=== PATIENT | male | born 1965 | race Caucasian/White ===

== ENCOUNTER 2018-06-26 02:34 | Outpatient (CLI) | payer MEDICAID, SELFPAY ==
[2018-06-26 11:40] LABS: HCT 47.5 % (40.0-50.0); HGB 15.9 g/dL (13.5-17.5); Mean Corp. HGB Concentration 33.5 g/dL (32.0-36.0); Mean Corpuscular Hemoglobin 29.4 pg (27.0-33.0); Mean Platelet Volume 11.4 fL (8.0-11.0); Platelet Count 227 x1000/uL (130-400); RBC Distribution Width 13.7 % (11.8-14.1); White Blood Cell Count 7.37 k/cumm (4.4-10.8)
[2018-06-26 12:15] LABS: Hemoglobin A1C 7.6 % (4.5-6.2)
[2018-06-26 12:35] LABS: ALT 55 U/L (12-78); AST 22 U/L (15-37); Albumin 3.9 g/dL (3.4-5.0); Alkaline Phosphatase 44 U/L (46-116); Anion Gap 6.6 mmol/L (3-11); BUN 16 mg/dL (7-18); Bilirubin, Total 0.4 mg/dL (0.2-1.0); CO2 30.4 mmol/L (21.0-32.0); CREATININE 0.87 mg/dL (0.70-1.30); Calcium 9.7 mg/dL (8.5-10.1); Chloride 104 mmol/L (98-107); Cholesterol 212 mg/dL (50-200); Glucose 132 mg/dL (70-100); HDL Cholesterol 45 mg/dL (40-60); LDL CHOLESTEROL 153 mg/dL (<100); Sodium 141 mmol/L (136-145); Total Protein 7.3 g/dL (6.4-8.2); Triglyceride 91 mg/dL (30-150)
[2018-06-26 12:42] LABS: COMMENT (LAB VIEW ONLY) 269.73 mg/dL; Microalb ug/mg Crea 43.5 ug/mg Cr
== END 2018-06-26 02:54 ==
PROVIDERS: PCP Family Medicine; Visit Provider Family Medicine
DX: E11.9 Type 2 diabetes mellitus without complications (principal); I10 Essential (primary) hypertension; G47.33 Obstructive sleep apnea (adult) (pediatric); Z00.00 Encounter for general adult medical examination without abnormal findings; Z01.818 Encounter for other preprocedural examination
CPT/HCPCS: 36415; 80053; 80061; 83721; 85027; 82043; 82570; 83036

== ENCOUNTER 2018-09-02 08:55 | Emergency (ER) | payer MEDICAID, SELFPAY ==
[2018-09-02 09:03] VITALS: BP 135/82; PULSE 109; RESP 18; TEMP 37.2; O2SAT 98
[2018-09-02 09:38] VITALS: PULSE 103
--- NOTE | 2018-09-02 09:47 | W.ED.GENAD ---
Discharge Plan Disposition Patient Disposition: HOME Condition: Stable Discharge Details Chief Complaint: RespSymp Clinical Impression: Sinusitis, Cough, Hyperglycemia, History of diabetes mellitus Primary Care Provider: Prem Maddox ED Provider: Alisa Chance Home Meds and New Rx's Prescriptions: New doxycycline hyclate 100 mg capsule 100 mg PO BID 7 Days Qty: 14 RF: 0 benzonatate [Tessalon Perles] 100 mg capsule 100 mg PO TID PRN (Reason: cough) Qty: 10 RF: 0 Continued amlodipine 5 mg tablet 5 mg PO DAILY Qty: 90 RF: 3 metformin 500 mg tablet 500 mg PO BID Qty: 180 RF: 3 imodium A-D 5 tab PO DAILY RF: 0 lisinopril 40 MG tablet 1 tab PO QAM Qty: 90 RF: 4 gabapentin 600 mg tablet 1,200 mg PO HS Qty: 180 RF: 4 Discharge Instructions Instructions: Sinusitis (ED), Diabetic Hyperglycemia (ED), Acute Cough (ED) Additional Instructions: Drink plenty of fluids and get plenty of rest. Take the antibiotics until finished. Take the cough medicine as needed and directed. Call your primary care doctor today to schedule a follow-up appointment for reevaluation within the next week. Continue to watch your intake of carbohydrates and sugar to help control your blood sugar. Check your sugar regularly. Return immediately to the emergency department any worsening or new concerning symptoms. Discharge Data Discharge Date/Time-TO BE ENTERED AT DEPARTURE: 09/02/18 10:37 Discharge Physician: Alisa Chance Medical Decision Making 53yo M w/ a h/o diabetes, hypertension who presents with sinus congestion and pain x 7 days, worsening with postnasal drip and cough with yellow sputum for the past 3 days. No shortness of breath or chest pain. Tactile fevers and chills. Heart rate mildly tachycardic, improved after evaluation in room. Normal respiratory rate and oxygen saturation. Afebrile. Patient appears nontoxic. He is speaking in full sentences, no submandibular swelling, no trismus, no drooling. Lungs clear to auscultation. Differential diagnosis includes sinusitis, pneumonia, URI. As patient does not appear in any acute respiratory distress, without complaint of shortness of breath and with normal lung sounds, do not suspect an acute severe pneumonia, but he was offered a chest x-ray but he declined this. Presentation does not appear consistent with flu, and since his symptoms have been present for 7 days, no utility likely with treatment. Patient states his glucose has been around 190. States he does not often check his sugar at home and his diet has been off lately. Accu-Chek 233. Patient was agreeable to lab work which was essentially unremarkable with normal bicarb and anion gap 11.9. Patient was instructed to increase his fluid intake, watch his carbohydrates and sugars and to check his sugar regularly. Due to his history of diabetes, will send home with a prescription for doxycycline to treat for sinusitis and possible early pneumonia. He is instructed to follow-up with your primary care doctor for reevaluation and return here immediately if worse. Medical Records Medical records reviewed: Yes I reviewed the patient's medical records. Lab Data Lab results reviewed: Yes I reviewed the patient's lab results. Laboratory Tests Range/Units 09/02/18 09/02/18 09:46 09:46 WBC (4.4-10.8) k/cumm 9.33 RBC (4.50-6.00) m/cumm 5.09 Hgb (13.5-17.5) g/dL 15.1 Hct (40.0-50.0) % 43.8 MCV (80-95) fL 86.1 MCH (27.0-33.0) pg 29.7 MCHC (32.0-36.0) g/dL 34.5 RDW (11.8-14.1) % 13.7 Plt Count (130-400) x1000/uL 198 MPV (8.0-11.0) fL 10.8 Immature Gran % 0.2 Neutrophils % 73.4 Lymphocytes % 13.6 Monocytes % 10.7 Eosinophils % 1.8 Basophils % 0.3 Absolute Neutrophils (1.2-6.7) k/cumm 6.84 H Absolute Lymphocytes (1.2-3.4) k/cumm 1.27 Absolute Monocytes (0.11-0.7) k/cumm 1.00 H Absolute Eosinophils (0.0-0.7) k/cumm 0.17 Absolute Basophils (0.0-0.2) k/cumm 0.03 Sodium (136-145) mmol/L 136 Potassium (3.5-5.1) mmol/L 4.3 Chloride (98-107) mmol/L 101 Carbon Dioxide (21.0-32.0) mmol/L 23.1 Anion Gap (3-11) mmol/L 11.9 H BUN (7-18) mg/dL 16 Creatinine (0.70-1.30) mg/dL 0.76 Estimated GFR/1.73 m2 (mL/min/1.73m2) >= 60.00 Glucose (70-100) mg/dL 261 H Calcium (8.5-10.1) mg/dL 8.9 HPI General Mode of arrival: ambulatory. Date/Time Provider Initiated Documentation: 09/02/18 09:07. Limitations to Documentation: no limitations. Information obtained by: patient. HPI Narrative: Patient is a 53-year-old male with a history of diabetes, hypertension, colitis who presents for sinus congestion and green nasal discharge for the past 2 days, worse over the past 3 days, now with cough with yellow and brown sputum. He admits to occasional hot and cold chills but denies any known fever. He states he has been eating and drinking normally. He also admits to generalized fatigue and malaise. He denies any chest pain or shortness of breath. He denies any recent antibiotics. He states he has been taking DayQuil and NyQuil with some relief. Related Data Home Medications Medication Instructions Recorded Confirmed Imodium A-D 5 tab PO DAILY 11/16/14 09/02/18 lisinopril 1 tab PO QAM #90 tab 09/26/17 09/02/18 gabapentin 600 mg tablet 1,200 mg PO HS #180 tab 04/21/18 09/02/18 amlodipine 5 mg tablet 5 mg PO DAILY #90 tab 06/11/18 09/02/18 metformin 500 mg tablet 500 mg PO BID #180 tab 07/07/18 07/07/18 benzonatate [Tessalon Perles] 100 mg PO TID PRN #10 cap 09/02/18 doxycycline hyclate 100 mg PO BID 7 Days #14 cap 09/02/18 Previous Rx's Medication Instructions Recorded lisinopril 1 tab PO QAM #90 tab 09/26/17 gabapentin 600 mg tablet 1,200 mg PO HS #180 tab 04/21/18 amlodipine 5 mg tablet 5 mg PO DAILY #90 tab 06/11/18 metformin 500 mg tablet 500 mg PO BID #180 tab 07/07/18 benzonatate [Tessalon Perles] 100 mg PO TID PRN #10 cap 09/02/18 doxycycline hyclate 100 mg PO BID 7 Days #14 cap 09/02/18 Allergies Allergy/AdvReac Type Severity Reaction Status Date / Time Penicillins Allergy Mild SKIN RASH Unverified 09/02/18 09:08 General Stated Complaint: RespSymp SRINIVAS: 3 Review of Systems Review of Systems All systems reviewed & are unremarkable except as noted in HPI and below Constitutional Reports as per HPI, Reports chills, Reports fatigue, Denies fever(s) and Reports malaise Eyes Denies blurry vision ENT Denies dizziness, Reports nasal congestion, Reports nasal discharge, Reports sinus pain, Reports sinus pressure, Denies sore throat and Denies throat swelling Cardiovascular Denies chest pain and Denies dyspnea Respiratory Reports cough and Denies dyspnea Gastrointestinal Denies abdominal pain, Denies diarrhea and Denies vomiting Genitourinary Denies hematuria and Denies dysuria Musculoskeletal Denies back pain and Denies numbness Integumentary/Breasts Denies lesions and Denies rash Neurologic Denies dizziness, Denies focal weakness and Denies numbness Endocrine Reports fatigue Allergic/Immunologic Denies throat swelling [facility] Medical History Colitis (Acute) Hyperlipemia (Acute) Diabetes (Chronic) HTN (hypertension) (Chronic) Kidney stones (Chronic) Surgical History Appendectomy Repair of inguinal hernia Family History Mother Diabetes Neoplasm Father Diabetes Sister No problems noted. Brother No problems noted. Brother No problems noted. Son No problems noted. Daughter No problems noted. Social History household members: significant other and children pets and animals: No sexually active: Yes do you think of yourself as: straight/heterosexual current gender identity: male frequency: does not exercise Smoking and Tabacco status: Never second hand exposure: Yes alcohol intake: current alcohol intake frequency: a few times a week Alcohol type: beer substance use type: does not use shantell/episcopal: Johovah Witness agree to transfusion: No What is your relationship status?: living with partner How often do you talk on the phone with friends or family?: never How often do you get together with friends or relatives?: never How often do you attend orthodoxy or christianity services?: 1-3 times per year Do you belong to any clubs or organized social groups?: no Panel score (0-1 are the most socially isolated patients): 1 Exam Const General: cooperative and no acute distress Orientation: alert and awake [facility] Head: normal to inspection Ears: hearing grossly normal bilaterally, external ears normal and TM's normal bilaterally General nose exam: external nose normal Face and sinus: normal facial exam and sinuses nontender Mouth: oral mucosae normal Teeth and gingiva: dentition normal Throat: posterior oropharynx normal Eyes General: appearance normal, both eyes and all related structures Eyelids: eyelids normal Pupils: PERRL EOM: EOM intact bilaterally Neck Neck: normal visual inspection Lymphatic: no lymphadenopathy noted Chest Chest: normal inspection of the chest Resp Effort & Inspection: normal respiratory effort and able to speak in complete sentences Auscultation: clear to auscultation bilaterally Cardio Rate: regular rate Rhythm: regular rhythm GI Inspection: normal to inspection and obesity Palpation: soft, not firm, no guarding, no hepatosplenomegaly, no masses and nontender Auscultation: normal bowel sounds Skin General skin exam: no rashes or lesions noted Neuro General: alert and awake Cognition: normal cognition Speech: speech normal Gait: normal gait Motor: muscle tone normal throughout Sensory Exam: no sensory deficits noted Extrem General: normal to inspection, full ROM, normal capillary refill and no edema Psych Appearance: grossly normal Mental Status: mental status grossly normal Speech and Movement: speech and movement normal Affect: normal affect Thought Process: normal Course Vital Signs Temperature 99.0 F 09/02/18 09:03 Pulse 109 H 09/02/18 09:03 Respiratory Rate 18 09/02/18 09:03 Blood Pressure 135/82 09/02/18 09:03 Pulse Oximetry 98 09/02/18 09:03 Temperature 99.0 F 09/02/18 09:03 Temperature Source Temporal Artery Scan 09/02/18 09:03 Pulse 103 H 09/02/18 09:38 Respiratory Rate 18 09/02/18 09:03 Respiratory Effort 09/02/18 09:05 Respiratory Depth Normal 09/02/18 09:05 Blood Pressure 135/82 09/02/18 09:03 Blood Pressure Position Sitting 09/02/18 09:03 Pulse Oximetry 98 09/02/18 09:03 Oxygen Delivery Method Room Air 09/02/18 09:03 Oxygen Flow Rate 0 09/02/18 09:03 Pain Level 6 09/02/18 09:03 Comment 09/02/18 09:38
[2018-09-02 09:59] LABS: Abs Immature Grans 0.02 k/cumm (0.0-0.09); Absolute Basophil Count 0.03 k/cumm (0.0-0.2); Absolute Eosinophil Count 0.17 k/cumm (0.0-0.7); Absolute Lymphocyte Count 1.27 k/cumm (1.2-3.4); Absolute Neutrophil Count 6.84 k/cumm (1.2-6.7); Basophils % 0.3; Eosinophils % 1.8; HCT 43.8 % (40.0-50.0); HGB 15.1 g/dL (13.5-17.5); Immature Grans % 0.2; Lymphocytes % 13.6; Mean Corp. HGB Concentration 34.5 g/dL (32.0-36.0); Mean Corpuscular Hemoglobin 29.7 pg (27.0-33.0); Mean Corpuscular Volume 86.1 fL (80-95); Mean Platelet Volume 10.8 fL (8.0-11.0); Monocytes % 10.7; Neutrophils % 73.4; Platelet Count 198 x1000/uL (130-400); RBC 5.09 m/cumm (4.50-6.00); RBC Distribution Width 13.7 % (11.8-14.1); White Blood Cell Count 9.33 k/cumm (4.4-10.8)
[2018-09-02 10:05] LABS: Anion Gap 11.9 mmol/L (3-11); BUN 16 mg/dL (7-18); CO2 23.1 mmol/L (21.0-32.0); CREATININE 0.76 mg/dL (0.70-1.30); Calcium 8.9 mg/dL (8.5-10.1); Chloride 101 mmol/L (98-107); Glucose 261 mg/dL (70-100); Potassium 4.3 mmol/L (3.5-5.1); Sodium 136 mmol/L (136-145)
== END 2018-09-02 10:37 | disposition home or self-care (01) ==
PROVIDERS: Emergency Provider Physician Assistant; PCP Family Medicine
DX: J01.90 Acute sinusitis, unspecified (principal); R05 Cough; E11.65 Type 2 diabetes mellitus with hyperglycemia; I10 Essential (primary) hypertension
CPT/HCPCS: 36415; 80048; 99283; 85025

== ENCOUNTER 2018-10-14 08:17 | Emergency (ER) | payer MEDICAID, SELFPAY ==
[2018-10-14 08:21] VITALS: BP 150/77; PULSE 102; RESP 14; TEMP 36.5; O2SAT 95
--- NOTE | 2018-10-14 08:57 | DI.RAD_ITS ---
SYMPTOM/DIAGNOSIS: COUGH, CONGESTION, WHEEZE PA AND LATERAL CHEST: Comparison is made with 12/29/13. The heart size is normal. The lungs show minimal scarring. No infiltrate, effusion or pulmonary edema is seen. IMPRESSION: No acute abnormality.
--- NOTE | 2018-10-14 08:58 | W.ED.GENAD ---
Discharge Plan Disposition Patient Disposition: HOME Condition: Improving Discharge Details Chief Complaint: RespSymp Clinical Impression: Acute bronchitis Primary Care Provider: Prem Maddox ED Provider: Mark Lim Home Meds and New Rx's Prescriptions: New azithromycin 250 mg tablet See Rx Instructions .ROUTE .COMPLEX Qty: 6 RF: 0 Continued amlodipine 5 mg tablet 5 mg PO DAILY Qty: 90 RF: 3 blood-glucose meter [[employer]Touch Ultra2] kit .ROUTE .MEDSUPPLY Qty: 1 RF: 0 OneTouch Ultra Blue Test Strip strip .ROUTE .MEDSUPPLY Qty: 100 RF: 4 imodium A-D 5 tab PO DAILY RF: 0 gabapentin 600 mg tablet 1,200 mg PO HS Qty: 180 RF: 4 lancets [OneTouch Delica Lancets] 33 gauge misc .ROUTE DAILY Qty: 100 RF: 4 lisinopril 40 mg tablet 40 mg PO QAM Qty: 90 RF: 4 benzonatate [Tessalon Perles] 100 mg capsule 100 mg PO TID PRN (Reason: cough) Qty: 10 RF: 0 Discharge Instructions Instructions: Acute Bronchitis (ED) Additional Instructions: Follow-up with regular doctor if not improving in 10 days time. May use albuterol inhaler, as discussed, every 4 hours as needed during times of illness. Take antibiotic as prescribed. Return for any acute concern Medical Decision Making 53-year-old male with 3 to 4 days of upper respiratory illness with cough, congestion, general malaise. Slightly tachycardic with a pulse of 102 but otherwise unremarkable vital signs and oxygenating normally. His exam is notable for discrete end expiratory wheeze with rhonchi. Does appear to have acute bronchitis with mild bronchospasm. Differential diagnosis includes bronchitis, pneumonia. Patient given inhaled DuoNeb updraft, referred for chest x-ray which does reveal mild plate like atelectasis on the left, but no focal consolidation, reviewed with Dr. Sharma. Will place on antibiotics with inhaler for home. He understands follow-up and return precautions HPI General Mode of arrival: ambulatory. Date/Time Provider Initiated Documentation: 10/14/18 08:52. Limitations to Documentation: no limitations. Information obtained by: patient. History of Present Illness 53 year old M presents to the emergency department with the chief complaint of Cough and congestion for days, described as moderate, Quality is described as dull, Patient reports no radiation. Patient started experiencing this day(s) and it has been intermittent. No relieving factors improve symptom(s), No exacerbating factors reported . Patient notes cough and fever/chills; denies chest pain, nausea/vomiting and shortness of breath. Patient did receive the following treatments prior to arrival, none Related Data Home Medications Medication Instructions Recorded Confirmed Imodium A-D 5 tab PO DAILY 11/16/14 10/14/18 gabapentin 600 mg tablet 1,200 mg PO HS #180 tab 04/21/18 10/14/18 amlodipine 5 mg tablet 5 mg PO DAILY #90 tab 06/11/18 10/14/18 benzonatate [Tessalon Perles] 100 mg PO TID PRN #10 cap 09/02/18 10/14/18 blood sugar diagnostic strips #100 each 09/25/18 10/14/18 blood-glucose meter kit #1 each 09/25/18 10/14/18 lancets 33 gauge #100 each 09/25/18 10/14/18 lisinopril 40 mg tablet 40 mg PO QAM #90 tab 09/29/18 10/14/18 azithromycin See Rx Instructions .ROUTE 10/14/18 .COMPLEX #6 tab Previous Rx's Medication Instructions Recorded gabapentin 600 mg tablet 1,200 mg PO HS #180 tab 04/21/18 amlodipine 5 mg tablet 5 mg PO DAILY #90 tab 06/11/18 benzonatate [Tessalon Perles] 100 mg PO TID PRN #10 cap 09/02/18 blood sugar diagnostic strips #100 each 09/25/18 blood-glucose meter kit #1 each 09/25/18 lancets 33 gauge #100 each 09/25/18 lisinopril 40 mg tablet 40 mg PO QAM #90 tab 09/29/18 azithromycin See Rx Instructions .ROUTE 10/14/18 .COMPLEX #6 tab Allergies Allergy/AdvReac Type Severity Reaction Status Date / Time Penicillins Allergy Mild SKIN RASH Unverified 10/14/18 08:25 General Stated Complaint: RespSymp SRINIVAS: 3 Review of Systems Review of Systems 6 systems reviewed and otherwise negative [facility] Medical History Colitis (Acute) Hyperlipemia (Acute) Diabetes (Chronic) HTN (hypertension) (Chronic) Kidney stones (Chronic) Surgical History Appendectomy Repair of inguinal hernia Family History Mother Diabetes Neoplasm Father Diabetes Sister No problems noted. Brother No problems noted. Brother No problems noted. Son No problems noted. Daughter No problems noted. Social History Smoking/Tobacco Use Status: Never Second Hand Exposure: Yes Alcohol Intake: current Alcohol Intake frequency: a few times a week Alcohol type: beer Drug use: Never Substance use type: does not use Household members: significant other and children Pets and animals: No Sexually active: Yes Do you think of yourself as: straight/heterosexual Current gender identity: male What is your relationship status?: living with partner How often do you talk on the phone with friends or family?: never How often do you get together with friends or relatives?: never How often do you attend congregational or jehovah's witness services?: 1-3 times per year Do you belong to any clubs or organized social groups?: no Panel score (0-1 are the most socially isolated patients): 1 Frequency: does not exercise Mally/Adventist: Johovah Witness Agree to transfusion: No Do you feel safe at home: Yes Do you feel safe in your relationship?: Yes Exam Narrative Exam Narrative: GEN: awake, alert, oriented 3. Pleasant, well groomed, interactive. HEAD: Normocephalic, atraumatic ENT: Mucous membranes moist, oropharynx unremarkable, External ear exam unremarkable EYES: PERRL, EOMI NECK: Full ROM, no GUCCI, no menigismus CHEST/RESP: Nontender, bilateral mild end expiratory wheeze with few scattered rhonchi CARDIOVASCULAR: RRR, no murmur, rub be. 2+ Rad pulse bilateral ABDOMEN: Soft, nontender, no mass. +Bowel sounds EXT: Full ROM, no edema, no rash Neuro: Grossly normal neurologic exam, conversant, interactive. Psych: Speech fluent, thoughts congruent, affect normal Course Vital Signs Temperature 36.5 C 10/14/18 08:21 Pulse 102 H 10/14/18 08:21 Respiratory Rate 14 10/14/18 08:21 Blood Pressure 150/77 H 10/14/18 08:21 Pulse Oximetry 95 10/14/18 08:21 Temperature 36.5 C 10/14/18 08:21 Temperature Source Temporal Artery Scan 10/14/18 08:21 Pulse 102 H 10/14/18 08:21 Respiratory Rate 14 10/14/18 08:21 Respiratory Effort Non-Labored 10/14/18 08:23 Respiratory Depth Normal 10/14/18 08:23 Blood Pressure 150/77 H 10/14/18 08:21 Blood Pressure Position Sitting 10/14/18 08:21 Pulse Oximetry 95 10/14/18 08:21 Oxygen Delivery Method Room Air 10/14/18 08:21 Oxygen Flow Rate 0 10/14/18 08:21 Pain Level 0 10/14/18 08:21
--- NOTE | 2018-10-14 09:01 | ED.GENADUL_ITS ---
Discharge Plan Disposition Patient Disposition: HOME Condition: Improving Discharge Details Chief Complaint: RespSymp Clinical Impression: Acute bronchitis Primary Care Provider: Prem Maddox ED Provider: Mark Lim Home Meds and New Rx's Prescriptions: New azithromycin 250 mg tablet See Rx Instructions .ROUTE .COMPLEX Qty: 6 RF: 0 Continued amlodipine 5 mg tablet 5 mg PO DAILY Qty: 90 RF: 3 blood-glucose meter [[employer] Ultra2] kit .ROUTE .MEDSUPPLY Qty: 1 RF: 0 OneTouch Ultra Blue Test Strip strip .ROUTE .MEDSUPPLY Qty: 100 RF: 4 imodium A-D 5 tab PO DAILY RF: 0 gabapentin 600 mg tablet 1,200 mg PO HS Qty: 180 RF: 4 lancets [OneTouch Delica Lancets] 33 gauge misc .ROUTE DAILY Qty: 100 RF: 4 lisinopril 40 mg tablet 40 mg PO QAM Qty: 90 RF: 4 benzonatate [Tessalon Perles] 100 mg capsule 100 mg PO TID PRN (Reason: cough) Qty: 10 RF: 0 Discharge Instructions Instructions: Acute Bronchitis (ED) Additional Instructions: Follow-up with regular doctor if not improving in 10 days time. May use albuterol inhaler, as discussed, every 4 hours as needed during times of illness. Take antibiotic as prescribed. Return for any acute concern Medical Decision Making 53-year-old male with 3 to 4 days of upper respiratory illness with cough, congestion, general malaise. Slightly tachycardic with a pulse of 102 but otherwise unremarkable vital signs and oxygenating normally. His exam is notable for discrete end expiratory wheeze with rhonchi. Does appear to have acute bronchitis with mild bronchospasm. Differential diagnosis includes bronchitis, pneumonia. Patient given inhaled DuoNeb updraft, referred for chest x-ray which does reveal mild plate like atelectasis on the left, but no focal consolidation, reviewed with Dr. Sharma. Will place on antibiotics with inhaler for home. He understands follow-up and return precautions HPI General Mode of arrival: ambulatory . Date/Time Provider Initiated Documentation: 10/14/18 08:52 . Limitations to Documentation: no limitations . Information obtained by: patient . History of Present Illness 53 year old M presents to the emergency department with the chief complaint of Cough and congestion for days, described as moderate, Quality is described as dull, Patient reports no radiation. Patient started experiencing this day(s) and it has been intermittent. No relieving factors improve symptom(s), No exacerbating factors reported . Patient notes cough and fever/chills; denies chest pain, nausea/vomiting and shortness of breath. Patient did receive the following treatments prior to arrival, none Related Data Home Medications Medication Instructions Recorded Confirmed Imodium A-D 5 tab PO DAILY 11/16/14 10/14/18 gabapentin 600 mg tablet 1,200 mg PO HS #180 tab 04/21/18 10/14/18 amlodipine 5 mg tablet 5 mg PO DAILY #90 tab 06/11/18 10/14/18 benzonatate [Tessalon Perles] 100 mg PO TID PRN #10 cap 09/02/18 10/14/18 blood sugar diagnostic strips #100 each 09/25/18 10/14/18 blood-glucose meter kit #1 each 09/25/18 10/14/18 lancets 33 gauge #100 each 09/25/18 10/14/18 lisinopril 40 mg tablet 40 mg PO QAM #90 tab 09/29/18 10/14/18 azithromycin See Rx Instructions .ROUTE 10/14/18 .COMPLEX #6 tab Previous Rx's Medication Instructions Recorded gabapentin 600 mg tablet 1,200 mg PO HS #180 tab 04/21/18 amlodipine 5 mg tablet 5 mg PO DAILY #90 tab 06/11/18 benzonatate [Tessalon Perles] 100 mg PO TID PRN #10 cap 09/02/18 blood sugar diagnostic strips #100 each 09/25/18 blood-glucose meter kit #1 each 09/25/18 lancets 33 gauge #100 each 09/25/18 lisinopril 40 mg tablet 40 mg PO QAM #90 tab 09/29/18 azithromycin See Rx Instructions .ROUTE 10/14/18 .COMPLEX #6 tab Allergies Allergy/AdvReac Type Severity Reaction Status Date / Time Penicillins Allergy Mild SKIN RASH Unverified 10/14/18 08:25 General Stated Complaint: RespSymp SRINIVAS: 3 Review of Systems Review of Systems 6 systems reviewed and otherwise negative [facility] Medical History Colitis (Acute) Hyperlipemia (Acute) Diabetes (Chronic) HTN (hypertension) (Chronic) Kidney stones (Chronic) Surgical History Appendectomy Repair of inguinal hernia Family History Mother Diabetes Neoplasm Father Diabetes Sister No problems noted. Brother No problems noted. Brother No problems noted. Son No problems noted. Daughter No problems noted. Social History Smoking/Tobacco Use Status: Never Second Hand Exposure: Yes Alcohol Intake: current Alcohol Intake frequency: a few times a week Alcohol type: beer Drug use: Never Substance use type: does not use Household members: significant other and children Pets and animals: No Sexually active: Yes Do you think of yourself as: straight/heterosexual Current gender identity: male What is your relationship status?: living with partner How often do you talk on the phone with friends or family?: never How often do you get together with friends or relatives?: never How often do you attend hoahaoism or islam services?: 1-3 times per year Do you belong to any clubs or organized social groups?: no Panel score (0-1 are the most socially isolated patients): 1 Frequency: does not exercise Mally/Methodist: Johovah Witness Agree to transfusion: No Do you feel safe at home: Yes Do you feel safe in your relationship?: Yes Exam Narrative Exam Narrative: GEN: awake, alert, oriented 3. Pleasant, well groomed, interactive. HEAD: Normocephalic, atraumatic ENT: Mucous membranes moist, oropharynx unremarkable, External ear exam unremarkable EYES: PERRL, EOMI NECK: Full ROM, no GUCCI, no menigismus CHEST/RESP: Nontender, bilateral mild end expiratory wheeze with few scattered rhonchi CARDIOVASCULAR: RRR, no murmur, rub be. 2+ Rad pulse bilateral ABDOMEN: Soft, nontender, no mass. +Bowel sounds EXT: Full ROM, no edema, no rash Neuro: Grossly normal neurologic exam, conversant, interactive. Psych: Speech fluent, thoughts congruent, affect normal Course Vital Signs Temperature 36.5 C 10/14/18 08:21 Pulse 102 H 10/14/18 08:21 Respiratory Rate 14 10/14/18 08:21 Blood Pressure 150/77 H 10/14/18 08:21 Pulse Oximetry 95 10/14/18 08:21 Temperature 36.5 C 10/14/18 08:21 Temperature Source Temporal Artery Scan 10/14/18 08:21 Pulse 102 H 10/14/18 08:21 Respiratory Rate 14 10/14/18 08:21 Respiratory Effort Non-Labored 10/14/18 08:23 Respiratory Depth Normal 10/14/18 08:23 Blood Pressure 150/77 H 10/14/18 08:21 Blood Pressure Position Sitting 10/14/18 08:21 Pulse Oximetry 95 10/14/18 08:21 Oxygen Delivery Method Room Air 10/14/18 08:21 Oxygen Flow Rate 0 10/14/18 08:21 Pain Level 0 10/14/18 08:21
[2018-10-14 09:09] VITALS: PULSE 102; RESP 1; RESP 12; O2SAT 95
[2018-10-14] MEDS: Albuterol/Ipratropium 3 ML UPD VIAL UPD (09:09)
[2018-10-14] MEDS: Albuterol HFA 8 GM 60 PUFF INH IH (09:09)
[2018-10-14] MEDS: Inhaler, Assist Device 1 EACH MC (09:09)
== END 2018-10-14 09:32 | disposition home or self-care (01) ==
PROVIDERS: Emergency Provider Emergency Medicine; PCP Family Medicine
DX: J20.9 Acute bronchitis, unspecified (principal)
CPT/HCPCS: 36415; 80048; 80061; 83721; 94640; 99283; 71046; 83036; J7620

== ENCOUNTER 2018-10-14 09:33 | Outpatient (CLI) | payer MEDICAID, SELFPAY ==
[2018-10-14 10:54] LABS: Anion Gap 8.9 mmol/L (3-11); BUN 15 mg/dL (7-18); CO2 28.1 mmol/L (21.0-32.0); CREATININE 0.98 mg/dL (0.70-1.30); Calcium 9.2 mg/dL (8.5-10.1); Chloride 105 mmol/L (98-107); Cholesterol 189 mg/dL (50-200); Glucose 211 mg/dL (70-100); HDL Cholesterol 37 mg/dL (40-60); LDL CHOLESTEROL 127 mg/dL (<100); Potassium 4.3 mmol/L (3.5-5.1); Sodium 142 mmol/L (136-145); Triglyceride 207 mg/dL (30-150)
[2018-10-14 12:38] LABS: Hemoglobin A1C 9.3 % (4.5-6.2)
== END 2018-10-14 09:53 ==
PROVIDERS: Family Medicine; PCP Family Medicine; Visit Provider Family Medicine
DX: E11.9 Type 2 diabetes mellitus without complications (principal)
CPT/HCPCS: 36415; 80048; 80061; 83721; 83036

== ENCOUNTER 2019-02-14 11:53 | Emergency (ER) | payer MEDICAID, SELFPAY ==
[2019-02-14 11:59] VITALS: BP 138/84; PULSE 87; RESP 16; TEMP 37; O2SAT 97
--- NOTE | 2019-02-14 12:20 | DI.RAD_ITS ---
SYMPTOM/DIAGNOSIS: CHEST PAIN LEFT PA AND LATERAL CHEST: Comparison is made with 14 October 2018. The heart size is normal. The lungs are clear with the exception of minimal linear scarring at both lower lung ramirez. There is no pneumothorax, rib or spine fracture. There are mild degenerative changes in the thoracic spine. IMPRESSION: No acute abnormality.
--- NOTE | 2019-02-14 12:20 | DI.RAD_ITS ---
SYMPTOM/DIAGNOSIS: INFECTED AMPUTATED FINGER LEFT HAND: There are no prior comparison exams. There is previous amputation at the middle phalanx of the index finger. No acute fracture or bony erosions are seen. There is soft tissue swelling distally. No foreign body is seen. IMPRESSION: Soft tissue swelling and prior amputation. No plain film evidence of osteomyelitis.
[2019-02-14 12:35] LABS: Abs Immature Grans 0.02 k/cumm (0.0-0.09); Absolute Basophil Count 0.03 k/cumm (0.0-0.2); Absolute Eosinophil Count 0.18 k/cumm (0.0-0.7); Absolute Lymphocyte Count 1.81 k/cumm (1.2-3.4); Absolute Monocyte Count 0.69 k/cumm (0.11-0.7); Absolute Neutrophil Count 5.95 k/cumm (1.2-6.7); Basophils % 0.3; Eosinophils % 2.1; HCT 47.4 % (40.0-50.0); HGB 15.8 g/dL (13.5-17.5); Immature Grans % 0.2; Lymphocytes % 20.9; Mean Corp. HGB Concentration 33.3 g/dL (32.0-36.0); Mean Corpuscular Hemoglobin 28.9 pg (27.0-33.0); Mean Corpuscular Volume 86.7 fL (80-95); Mean Platelet Volume 10.5 fL (8.0-11.0); Monocytes % 7.9; Neutrophils % 68.6; Platelet Count 237 x1000/uL (130-400); RBC 5.47 m/cumm (4.50-6.00); RBC Distribution Width 13.8 % (11.8-14.1); White Blood Cell Count 8.68 k/cumm (4.4-10.8)
--- NOTE | 2019-02-14 12:42 | ED.GENADUL_ITS ---
Discharge Plan Disposition Patient Disposition: HOME Condition: Fair Discharge Details Chief Complaint: GenMedical Clinical Impression: Finger infection, Chest pain Primary Care Provider: Samy Uriarte ED Provider: Terese Shin Home Meds and New Rx's Prescriptions: New cephalexin [Keflex] 500 mg capsule 500 mg PO QID Qty: 39 RF: 0 Continued amlodipine 5 mg tablet 5 mg PO DAILY Qty: 90 RF: 3 (DME) blood-glucose meter [OneTouch Ultra2 Meter] kit See Dose Instructions .ROUTE .MEDSUPPLY Qty: 1 RF: 0 (DME) OneTouch Ultra Blue Test Strip strip See Dose Instructions .ROUTE .MEDSUPPLY Qty: 100 RF: 4 Jardiance 25 mg tablet 25 mg PO QAM Qty: 30 RF: 11 imodium A-D 5 tab PO DAILY RF: 0 gabapentin 600 mg tablet 1,200 mg PO HS Qty: 180 RF: 4 (DME) lancets [OneTouch Delica Lancets] 33 gauge misc See Dose Instructions .ROUTE DAILY Qty: 100 RF: 4 lisinopril 40 mg tablet 40 mg PO QAM Qty: 90 RF: 4 No Action ibuprofen 200 mg capsule 600 mg PO Q6H PRNRF: 0 acetaminophen 500 mg capsule 500 mg PO Q4H PRNRF: 0 Discharge Instructions Instructions: Chest Pain (ED), Cellulitis (ED) Additional Instructions: Please take full course of anabolic as prescribed. Please follow-up with orthopedics. Regarding your chest pain, please follow-up with your primary care physician. Additional diagnostic testing may be necessary should pain persist. A tick lab panel was sent today. It is important that you follow-up with your primary care physician about the results which are pending at time of discharge. Please contact your primary care physician to arrange follow-up. Return to the ER for any worsening or new concerning symptoms. 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 Patient did drain a pustule in the area a few days ago which seemed to help his symptoms. Swelling now recurring. No definite area to incise and drain at this time. Will initiatekeflex (patient has mild PCN allergy and has tolerated keflex in past). Will xray digit. Tetanus utd. Chest discomfort seems musculoskeletal in etiology -positional, point tender. Patient does have risk factors for ACS. I will screen with ECG and troponin. Screening ECG was reviewed and interpreted by me: Sinus rhythm 88 bpm, short NE with NE interval of 108, QRS duration with mild nonspecific widening at 112, normal axis, nondiagnostic. No STEMI. Tick panel sent. --Initial labs reviewed and nondiagnostic. Chest x-ray was reviewed and interpreted by radiology: No acute findings. Left index finger x-ray interpreted by radiology:Prominence of the soft tissues in the region of amputation, may related to chronic scarring versus acute edematous changes. Correlate with physical examination findings and clinical history. No evidence of underlying osseous destruction. -- Spoke with Dr. Winters who will follow-up with patient. 15:27 -- Care signed out to POLINA Shin. <POLINA Gonzalez - Last Filed: 02/14/19 22:19> Care transitioned to myself with repeat troponin pending. Repeat troponin remains <0.05 Discussed with patient. Currently asymptomatic. Patient discharged home with plan for finger infection as outlined by Dr. Sales. We will follow-up with primary care regarding his atypical chest pain. He continues to endorse that this is likely musculoskeletal, he reports that it is only with position or palpation. He was given strict return precautions. All his questions and concerns were addressed and he is in agreement this plan. HPI <Isaias Sales MD - Last Filed: 02/22/19 11:07> General Mode of arrival: ambulatory . Date/Time Provider Initiated Documentation: 02/14/19 12:07 . Limitations to Documentation: no limitations . Information obtained by: patient . HPI Narrative: 53yo m with history of diet- controlled diabetes here with chief complaint of finger infection. Patient notes remote partial amputation of his left index finger related to traumatic injury. He states that he sustained a superficial laceration to the stub of left index finger sometime early this week. He subsequently developed a pimple adjacent to the healing wound. He prepped the area with alcohol and stuck at needle into the fluctuant area and expressed a significant amount of pus a few days ago. Swelling seemed to improve. He now notes today recurrent swelling in the area. No associated redness or warmth. No significant pain. No associated fever. Patient also notes that he is been intermittently achy in his joints over the past few months. Specifically today he notes that he has had some left-sided chest achiness that is worse with certain positions. Pain is localized to left upper anterior chest and seems to radiate to his left upper back. Pain is not described as a tearing sensation. Pain is been present since early this morning today. Patient notes when he pushes on an area of his chest it worsens the pain. Patient states he has been bitten by multiple ticks in the past year. He has not developed any notable rash. He is concerned that his aches may be related to Lyme disease. He has not been tested for Lyme disease. Related Data Home Medications Medication Instructions Recorded Confirmed Imodium A-D 5 tab PO DAILY 11/16/14 02/18/19 gabapentin 600 mg tablet 1,200 mg PO HS #180 tab 04/21/18 02/18/19 amlodipine 5 mg tablet 5 mg PO DAILY #90 tab 06/11/18 02/18/19 blood sugar diagnostic #100 each 09/25/18 02/18/19 blood-glucose meter #1 each 09/25/18 02/18/19 lancets 33 gauge #100 each 09/25/18 02/18/19 lisinopril 40 mg tablet 40 mg PO QAM #90 tab 09/29/18 02/18/19 empagliflozin 25 mg tablet 25 mg PO QAM #30 tab 11/28/18 02/18/19 cephalexin [Keflex] 500 mg PO QID #39 cap 02/14/19 02/18/19 acetaminophen 500 mg capsule 500 mg PO Q4H PRN 02/18/19 02/18/19 ibuprofen 200 mg capsule 600 mg PO Q6H PRN cap 02/18/19 02/18/19 Previous Rx's Medication Instructions Recorded gabapentin 600 mg tablet 1,200 mg PO HS #180 tab 04/21/18 amlodipine 5 mg tablet 5 mg PO DAILY #90 tab 06/11/18 blood sugar diagnostic #100 each 09/25/18 blood-glucose meter #1 each 09/25/18 lancets 33 gauge #100 each 09/25/18 lisinopril 40 mg tablet 40 mg PO QAM #90 tab 09/29/18 empagliflozin 25 mg tablet 25 mg PO QAM #30 tab 11/28/18 cephalexin [Keflex] 500 mg PO QID #39 cap 02/14/19 Allergies Allergy/AdvReac Type Severity Reaction Status Date / Time Penicillins Allergy Mild SKIN RASH Unverified 02/18/19 10:17 General Stated Complaint: Cellulitis SRINIVAS: 4 Review of Systems <Isaias Sales MD - Last Filed: 02/22/19 11:07> Review of Systems All systems reviewed & are unremarkable except as noted in HPI and below Constitutional Reports body ache(s) and Denies fever(s) Cardiovascular Reports as per HPI and Denies dyspnea Respiratory Denies dyspnea Integumentary/Breasts Reports as per HPI and Denies rash PFSH <Isaias Sales MD - Last Filed: 02/22/19 11:07> Medical History Colitis (Acute) Diabetes (Chronic) HTN (hypertension) (Chronic) Hyperlipemia (Acute) Kidney stones (Chronic) Surgical History Appendectomy Repair of inguinal hernia Family History Mother Diabetes Neoplasm Father Diabetes Sister No problems noted. Brother No problems noted. Brother No problems noted. Son No problems noted. Daughter No problems noted. Social History Smoking/Tobacco Use Status: Never Second Hand Exposure: Yes Alcohol Intake: current Alcohol Intake frequency: a few times a week Alcohol type: beer Drug use: Never Substance use type: does not use Household members: significant other and children Pets and animals: No Sexually active: Yes Do you think of yourself as: straight/heterosexual Current gender identity: male What is your relationship status?: living with partner How often do you talk on the phone with friends or family?: never How often do you get together with friends or relatives?: never How often do you attend rastafarian or latter-day services?: 1-3 times per year Do you belong to any clubs or organized social groups?: no Panel score (0-1 are the most socially isolated patients): 1 Frequency: does not exercise Mally/Cheondoism: Confucianist Agree to transfusion: No Do you feel safe at home: Yes Do you feel safe in your relationship?: Yes Exam <Isaias Sales MD - Last Filed: 02/22/19 11:07> Const General: cooperative and no acute distress HENMT Head: normocephalic Mouth: moist mucous membranes Eyes Conjunctivae: normal conjunctivae Sclera: normal sclerae Neck Neck: trachea midline and supple Chest Chest: tenderness pectoral muscle on the left with point tenderness laterally Resp Auscultation: clear to auscultation bilaterally, no rales, no rhonchi and no wheezes Cardio Jugular venous pressure: no JVD Rate: regular rate and not tachycardic Rhythm: regular rhythm GI Palpation: soft, not firm, no guarding, no masses, not rigid and nontender Back/Spine/Pelvis Thoracic/Lumbar Spine: paraspinal tenderness (left upper thoracic point tender) Skin Lesions: lesion noted (rupture pustule healing left 2nd with no erythema) Neuro General: alert, awake, oriented x3 and tone normal Extrem Left upper extremity: hand Details: other (2nd digit partial amputation with mild fullness to stump, no warmth or erythema, no induration or fluctuance); no unusual warmth Psych Appearance: grossly normal Mental Status: mental status grossly normal Course <Isaias Sales MD - Last Filed: 02/22/19 11:07> Vital Signs Temperature 37 C 02/14/19 11:59 Pulse 87 02/14/19 11:59 Respiratory Rate 16 02/14/19 11:59 Blood Pressure 138/84 02/14/19 11:59 Pulse Oximetry 97 02/14/19 11:59 Temperature 37 C 02/14/19 11:59 Temperature Source Temporal Artery Scan 02/14/19 11:59 Pulse 87 02/14/19 11:59 Respiratory Rate 16 02/14/19 11:59 Blood Pressure 138/84 02/14/19 11:59 Blood Pressure Position Sitting 02/14/19 11:59 Pulse Oximetry 97 02/14/19 11:59 Oxygen Delivery Method Room Air 02/14/19 11:59 Oxygen Flow Rate 0 02/14/19 11:59 Pain Level 2 02/14/19 11:59 Comment 02/14/19 11:59 Lab/Test Results Lab/Test Results: Laboratory Tests Range/Units 02/14/19 12:15 WBC (4.4-10.8) k/cumm 8.68 RBC (4.50-6.00) m/cumm 5.47 Hgb (13.5-17.5) g/dL 15.8 Hct (40.0-50.0) % 47.4 MCV (80-95) fL 86.7 MCH (27.0-33.0) pg 28.9 MCHC (32.0-36.0) g/dL 33.3 RDW (11.8-14.1) % 13.8 Plt Count (130-400) x1000/uL 237 MPV (8.0-11.0) fL 10.5 Immature Gran % 0.2 Neutrophils % 68.6 Lymphocytes % 20.9 Monocytes % 7.9 Eosinophils % 2.1 Basophils % 0.3 Absolute Neutrophils (1.2-6.7) k/cumm 5.95 Absolute Lymphocytes (1.2-3.4) k/cumm 1.81 Absolute Monocytes (0.11-0.7) k/cumm 0.69 Absolute Eosinophils (0.0-0.7) k/cumm 0.18 Absolute Basophils (0.0-0.2) k/cumm 0.03 Sign Out <Isaias Sales MD - Last Filed: 02/22/19 11:07> Sign Out Data: Sign Out Comment: Care signed out to POLINA Shin. Plan to follow-up on delta trop and dispo patient. Last updated by Isaias Sales MD at 02/14/19 15:29
[2019-02-14 12:53] LABS: ALT 39 U/L (16-63); AST 19 U/L (15-37); Alkaline Phosphatase 43 U/L (46-116); Anion Gap 9.9 mmol/L (3-11); BUN 18 mg/dL (7-18); Bilirubin, Total 0.4 mg/dL (0.2-1.0); CO2 26.1 mmol/L (21.0-32.0); CREATININE 0.76 mg/dL (0.70-1.30); Calcium 8.8 mg/dL (8.5-10.1); Chloride 103 mmol/L (98-107); Glucose 120 mg/dL (70-100); Magnesium 1.8 mg/dL (1.8-2.4); Potassium 4.2 mmol/L (3.5-5.1); Sodium 139 mmol/L (136-145); Total Protein 7.7 g/dL (6.4-8.2)
[2019-02-14 12:57] VITALS: RESP 16
[2019-02-14 12:57] LABS: Troponin I < 0.05 ng/mL (0.00-0.06)
[2019-02-14] MEDS: Cephalexin 500 MG CAP PO (13:00)
[2019-02-14 13:40] VITALS: BP 127/84; PULSE 84; RESP 16; O2SAT 95
--- NOTE | 2019-02-14 13:41 | DI.VRAD_ITS ---
EXAM: XR Chest, 2 Views EXAM DATE/TIME: 02/14/2019 1:03 PM CLINICAL HISTORY: 53 years old, male; Other: Chest pain, left TECHNIQUE: Imaging protocol: XR of the chest, 2 views. COMPARISON: CR XR CHEST 2V PA LATERAL 10/14/2018 9:07 AM FINDINGS: Lungs: Mild linear atelectasis in the left lower lung zone are unchanged. No focal airspace opacity or pulmonary edema. Pleural space: Unremarkable. No pleural effusion. No pneumothorax. Heart/Mediastinum: Unremarkable. No cardiomegaly. Bones/joints: There is mild stable loss in vertebral body heights involving the mid thoracic vertebrae. IMPRESSION: No acute findings. Dictated and Authenticated by: Abbie Gomez MD. Ordering:TABITHA Esparza MD
--- NOTE | 2019-02-14 13:44 | DI.VRAD_ITS ---
EXAM: XR Left Finger(s) EXAM DATE/TIME: 02/14/2019 1:03 PM CLINICAL HISTORY: 53 years old, male; Other: Infected amputated finger; Prior surgery; Surgery date: 6+ months; Surgery type: Amputated finger many years ago TECHNIQUE: Imaging protocol: XR Left fingers. Views: Minimum 2 views. COMPARISON: No relevant prior studies available. FINDINGS: Bones/joints: The left distal second phalanx is absent, consistent with reported amputation. No evidence of underlying osseous destruction. No acute fracture or dislocation. Soft tissues: There is prominence of the distal soft tissues, which may be postsurgical scarring or related to acute edema. IMPRESSION: Prominence of the soft tissues in the region of amputation, may related to chronic scarring versus acute edematous changes. Correlate with physical examination findings and clinical history. No evidence of underlying osseous destruction. Dictated and Authenticated by: Abbie Gomez MD. Ordering:TABITHA Esparza MD
[2019-02-14 15:56] LABS: Troponin I < 0.05 ng/mL (0.00-0.06)
[2019-02-14 16:12] VITALS: BP 129/64; PULSE 82; RESP 16; TEMP 36.5; O2SAT 95
[2019-02-16 10:59] LABS: Lyme Ab w Rflx to Lyme Confirm Negative
[2019-02-17 00:23] LABS: Anaplasma phagocytophilum Negative (Negative); B. miyamotoi PCR Negative (Negative); Babesia divergens/MO-1 Negative (Negative); Babesia duncani Negative (Negative); Babesia microti Negative (Negative); Ehrlichia chaffeensis Negative (Negative); Ehrlichia ewingii/canis Negative (Negative); Ehrlichia muris eauclairensis Negative (Negative)
== END 2019-02-14 16:25 | disposition home or self-care (01) ==
PROVIDERS: Student in an Organized Health Care Education/Training Program; Emergency Provider Physician Assistant; PCP Family Medicine
DX: L03.114 Cellulitis of left upper limb (principal); R07.9 Chest pain, unspecified; E11.9 Type 2 diabetes mellitus without complications; Z89.022 Acquired absence of left finger(s)
CPT/HCPCS: 36415; 80053; 87798; 93005; 99285; 71046; 73140; 83735; 84484; 85025; 86618; 93010

== ENCOUNTER 2019-02-25 13:03 | Outpatient (CLI) | payer MEDICAID, SELFPAY ==
[2019-02-25 14:48] LABS: ALT 40 U/L (16-63); AST 21 U/L (15-37); Albumin 4.1 g/dL (3.4-5.0); Alkaline Phosphatase 46 U/L (46-116); Anion Gap 10.6 mmol/L (3-11); BUN 17 mg/dL (7-18); Bilirubin, Total 0.3 mg/dL (0.2-1.0); CO2 25.4 mmol/L (21.0-32.0); CREATININE 0.93 mg/dL (0.70-1.30); Calcium 9.4 mg/dL (8.5-10.1); Calculated LDL 128 mg/dL; Chloride 106 mmol/L (98-107); Cholesterol 197 mg/dL (50-200); Glucose 123 mg/dL (70-100); HDL Cholesterol 43 mg/dL (40-60); Potassium 4.5 mmol/L (3.5-5.1); Sodium 142 mmol/L (136-145); Total Protein 7.4 g/dL (6.4-8.2); Triglyceride 133 mg/dL (30-150)
== END 2019-02-25 13:23 ==
PROVIDERS: PCP Family Medicine; Visit Provider Family Medicine
DX: E11.9 Type 2 diabetes mellitus without complications (principal)
CPT/HCPCS: 80053; 80061; 83036

== ENCOUNTER 2020-12-09 02:54 | Outpatient (CLI) | payer MEDICAID, SELFPAY ==
[2020-12-09 14:39] LABS: ALT 52 U/L (16-63); AST 18 U/L (15-37); Albumin 4.2 g/dL (3.4-5.0); Alkaline Phosphatase 44 U/L (46-116); Anion Gap 11.7 mmol/L (3-11); BUN 20 mg/dL (7-18); Bilirubin, Total 0.5 mg/dL (0.2-1.0); CO2 24.3 mmol/L (21.0-32.0); CREATININE 0.8 mg/dL (0.70-1.30); Calcium 9.6 mg/dL (8.5-10.1); Calculated LDL 149 mg/dL (<100); Chloride 102 mmol/L (98-107); Cholesterol 232 mg/dL (<200); Glucose 181 mg/dL (74-106); HDL Cholesterol 43 mg/dL (40-60); Potassium 4.8 mmol/L (3.5-5.1); Sodium 138 mmol/L (136-145); Total Protein 7.4 g/dL (6.4-8.2); Triglyceride 204 mg/dL (<150)
== END 2020-12-09 02:55 | disposition home or self-care (01) ==
LOC: LBO 02:54
PROVIDERS: PCP Nurse Practitioner Family; Visit Provider Nurse Practitioner Family
DX: I10 Essential (primary) hypertension (principal); Z13.220 Encounter for screening for lipoid disorders
CPT/HCPCS: 36415; 80053; 80061

== ENCOUNTER 2021-02-13 02:43 | Outpatient (CLI) | payer MEDICAID, SELFPAY ==
[2021-02-13 12:58] LABS: TSH 0.92 uIU/mL (0.36-3.74)
[2021-02-14 11:51] LABS: Syphilis Serology (RPR) Negative (Negative)
== END 2021-02-13 02:44 | disposition home or self-care (01) ==
LOC: LOS 02:43
PROVIDERS: PCP Nurse Practitioner Family; Visit Provider Nurse Practitioner Family
DX: R41.3 Other amnesia (principal)
CPT/HCPCS: 36415; 84443; 86592

== ENCOUNTER 2021-07-31 07:32 | Emergency (ER) | payer MEDICAID, SELFPAY ==
[2021-07-31 07:38] VITALS: BP 128/74; PULSE 89; RESP 14; TEMP 36.7
--- NOTE | 2021-07-31 08:33 | ED.GENADUL_ITS ---
Discharge Plan Disposition Patient Disposition: HOME Condition: Stable Discharge Details Clinical Impression: Cellulitis of finger of left hand Primary Care Provider: Toy Kelly ED Provider: Miguelangel Waddell Home Meds and New Rx's Prescriptions: New doxycycline hyclate 100 mg capsule 100 mg PO BID Qty: 20 RF: 0 Continued ibuprofen 200 mg capsule 600 mg PO Q6H PRNRF: 0 acetaminophen 500 mg capsule 500 mg PO Q4H PRNRF: 0 Jardiance 25 mg tablet 25 mg PO QAM Qty: 90 RF: 3 (DME) blood-glucose meter [Advanced Glucose Meter] Misc See Rx Instructions .ROUTE .MEDSUPPLY Qty: 1 RF: 0 (DME) Advanced Gluc Meter Test Strip Strip See Rx Instructions .ROUTE .MEDSUPPLY Qty: 100 RF: 4 dulaglutide 3 mg/0.5 mL pen injector 3 mg subcut QWEEK Qty: 2 RF: 4 imodium A-D 5 tab PO DAILY RF: 0 (DME) lancets [OneTouch Delica Lancets] 33 gauge misc See Dose Instructions .ROUTE DAILY Qty: 100 RF: 4 amlodipine 5 mg tablet 5 mg PO DAILY Qty: 90 RF: 3 lisinopril 40 mg tablet 40 mg PO QAM Qty: 90 RF: 4 simvastatin 20 mg tablet 20 mg PO DAILY Qty: 90 RF: 4 gabapentin 600 mg tablet 1,200 mg PO HS Qty: 180 RF: 0 Discharge Instructions Instructions: Cellulitis (ED) Additional Instructions: Doxycycline as directed. Rest, elevate, warm soaks and/or compresses every 2 hours for 20 minutes. Please watch for new or worsening symptoms and return to the ER for any concerns. I have placed you on the orthopedic list, I recommend reaching out to their office in the next 24 hours to discuss prompt outpatient reevaluation of your finger cellulitis in the next 2-3 days. Referrals: Jace Winters MD [ [facility] STAFF PHYSICIAN] - Medical Decision Making 56-year-old male, [id number], presents for left finger infection worsening over the past 2 weeks. Patient has what appears to be localized cellulitis without any pointing abscess or fluctuance. There is no drainage. Patient states that he had a similar infection in the past that did not require an I&D and responded well to antibiotics. Clinically he appears well, nontoxic, afebrile, no lymphangitic streaking. Discussed options, plan is to treat with oral doxycycline, will give first dose now. I do not see a clear indication to pursue an I&D at this time. Given this is his dominant hand and on a finger that was partially amputated, I will refer to orthopedics in case he is not responding well to oral therapy. Strict discharge and return precautions were provided. Patient comfortable with this plan and has no additional questions or concerns. This documentation was generated using Ampereation system, please disregard any oddities of phrase or misspellings. Medical Records Medical records reviewed: Yes I reviewed the patient's medical records. HPI General Mode of arrival: ambulatory . Date/Time Provider Initiated Documentation: 07/31/21 07:56 . Limitations to Documentation: no limitations . Information obtained by: patient . HPI Narrative: This is a 56-year-old gentleman, left-hand dominant, past medical history of diabetes, hypertension, left hand index finger partial amputation approximately 20 years ago, presenting to the ER for evaluation of a left index finger infection. Patient noticed some redness and swelling over the past couple of weeks which is getting slightly worse. He denies any fevers, joint pain, rash elsewhere on his body, numbness, tingling, weakness, drainage from the site. Reports at rest there is really no pain with direct palpation he has moderate discomfort. He is unaware of any obvious injury but does state that approximately 2 weeks ago he cut the nail on that finger. Reports having a similar infection 1 time before, did not require any incision and drainage, and simply finished a course of antibiotics. Related Data Home Medications Medication Instructions Recorded Confirmed Imodium A-D 5 tab PO DAILY 11/16/14 07/31/21 lancets 33 gauge #100 each 09/25/18 05/25/21 acetaminophen 500 mg capsule 500 mg PO Q4H PRN 02/18/19 07/31/21 ibuprofen 200 mg capsule 600 mg PO Q6H PRN cap 02/18/19 07/31/21 empagliflozin 25 mg tablet 25 mg PO QAM #90 tab 09/12/20 07/31/21 amlodipine 5 mg tablet 5 mg PO DAILY #90 tab 09/21/20 07/31/21 lisinopril 40 mg tablet 40 mg PO QAM #90 tab 10/19/20 07/31/21 blood sugar diagnostic #100 ea 12/15/20 05/25/21 blood-glucose meter #1 ea 12/15/20 05/25/21 simvastatin 20 mg tablet 20 mg PO DAILY #90 tab 12/15/20 07/31/21 dulaglutide 3 mg/0.5 mL 3 mg SUBCUT QWEEK #2 ml 05/25/21 07/31/21 subcutaneous pen injector gabapentin 600 mg tablet 1,200 mg PO HS #180 tab 05/29/21 07/31/21 doxycycline hyclate 100 mg PO BID #20 cap 07/31/21 Previous Rx's Medication Instructions Recorded lancets 33 gauge #100 each 09/25/18 empagliflozin 25 mg tablet 25 mg PO QAM #90 tab 09/12/20 amlodipine 5 mg tablet 5 mg PO DAILY #90 tab 09/21/20 lisinopril 40 mg tablet 40 mg PO QAM #90 tab 10/19/20 blood sugar diagnostic #100 ea 12/15/20 blood-glucose meter #1 ea 12/15/20 simvastatin 20 mg tablet 20 mg PO DAILY #90 tab 12/15/20 dulaglutide 3 mg/0.5 mL 3 mg SUBCUT QWEEK #2 ml 05/25/21 subcutaneous pen injector gabapentin 600 mg tablet 1,200 mg PO HS #180 tab 05/29/21 doxycycline hyclate 100 mg PO BID #20 cap 07/31/21 Allergies Allergy/AdvReac Type Severity Reaction Status Date / Time Penicillins Allergy Mild SKIN RASH Verified 07/31/21 07:55 General Stated Complaint: GenMedical SRINIVAS: 4 Review of Systems Constitutional Constitutional: Denies fever(s) and Denies weakness Musculoskeletal Musculoskeletal: Denies arthralgias, Denies numbness and Denies tingling Integumentary/Breasts Skin/Breast: Reports erythema Neurologic Neurologic: Denies numbness, Denies tingling and Denies weakness PFSH All Active Problems Cellulitis of finger of left hand (Acute) Skin lesions (Acute) Spondylolisthesis of lumbar region (Chronic 11/16/14) Premature atrial contractions (Chronic 05/17/15) Obstructive sleep apnea syndrome (Chronic) Memory difficulty (Chronic 08/04/14) Essential hypertension (Chronic 06/01/13) Diabetic peripheral neuropathy associated with type 2 diabetes mellitus (Chronic 10/15/14) Diabetes mellitus (Chronic 10/31/12) Bursitis of left shoulder (Chronic 04/16/17) Medical History Colitis Diabetes HTN (hypertension) Hyperlipemia Kidney stones Surgical History Appendectomy History of appendectomy Repair of inguinal hernia Status post inguinal hernia repair Family History Mother , AGE 78 Diabetes Neoplasm Father , AGE 92 Diabetes Sister No problems noted. Brother No problems noted. Brother No problems noted. Son No problems noted. Daughter No problems noted. Social History Smoking/Tobacco Use Status: Never Second Hand Exposure: Yes Smoking risk assessment performed?: Yes Alcohol Intake: current Alcohol Intake frequency: a few times a week Alcohol type: beer Drug use: Never Substance use type: does not use Caregiver/Support person: No Household members: spouse and children Communication Needs: None Do you need help understanding health information?: Never Pets and animals: No Sexually active: No Do you think of yourself as: straight/heterosexual Current gender identity: male What is your relationship status?: How often do you talk on the phone with friends or family?: never How often do you get together with friends or relatives?: once per week How often do you attend catholic or jainism services?: 4 or more times per year Do you belong to any clubs or organized social groups?: no Panel score (0-1 are the most socially isolated patients): 2 What type of physical activity do you participate in: none Duration: 15-30 minutes/day Frequency: daily Mally/Hinduism: Moravian Agree to transfusion: No Seatbelt use: always Helmet use: Yes Helmet use: always Drive intox or ride w/intox hire car driver: No Do you feel safe at home: Yes Do you feel safe in your relationship?: Yes Exam Const General: cooperative, healthy appearing, comfortable and no acute distress Orientation: alert and awake [facility] Head: normal to inspection, normocephalic and atraumatic Eyes Conjunctivae: conjunctivae normal Neck Neck: normal visual inspection, trachea midline and supple Resp Effort & Inspection: normal respiratory effort and able to speak in complete sentences Cardio Rate: regular rate Rhythm: regular rhythm Skin General skin exam: erythema Neuro General: patient alert, patient awake, moves all extremities and no focal motor deficits Cognition: normal cognition Speech: speech normal Gait: normal gait Sensory Exam: no sensory deficits noted Extrem Other: Left index finger distal to the PIP joint status post partial amputation. Skin is intact. Along the flexor aspect there is mild erythema, warmth, swelling without drainage or fluctuance. Neuro, vascular, tendon intact. There is no lymphangitic streaking. Normal radial pulse and capillary refill throughout. Psych Appearance: grossly normal Mental Status: mental status grossly normal Course Vital Signs Vital signs: Vital Signs Temperature 36.7 C 07/31/21 07:38 Pulse 89 07/31/21 07:38 Respiratory Rate 14 07/31/21 07:38 Blood Pressure 128/74 07/31/21 07:38 Temperature 36.7 C 07/31/21 07:38 Temperature Source Temporal Artery Scan 07/31/21 07:38 Pulse 89 07/31/21 07:38 Respiratory Rate 14 07/31/21 07:38 Respiratory Effort Non-Labored 07/31/21 07:49 Respiratory Depth Normal 07/31/21 07:49 Respiratory Pattern Normal 07/31/21 07:49 Blood Pressure 128/74 07/31/21 07:38 Blood Pressure Position Sitting 07/31/21 07:38 Oxygen Delivery Method Nasal Cannula 07/31/21 07:38 Pain Level 0 07/31/21 07:38
[2021-07-31] MEDS: Doxycycline Hyclate 100 MG CAP PO (08:49)
== END 2021-07-31 08:57 | disposition home or self-care (01) ==
PROVIDERS: Emergency Provider Physician Assistant; PCP Nurse Practitioner Family
DX: L03.012 Cellulitis of left finger (principal); Z89.022 Acquired absence of left finger(s)
CPT/HCPCS: 99283

== ENCOUNTER 2021-08-30 16:44 | Outpatient (REF) | payer MEDICAID, SELFPAY | END 2021-08-30 16:45 | disposition home or self-care (01) | LOC: LBN 16:44 | PROVIDERS: PCP Nurse Practitioner Family; Visit Provider Family Medicine | DX: L02.512 Cutaneous abscess of left hand (principal) | CPT/HCPCS: 87070; 87205 ==

== ENCOUNTER 2021-09-18 09:42 | Outpatient (CLI) | payer MEDICAID, SELFPAY ==
--- NOTE | 2021-09-18 08:15 | DI.RAD_ITS ---
Exam(s) XR FINGER LT INDEX EXAM: XR FINGER LT INDEX CLINICAL HISTORY: pain in finger - multiple infections. TECHNIQUE: 2D digital imaging was performed. Three views. COMPARISON: None. FINDINGS: There is soft tissue swelling around the region of the distal phalanx. No foreign body is identified . There is chronic appearing deformity of the distal aspect of the middle phalanx which has been par tially amputated. There has been amputation of the distal phalanx. IMPRESSION: Soft tissue swelling. No foreign body, gas collection or radiographic evidence of osteomyelitis.. DATA REPOSITORY: RADIATION DOSE DELIVERED:
== END 2021-09-18 09:43 | disposition home or self-care (01) ==
LOC: DIORS 09:42
PROVIDERS: PCP Nurse Practitioner Family; Referring Provider Nurse Practitioner Family; Visit Provider Physician Assistant Surgical
DX: M79.645 Pain in left finger(s); M79.89 Other specified soft tissue disorders; L02.512 Cutaneous abscess of left hand; Z89.022 Acquired absence of left finger(s)
CPT/HCPCS: 73140

== ENCOUNTER 2022-03-30 01:21 | Outpatient (CLI) | payer MEDICAID, SELFPAY ==
[2022-03-30 12:25] LABS: CREATININE 0.9 mg/dL (0.70-1.30); Potassium 4.1 mmol/L (3.5-5.1)
== END 2022-03-30 01:22 | disposition home or self-care (01) ==
LOC: LOS 01:21
PROVIDERS: PCP Nurse Practitioner Family; Visit Provider Nurse Practitioner Family
DX: I10 Essential (primary) hypertension (principal)
CPT/HCPCS: 36415; 82565; 84132

== ENCOUNTER 2022-10-25 01:54 | Outpatient (CLI) | payer MEDICAID, SELFPAY ==
[2022-10-25 12:22] LABS: CREATININE 0.9 mg/dL (0.70-1.30); Calculated LDL 134 mg/dL (<100); Cholesterol 199 mg/dL (<200); Estimated GFR 98.38 (mL/min/1.73m2); HDL Cholesterol 49 mg/dL (40-60); Potassium 4.3 mmol/L (3.5-5.1); Triglyceride 83 mg/dL (<150)
[2022-10-25 12:30] LABS: COMMENT (LAB VIEW ONLY) 83.76 mg/dL; Microalb ug/mg Crea 52.7 ug/mg Cr
[2022-10-25 12:32] LABS: Hemoglobin A1C 6.1 % (<5.7)
== END 2022-10-25 01:55 | disposition home or self-care (01) ==
LOC: LOS 01:54
PROVIDERS: PCP Nurse Practitioner Family; Visit Provider Nurse Practitioner Family
DX: I10 Essential (primary) hypertension (principal); E78.5 Hyperlipidemia, unspecified; E11.9 Type 2 diabetes mellitus without complications
CPT/HCPCS: 36415; 80061; 82043; 82565; 82570; 83036; 84132

== ENCOUNTER 2023-04-11 16:28 | Outpatient (CLI) | payer MEDICAID, SELFPAY ==
[2023-04-11 14:03] LABS: Abs Immature Grans 0.03 10^3/uL (0.0-0.06); Absolute Basophil Count 0.03 10^3/uL (0.0-0.2); Absolute Eosinophil Count 0.23 10^3/uL (0.0-0.7); Absolute Lymphocyte Count 0.84 10^3/uL (1.2-3.4); Absolute Monocyte Count 0.88 10^3/uL (0.1-0.8); Absolute Neutrophil Count 6.14 10^3/uL (1.2-6.7); Basophils % 0.4; Eosinophils % 2.8; HCT 49.3 % (40.0-50.0); HGB 16.3 g/dL (13.5-17.5); Immature Grans % 0.4; Lymphocytes % 10.3; MCH 29.5 pg (27.0-33.0); MCHC 33.1 % (32.0-36.0); MCV 89 fL (80-95); MPV 9.9 fL (8.0-11.0); Monocytes % 10.8; Neutrophils % 75.3; Platelet Count 196 10^3/uL (130-400); RBC 5.52 10^6/uL (4.36-5.78); RDW 13.7 % (11.8-14.1); RDW-SD 45.1 fL; WBC 8.15 10^3/uL (4.4-10.8)
[2023-04-11 15:22] LABS: CREATININE 0.7 mg/dL (0.70-1.30); Calculated LDL 94 mg/dL (<100); Cholesterol 173 mg/dL (<200); Estimated GFR 105.49 (mL/min/1.73m2); Ferritin 185 ng/mL (26-388); HDL Cholesterol 41 mg/dL (40-60); Potassium 4.3 mmol/L (3.5-5.1); TSH (W/Ref FT4) 0.76 uIU/mL (0.36-3.74); Triglyceride 193 mg/dL (<150)
[2023-04-11 15:55] LABS: Iron 28 ug/dL (65-175); Total Iron Binding Capacity 308 ug/dL (250-450)
[2023-04-12 09:00] LABS: Transferrin 245 mg/dL (201-352)
== END 2023-04-11 16:29 | disposition home or self-care (01) ==
LOC: LBO 16:28
PROVIDERS: PCP Nurse Practitioner Family; Visit Provider Nurse Practitioner Family
DX: R53.83 Other fatigue (principal); E78.5 Hyperlipidemia, unspecified; I10 Essential (primary) hypertension
CPT/HCPCS: 36415; 80061; 82565; 82728; 83540; 83550; 84132; 84443; 84466; 85025

== ENCOUNTER → 2023-04-15 02:57 | Outpatient (CLI) | payer MEDICAID, SELFPAY ==
--- NOTE | 2023-04-15 07:15 | DI.US_ITS ---
Exam(s) US SOFT TISSUE HEAD OR NECK EXAM: US SOFT TISSUE HEAD OR NECK CLINICAL HISTORY: Mass upper back/base of neck. TECHNIQUE: Ultrasound was performed over the area of concern on the posterior base of the neck. COMPARISON: No exams were available for comparison FINDINGS: This stone study reveals no evidence of solid or significant cystic lesions in the sub skin and subcu taneous tissues. IMPRESSION: No focal ultrasound findings DATA REPOSITORY:
== END ==
PROVIDERS: PCP Nurse Practitioner Family; Visit Provider Nurse Practitioner Family
DX: I10 Essential (primary) hypertension (principal)
CPT/HCPCS: 76536

== ENCOUNTER 2023-04-15 10:12 | Emergency (ER) | payer MEDICAID, SELFPAY ==
[2023-04-15 10:22] VITALS: BP 130/88; PULSE 78; RESP 16; TEMP 36.6; O2SAT 98
--- NOTE | 2023-04-15 12:45 | DI.CT_ITS ---
Exam(s) CT HEAD WO EXAM: CT HEAD WO CLINICAL HISTORY: trauma fr, axial load, pain posterior left skull. TECHNIQUE: Imaging Protocol: Axial computed tomography images with coronal and sagittal reformatted images were created and reviewed COMPARISON: CR XR CHEST 2V PA LATERAL from 02/14/2019 FINDINGS: There are no skull fractures. There is no fluid in the visualized paranasal sinuses. There are abnormally enlarged symmetrical extra-axial CSF spaces over both frontal lobes which are pr obably bilateral hygromas versus impresses bifrontal atrophy. The CSF spaces measure approximately 1 .3 cm bilaterally. There is no evidence of acute intracranial hemorrhage, mass effect, or shift of midline structures. Ventricles are not enlarged or shifted. Tiny hypodensity in the left cerebellar hemisphere is probab ly a small lacune. IMPRESSION: Bilateral symmetrical frontal hygromas versus frontal atrophy. In no evidence of acute intracranial hemorrhage. RADIATION DOSE DELIVERED: Total DLP DATA REPOSITORY: All CT scans at this facility are submitted to the National Radiology Data Registry (NRDR) Dose Index Registry (DIR) with the [employer] (A[employer]). RADIATION OPTIMIZATION: All CT scans at this facility use at least one of these dose optimization te chniques: automated exposure control; mA and/or kV adjustment per patient size (includes targeted exa ms where dose is matched to clinical indication); or iterative reconstruction.
--- NOTE | 2023-04-15 13:10 | W.ED.GENAD ---
Discharge Plan Disposition Patient Disposition: Home Condition: Stable Discharge Details Clinical Impression: Brain concussion, Hygroma Primary Care Provider: Toy Kelly ED Provider: Isaias Sales Home Meds and New Rx's Prescriptions: New aspirin 81 mg capsule 81 mg PO DAILY Qty: 30 0RF Continued ibuprofen 200 mg capsule 600 mg PO Q6H PRN acetaminophen 500 mg capsule 500 mg PO Q4H PRN gabapentin 600 mg tablet 1,200 mg PO HS Qty: 180 3RF metronidazole 1 % cream 1 applic topical DAILY Qty: 60 2RF (DME) blood-glucose meter [Advanced Glucose Meter] Misc See Rx Instructions .ROUTE .MEDSUPPLY Qty: 1 0RF Rx Instructions: As directed (DME) Advanced Gluc Meter Test Strip Strip See Rx Instructions .ROUTE .MEDSUPPLY Qty: 100 4RF Rx Instructions: Twice daily (DME) lancets [OneTouch Delica Lancets] 33 gauge misc See Dose Instructions .ROUTE DAILY Qty: 100 4RF Dose Instruction: One each daily Rx Instructions: One each daily lisinopril 40 mg tablet 40 mg PO QAM Qty: 90 12RF Jardiance 25 mg tablet 25 mg PO QAM Qty: 90 3RF dulaglutide 3 mg/0.5 mL pen injector 3 mg subcut QWEEK Qty: 2 5RF Discharge Instructions Instructions: Concussion (ED) Additional Instructions: Please start aspirin daily. Please contact your primary care physician to arrange follow-up. Patient will discuss the results of your imaging with your primary care physician. Return to the ER immediately for any worsening or new concerning symptoms. Referrals: Toy Kelly, FERN PICKER [Primary Care Provider] - Discharge Data Discharge Date/Time-TO BE ENTERED AT DEPARTURE: 04/15/23 13:38 Medical Decision Making 1311 --58-year-old male with history of diabetes, hypertension, hyperlipidemia, here 3 days status post head trauma, with focal headache left occiput and abrasion to superior head. Considered acute life-threatening intracranial traumatic hemorrhage versus skull fracture. CT of the head was interpreted by radiology: No acute intracranial hemorrhage or skull fracture is present. Patient does have bilateral symmetrical frontal hygromas versus frontal atrophy. There is also a potential left cerebellar small lacunae. Suspect mild concussion. Results were discussed with the patient. I recommended he follow-up with his primary care physician. Usual customary discharge instructions were reviewed. Imaging Data Radiologic Study: Attestation: I personally reviewed and interpreted this imaging study as follows: Imaging: CT Scan Radiologist's impression: FINDINGS: There are no skull fractures. There is no fluid in the visualized paranasal sinuses. There are abnormally enlarged symmetrical extra-axial CSF spaces over both frontal lobes which are probably bilateral hygromas versus impresses bifrontal atrophy. The CSF spaces measure approximately 1.3 cm bilaterally. There is no evidence of acute intracranial hemorrhage, mass effect, or shift of midline structures. Ventricles are not enlarged or shifted. Tiny hypodensity in the left cerebellar hemisphere is probably a small lacune. IMPRESSION: Bilateral symmetrical frontal hygromas versus frontal atrophy. In no evidence of acute intracranial hemorrhage. HPI General Mode of arrival: ambulatory. Date/Time Provider Initiated Documentation: 04/15/23 11:13. Limitations to Documentation: no limitations. Information obtained by: patient. HPI Narrative: 58-year-old male with history of diabetes, hypertension, hyperlipidemia, here 3 days status post head trauma, with focal headache left occiput and abrasion to superior head. Patient notes he stood up and impacted the top of his head on a wooden board. This happened twice. He felt a popping sensation in his scalp on the second traumatic event. He is concerned given persistent headache. No neurodeficits. He has no associated visual change. Related Data Home Medications Medication Instructions Recorded Confirmed lancets 33 gauge ([employer]Touch Delgutierrez #100 ea 09/25/18 04/15/23 Lancets) acetaminophen 500 mg capsule 500 mg PO Q4H PRN 02/18/19 04/15/23 ibuprofen 200 mg capsule 600 mg PO Q6H PRN 02/18/19 04/15/23 blood sugar diagnostic (Advanced #100 ea 12/15/20 04/15/23 Glucose Meter Test Strips) blood-glucose meter (Advanced #1 ea 12/15/20 04/15/23 Glucose Meter) lisinopril 40 mg tablet 40 mg PO QAM #90 tabs 04/02/22 04/15/23 empagliflozin 25 mg tablet 25 mg PO QAM #90 tabs 07/19/22 04/15/23 (Jardiance) dulaglutide 3 mg/0.5 mL 3 mg (0.5 mL) subcut QWEEK #2 mL 11/08/22 04/15/23 subcutaneous pen injector gabapentin 600 mg tablet 1,200 mg (2 x 600 mg) PO HS #180 04/11/23 04/15/23 tabs metronidazole 1 % topical cream 1 applic topical DAILY #60 grams 04/11/23 04/15/23 aspirin 81 mg capsule 81 mg PO DAILY #30 caps 04/15/23 Previous Rx's Medication Instructions Recorded lancets 33 gauge (OneTouch Delica #100 ea 09/25/18 Lancets) blood sugar diagnostic (Advanced #100 ea 12/15/20 Glucose Meter Test Strips) blood-glucose meter (Advanced #1 ea 12/15/20 Glucose Meter) lisinopril 40 mg tablet 40 mg PO QAM #90 tabs 04/02/22 empagliflozin 25 mg tablet 25 mg PO QAM #90 tabs 07/19/22 (Jardiance) dulaglutide 3 mg/0.5 mL 3 mg (0.5 mL) subcut QWEEK #2 mL 11/08/22 subcutaneous pen injector gabapentin 600 mg tablet 1,200 mg (2 x 600 mg) PO HS #180 04/11/23 tabs metronidazole 1 % topical cream 1 applic topical DAILY #60 grams 04/11/23 aspirin 81 mg capsule 81 mg PO DAILY #30 caps 04/15/23 Allergies Allergy/AdvReac Type Severity Reaction Status Date / Time Penicillins Allergy Mild SKIN RASH Verified 04/15/23 10:26 General Stated Complaint: HeadInjury SRINIVAS: 4 PFSH All Active Problems Hygroma (Acute) Brain concussion (Acute) Local superficial swelling, mass or lump (Acute) Fatigue (Acute) Forgetfulness (Acute) Hyperlipemia (Acute) Skin lesions (Acute) Face Spondylolisthesis of lumbar region (Chronic 11/16/14) Premature atrial contractions (Chronic 05/17/15) Obstructive sleep apnea syndrome (Chronic) sleeps in recliner Essential hypertension (Chronic 06/01/13) Diabetic peripheral neuropathy associated with type 2 diabetes mellitus (Chronic 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 Brother No problems noted. Brother No problems noted. Son No problems noted. Daughter No problems noted. 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 Pets and animals: Yes Pets and animals: cat(s) Sexually active: No Do you think of yourself as: straight/heterosexual Current gender identity: male What is your relationship status?: How often do you talk on the phone with friends or family?: twice per week How often do you get together with friends or relatives?: never How often do you attend mormon or episcopal services?: decline to answer Do you belong to any clubs or organized social groups?: no Panel score (0-1 are the most socially isolated patients): 1 NHANES result reviewed/action taken: No What type of physical activity do you participate in: none Duration: 15-30 minutes/day Frequency: daily Mally/Confucianist: Catholic Agree to transfusion: No Seatbelt use: always Drive intox or ride w/intox 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 Working smoke detector in home: Yes Carbon monox detector in home: Yes Firearms in home: Yes Firearms unloaded and locked: Yes Do you feel safe at home: Yes Do you feel safe in your relationship?: Yes Would you like helpful sources: No Exam Const General: cooperative and no acute distress HENMT Head: abrasion (On top of skull), no Shearer's sign, no hematomas, no raccoon eyes and scalp tenderness Mouth: moist mucous membranes Eyes EOM: EOM intact bilaterally Neck Neck: full ROM, no midline deformity and nontender Resp Auscultation: clear to auscultation bilaterally, no rales, no rhonchi and no wheezes Cardio Rate: regular rate and not tachycardic Rhythm: regular rhythm Skin Trauma: abrasion (parietal scalp) Neuro General: patient alert, patient awake, patient oriented x3 and tone normal Cranial Nerves: PERRL Cognition: normal cognition Speech: speech normal Gait: normal gait Motor: muscle tone normal throughout Course Vital Signs Vital signs: Vital Signs Temperature 36.6 C 04/15/23 10:22 Pulse 78 04/15/23 10:22 Respiratory Rate 16 04/15/23 10:22 Blood Pressure 130/88 04/15/23 10:22 Pulse Oximetry 98 04/15/23 10:22 Temperature 36.6 C 04/15/23 10:22 Temperature Source Temporal Artery Scan 04/15/23 10:22 Pulse 78 04/15/23 10:22 Respiratory Rate 16 04/15/23 10:22 Respiratory Effort Normal 04/15/23 10:30 Respiratory Depth Normal 04/15/23 10:30 Respiratory Pattern Normal 04/15/23 10:30 Blood Pressure 130/88 04/15/23 10:22 Blood Pressure Position Sitting 04/15/23 10:22 Pulse Oximetry 98 04/15/23 10:22 Oxygen Delivery Method Room Air 04/15/23 10:22 Oxygen Flow Rate 0 04/15/23 10:22 Pain Level 1 04/15/23 10:30 PAWSS Have you Been Recently Intoxicated or Drunk Within the Last 30 days?: No Have you Ever Experienced Previous Episodes of Alcohol Withdrawal?: No Have you ever Experienced Withdrawal Seizures?: No Have you ever Experienced Delirium Tremens(DT)s?: No Have you ever undergone Alcohol Rehabilitation Treatment (i.e, inpt ot outpatient treatment programs)?: No Have you ever Experienced Blackouts?: No Have you ever Combined Alcohol with other Downers within the last 90 days?: No Have you ever Combined Alcohol with any other Substance of Abuse during the last 90 days?: No Result: 0
== END 2023-04-15 13:38 | disposition home or self-care (01) ==
PROVIDERS: Emergency Provider Student in an Organized Health Care Education/Training Program; PCP Nurse Practitioner Family
DX: S06.0X0A Concussion without loss of consciousness, initial encounter (principal); R90.89 Other abnormal findings on diagnostic imaging of central nervous system; E11.40 Type 2 diabetes mellitus with diabetic neuropathy, unspecified; I10 Essential (primary) hypertension; E78.5 Hyperlipidemia, unspecified; Z79.82 Long term (current) use of aspirin; Z79.84 Long term (current) use of oral hypoglycemic drugs
CPT/HCPCS: 99284; 70450

== ENCOUNTER 2023-05-08 09:44 | Emergency (ER) | payer MEDICAID, SELFPAY ==
[2023-05-08] VITALS (7 sets, daily range): BP systolic 137–162; BP diastolic 71–84; PULSE 89–107; RESP 18–22; TEMP 36.7; O2SAT 95–98
--- NOTE | 2023-05-08 10:41 | ED.GENADUL_ITS ---
Discharge Plan Disposition Patient Disposition: Transfer-Acute Inpatient Care Specific Acute Inpt Facility: [facility] Condition: Serious Discharge Details Chief Complaint: Headache Clinical Impression: Subdural bleeding Primary Care Provider: Toy Kelly ED Provider: Terese Shin Meds and New Rx's Prescriptions: No Action ibuprofen 200 mg capsule 600 mg PO Q6H PRN acetaminophen 500 mg capsule 500 mg PO Q4H PRN metronidazole 1 % cream 1 applic topical DAILY Qty: 60 2RF (DME) blood-glucose meter [Advanced Glucose Meter] Misc See Rx Instructions .ROUTE .MEDSUPPLY Qty: 1 0RF Rx Instructions: As directed (DME) Advanced Gluc Meter Test Strip Strip See Rx Instructions .ROUTE .MEDSUPPLY Qty: 100 4RF Rx Instructions: Twice daily (DME) lancets [OneTouch Delica Lancets] 33 gauge misc See Dose Instructions .ROUTE DAILY Qty: 100 4RF Dose Instruction: One each daily Rx Instructions: One each daily lisinopril 40 mg tablet 40 mg PO QAM Qty: 90 12RF Jardiance 25 mg tablet 25 mg PO QAM Qty: 90 3RF gabapentin 600 mg tablet 1,200 mg PO HS Qty: 180 3RF dulaglutide 3 mg/0.5 mL pen injector 3 mg subcut QWEEK Qty: 2 5RF aspirin 81 mg capsule 81 mg PO DAILY Qty: 30 0RF Medical Decision Making Patient is a pleasant 58-year-old male presenting today with continued pain status post concussion. Patient was seen here about 3 weeks ago after the initial injury. Imaging at that time showed a hygroma but no other acute abnor mality. He states that the pain was persistent striking the posterior aspect of the head. Of note, patient has had several concussions in the past. He states that headache is been persistent as has his vertigo. Patient reports he has chronic daily vertigo at baseline and has for the past 20 years. However, over the past 3 days, he reports that he has been having and all driven into the posterior aspect of his skull causing pain to radiate upwards and left lateral. It can wrap around towards the right side. This is worse when he is going from sitting to standing position or rotating his head, particular to the left. States when he holds his breath he can hear his blood flow and to have a throbbing sensation. Feels that he has been slower to respond, difficulty with short-term memory. Denies any difficulty with ambulation or weakness. No sensory deficits. On exam, patient appears nontoxic. No evidence of basilar skull fracture. No recurrent trauma. No midline neck tenderness or pain along the trapezius bilaterally. His neuro exam is intact with no focal deficits. Not scoring on the NIH score or with a posterior stroke. With the increase in his discomfort, will obtain imaging. Given his throbbing sounds and sensations having, also considered vascular issue such as potentially dissection and will obtain a CTA as well. Is given contrast, will obtain baseline labs. Did consider more of a chronic bleed but found this less likely given imaging after his injury 3 weeks ago. Reviewed imaging, concerned for acute on chronic subdural. will speak with [facility] and radiologist. Patient on monitor, BP 147/71. Discussed with [facility] patient. Asked again about more acute trauma, he states that he may have gently bumped his head but nothing signficant. This BUSTOS is the same pain as what was present 3 weeks ago but increased 3 days ago, not specifically associated with trauma. [facility] is at capacity but will still consult with neurosurgery. Will call [facility]. Called radiologist who notes acute subdural on the left which has occurred since injury 3 weeks ago. He advised it likely started 3 days ago. Consulted with Dr. Nathan who reviewed the images. He notes chronic and acute changes with mild shift. He recommends that patient BP <160 systolically, monitor for seizures, can give 1g Keppra. Advised 500BID x 7 days. Hold the ASA or other anticoagulants. Advised he may need platelet transfusion but will let us know. Repeat head CT in 6hrs from initially. He will call back after discussion with attending. [facility] called back, they advised they are able to take the patient. Patient will be an ED to ED transfer with Dr. Rodney as the accepting. Patient received 1 g of Keppra. We will hold on the platelet transfusion after discussion with the patient. While he does report that he took all of his medications this morning, he did not take the aspirin and they had recommended this assuming that he had taken his aspirin this morning. Discussed transfer with the patient who is in agreement. I also spoke with his , Angelica at [phone] and she is in agreement with transfer. SBP at time of transfer 145. HPI General Date/Time Provider Initiated Documentation: 05/08/23 10:14 . Limitations to Documentation: no limitations . Information obtained by: patient, RN notes reviewed and old records reviewed . History of Present Illness 58 year old M presents to the emergency department with the chief complaint of BUSTOS radiating around his head, particularly when turning head, described as severe, with intensity rated at 8. Quality is described as stabbing (feels like an, all is being stabbed in jenn back of the head), and is localized to the head. Patient reports radiation to (around head). Patient started experiencing this week(s) (injured 3 wks ago, worsened 3 days ago) and it has been constant. Immobilization improves symptom(s), Movement worsens symptoms (turning head, standing up) . Patient notes headaches and malaise; denies chest pain, cough, fever/chills, loss of appetite, nausea/vomiting, shortness of breath, syncope and weakness. Patient did receive the following treatments prior to arrival, none Related Data Home Medications Medication Instructions Recorded Confirmed lancets 33 gauge (OneTouch Delica #100 ea 09/25/18 04/15/23 Lancets) acetaminophen 500 mg capsule 500 mg PO Q4H PRN 02/18/19 05/08/23 ibuprofen 200 mg capsule 600 mg PO Q6H PRN 02/18/19 05/08/23 blood sugar diagnostic (Advanced #100 ea 12/15/20 04/15/23 Glucose Meter Test Strips) blood-glucose meter (Advanced #1 ea 12/15/20 04/15/23 Glucose Meter) lisinopril 40 mg tablet 40 mg PO QAM #90 tabs 04/02/22 05/08/23 empagliflozin 25 mg tablet 25 mg PO QAM #90 tabs 07/19/22 05/08/23 (Jardiance) metronidazole 1 % topical cream 1 applic topical DAILY #60 grams 04/11/23 05/08/23 aspirin 81 mg capsule 81 mg PO DAILY #30 caps 04/15/23 05/08/23 gabapentin 600 mg tablet 1,200 mg (2 x 600 mg) PO HS #180 04/18/23 05/08/23 tabs dulaglutide 3 mg/0.5 mL 3 mg (0.5 mL) subcut QWEEK #2 mL 04/24/23 05/08/23 subcutaneous pen injector Previous Rx's Medication Instructions Recorded lancets 33 gauge (OneTouch Delica #100 ea 09/25/18 Lancets) blood sugar diagnostic (Advanced #100 ea 12/15/20 Glucose Meter Test Strips) blood-glucose meter (Advanced #1 ea 12/15/20 Glucose Meter) lisinopril 40 mg tablet 40 mg PO QAM #90 tabs 04/02/22 empagliflozin 25 mg tablet 25 mg PO QAM #90 tabs 07/19/22 (Jardiance) metronidazole 1 % topical cream 1 applic topical DAILY #60 grams 04/11/23 aspirin 81 mg capsule 81 mg PO DAILY #30 caps 04/15/23 gabapentin 600 mg tablet 1,200 mg (2 x 600 mg) PO HS #180 04/18/23 tabs dulaglutide 3 mg/0.5 mL 3 mg (0.5 mL) subcut QWEEK #2 mL 04/24/23 subcutaneous pen injector Allergies Allergy/AdvReac Type Severity Reaction Status Date / Time Penicillins Allergy Mild SKIN RASH Verified 04/15/23 10:26 General Stated Complaint: Headache SRINIVAS: 3 Review of Systems Constitutional Constitutional: Reports as per HPI, Denies chills, Reports fatigue, Denies fever(s), Denies frequent falls, Reports headache(s) and Denies weakness Eyes Eyes: Reports as per HPI, Denies blurry vision and Denies change in vision ENT Ears, Nose, Mouth, and Throat: Denies vertigo, Reports headache(s) and Denies neck pain Cardiovascular Cardiovascular: Reports as per HPI, Denies chest pain, Denies radiating jaw, neck or arm pain, Denies dyspnea and Denies dyspnea on exertion Respiratory Respiratory: Reports as per HPI, Denies chest congestion, Denies cough, Denies dyspnea and Denies dyspnea on exertion Gastrointestinal Gastrointestinal: Reports as per HPI, Denies abdominal pain, Denies change in bowel habits, Denies nausea and Denies vomiting Genitourinary Genitourinary: Reports system reviewed and no additional complaints, except as documented (denies change in urinary habits) Musculoskeletal Musculoskeletal: Reports as per HPI, Denies back pain, Denies myalgias, Denies muscle cramps, Denies neck pain and Denies numbness Integumentary/Breasts Skin/Breast: Reports as per HPI and Denies rash Neurologic Neurologic: Reports as per HPI, Denies abnormal movements, Denies abnormal speech, Denies vertigo, Denies frequent falls, Reports headache(s), Denies localized weakness, Denies numbness, Denies sensory deficit, Denies weakness and Reports other (feels like short term memory is difficult, feels slow) Endocrine Endocrine: Reports fatigue PFSH All Active Problems (Updated 05/08/23 @ 14:09 by POLINA Gonzalez) Subdural bleeding (Acute) Hygroma (Acute) Brain concussion (Acute) Local superficial swelling, mass or lump (Acute) Fatigue (Acute) Forgetfulness (Acute) Hyperlipemia (Acute) Skin lesions (Acute) Face Spondylolisthesis of lumbar region (Chronic 11/16/14) Premature atrial contractions (Chronic 05/17/15) Obstructive sleep apnea syndrome (Chronic) sleeps in recliner Essential hypertension (Chronic 06/01/13) Diabetic peripheral neuropathy associated with type 2 diabetes mellitus (Chronic 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 Brother No problems noted. Brother No problems noted. Son No problems noted. Daughter No problems noted. 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 Pets and animals: Yes Pets and animals: cat(s) Sexually active: No Do you think of yourself as: straight/heterosexual Current gender identity: male What is your relationship status?: How often do you talk on the phone with friends or family?: twice per week How often do you get together with friends or relatives?: never How often do you attend gnosticist or gnosticist services?: decline to answer Do you belong to any clubs or organized social groups?: no Panel score (0-1 are the most socially isolated patients): 1 NHANES result reviewed/action taken: No What type of physical activity do you participate in: none Duration: 15-30 minutes/day Frequency: daily Mally/Holiness: Episcopal Agree to transfusion: No Seatbelt use: always Drive intox or ride w/intox racing car driver: No Working smoke detector in home: Yes Carbon monox detector in home: Yes Firearms in home: Yes Firearms unloaded and locked: Yes Do you feel safe at home: Yes Do you feel safe in your relationship?: Yes Would you like helpful sources: No Exam Const General: cooperative, healthy appearing, uncomfortable, no acute distress, well developed and well groomed Nutritional Appearance: average body habitus and well nourished Orientation: alert, awake and oriented x3 HENAK Head: normal to inspection, no palpable skull fracture, normocephalic and atraumatic Ears: hearing grossly normal bilaterally, external ears normal and TM's normal bilaterally General nose exam: external nose normal Mouth: oral mucosae normal and moist mucous membranes Throat: posterior oropharynx normal Eyes General: appearance normal, both eyes and all related structures Alignment and Position: alignment normal Periorbital: periorbital findings normal Eyelids: eyelids normal Sclera: sclerae normal Cornea: corneas normal Pupils: PERRL EOM: EOM intact bilaterally Neck Neck: normal visual inspection, full ROM and no lymphadenopathy Resp Effort & Inspection: normal respiratory effort, able to speak in complete sentences and no respiratory distress Auscultation: clear to auscultation bilaterally, no rales, no rhonchi and no w heezes Cardio Rate: regular rate Rhythm: regular rhythm Heart Sounds: S1 normal and S2 normal Back/Spine/Pelvis Cervical Spine: normal cervical lordosis and cervical ROM normal Skin General skin exam: no rashes or lesions noted Neuro General: patient alert, patient awake and patient oriented x3 Cranial Nerves: CN's II-XI intact bilaterally Cognition: normal cognition Speech: speech normal Gait: normal gait Motor: muscle tone normal throughout, strength 5/5 throughout, no pronator drift, no movement abnormalities noted and no fasciculations Sensory Exam: no sensory deficits noted Coordination: [id number] test normal and [id number] test normal Extrem General: normal to inspection and capillary refill normal Psych Appearance: grossly normal and well kempt Mental Status: mental status grossly normal Speech and Movement: speech and movement normal Course Vital Signs Vital signs: Vital Signs Temperature 36.7 C 05/08/23 09:49 Pulse 99 H 05/08/23 09:49 Respiratory Rate 18 05/08/23 09:49 Blood Pressure 162/82 H 05/08/23 09:49 Pulse Oximetry 98 05/08/23 09:49 Temperature 36.7 C 05/08/23 09:49 Pulse 99 H 05/08/23 09:49 Respiratory Rate 18 05/08/23 09:49 Respiratory Effort Normal 05/08/23 09:53 Blood Pressure 162/82 H 05/08/23 09:49 Pulse Oximetry 98 05/08/23 09:49 Oxygen Delivery Method Room Air 05/08/23 09:49 Oxygen Flow Rate 0 05/08/23 09:49
--- NOTE | 2023-05-08 11:00 | DI.CT_ITS ---
Exam(s) CT BRAIN NECK CTA EXAM: CT BRAIN NECK CTA CLINICAL HISTORY: continued BUSTOS, throbbing. TECHNIQUE: Imaging Protocol: Axial CT angiography was performed with multi-slice acquisition and mu lti-planar and/or 3D reconstructions. CONTRAST MATERIAL: Intravenous: Omnipaque 350 Contrast volume:structured data in ml COMPARISON: CT ABD PELVIS WITH CONTRAST from 11/02/2012 MR MRI - BRAIN WO CONTRAST from 07/23/[address] HEAD WO from 04/15/2023 FINDINGS: CT BRAIN: There is a predominately hyperdense acute left convexity subdural hematoma extending over t he left convexity and from the anterior to the posterior aspect of the convexity. There is effacemen t of adjacent sulci but no shift of midline structures. This hemorrhage has occurred in a pre-existi ng exaggerated CSF space-possible hygroma. The thickness of this extra-axial hemorrhage measures up to 1.3 cm. There is no blood within the ventricular system. No blood within the anterior interhemis pheric fissure. Ventricles are not enlarged nor shifted. There are no ring enhancing lesions in the brain. There is no evidence of skull fracture. No fluid in the paranasal sinuses and mastoid air cells. CTA Neck W: Aortic arch anatomy: The aortic arch anatomy is conventional and there is no significant stenosis at the origin of the great vessels off of the aortic arch. No intimal flap evident. Anterior circulation: Both common carotid arteries ascend with normal luminal diameters. At the level the carotid bulbs and proximal internal carotid arteries there is minimal plaque without hemodynamically significant stenosis evident. Posterior circulation: Both vertebral arteries originate in conventional fashion off of the subclavian arteries and there is no obvious stenosis at the origin of the vertebral arteries. The right vertebral artery is dominant. The left vertebral artery is a thin vessel throughout its le ngth. At the skull base the main contributor to the formation of the basilar artery is the dominant right vertebral artery. Left vertebral artery appears to terminate at the level the posterior inferior cerebellar artery. CTA Brain W: Anterior circulation: Both internal carotid arteries are patent in the skull base-carotid canals as well as within the cave rnous sinuses. The supraclinoid aspects of the ICAs are patent. Both A1 segments are patent as are the anterior cer ebral arteries and there is no evidence of aneurysm at the level of the anterior communicating artery . Both middle cerebral arteries are patent with no evidence of significant stenosis nor intraluminal th rombus. There also no aneurysms of these vessels. Posterior circulation: The basilar artery ascends in the midline. Distally it gives off patent bilateral superior cerebella r arteries. Above this level the basilar artery terminates as posterior cerebral arteries. The P1 segments are thin which appears parent developmental basis as there are bilateral posterior co mmunicating arteries on both sides the [id number]. There is no evidence of aneurysm at the tip of the basilar artery nor elsewhere in the [id number] is. IMPRESSION: 1. Acute hyperdense left convexity subdural hematoma measuring up to 1.3 cm thickness and so seated w ith adjacent sulcal effacement but no shift of midline structures nor asymmetry in the size of the ve ntricles. There is no intra-axial hemorrhage. 2. Patent carotid and vertebral arteries in the neck. No significant stenosis nor dissection. Vert ebral artery is dominant and the main contributor to formation of the basilar artery at the skull bas e. The left vertebral artery is a thin vessel throughout its length. No evidence of vertebral arter y dissection. 3. Patent intracranial arteries. No aneurysms evident. Findings discussed with ER physician. RADIATION DOSE DELIVERED: Total DLP DATA REPOSITORY: All CT scans at this facility are submitted to the National Radiology Data Registry (NRDR) Dose Index Registry (DIR) with the [employer] (ACR). RADIATION OPTIMIZATION: All CT scans at this facility use at least one of these dose optimization te chniques: automated exposure control; mA and/or kV adjustment per patient size (includes targeted exa ms where dose is matched to clinical indication); or iterative reconstruction.
[2023-05-08 11:28] LABS: Abs Immature Grans 0.02 10^3/uL (0.0-0.06); Absolute Basophil Count 0.05 10^3/uL (0.0-0.2); Absolute Eosinophil Count 0.41 10^3/uL (0.0-0.7); Absolute Lymphocyte Count 1.94 10^3/uL (1.2-3.4); Absolute Monocyte Count 0.84 10^3/uL (0.1-0.8); Absolute Neutrophil Count 6.45 10^3/uL (1.2-6.7); Basophils % 0.5; Eosinophils % 4.2; HCT 51.2 % (40.0-50.0); HGB 17.1 g/dL (13.5-17.5); Immature Grans % 0.2; MCH 29.8 pg (27.0-33.0); MCHC 33.4 % (32.0-36.0); MCV 89 fL (80-95); MPV 10.7 fL (8.0-11.0); Monocytes % 8.7; Neutrophils % 66.4; Platelet Count 224 10^3/uL (130-400); RBC 5.74 10^6/uL (4.36-5.78); RDW 13.3 % (11.8-14.1); RDW-SD 43.7 fL; WBC 9.71 10^3/uL (4.4-10.8)
[2023-05-08 11:58] LABS: ALT 35 U/L (16-63); AST 21 U/L (15-37); Albumin 4.2 g/dL (3.4-5.0); Alkaline Phosphatase 48 U/L (46-116); Anion Gap 9.1 mmol/L (3-11); BUN 18 mg/dL (7-18); Bilirubin, Total 0.6 mg/dL (0.2-1.0); CO2 27.9 mmol/L (21.0-32.0); CREATININE 0.7 mg/dL (0.70-1.30); Calcium 9.7 mg/dL (8.5-10.1); Chloride 103 mmol/L (98-107); Estimated GFR 105.49 (mL/min/1.73m2); Glucose 110 mg/dL (74-106); Potassium 4.7 mmol/L (3.5-5.1); Sodium 140 mmol/L (136-145); Total Protein 7.5 g/dL (6.4-8.2)
[2023-05-08] MEDS: Normal Saline - Diluent 50 ML VIAL IJ (12:25)
[2023-05-08] MEDS: Omnipaque 350 MG/ML 100 ML BTL IJ (12:26)
[2023-05-08 13:10] LABS: INR 1.1 (0.9-1.1); PTT Activated 25.2 sec (23.6-32.8); Prothrombin Time 10.6 sec (9.1-11.1)
[2023-05-08] MEDS: levETIRAcetam 1,000 MG in Normal Saline 100 ML 400 MG IVPB (13:55)
== END 2023-05-08 14:19 | disposition short-term general hospital (02) ==
PROVIDERS: Emergency Provider Physician Assistant; PCP Nurse Practitioner Family
DX: S06.5X0D Traumatic subdural hemorrhage without loss of consciousness, subsequent encounter (principal); W19.XXXD Unspecified fall, subsequent encounter
CPT/HCPCS: 36415; 70496; 70498; 80053; 82962; 96365; 99285; 85025; 85610; 85730; J1953; J3490

== ENCOUNTER 2023-05-17 20:11 | Emergency (ER) | payer MEDICAID, SELFPAY ==
[2023-05-17] VITALS (25 sets, daily range): BP systolic 122–173; BP diastolic 67–160; PULSE 77–104; RESP 11–23; TEMP 36.6; O2SAT 95–99
--- NOTE | 2023-05-17 20:30 | DI.CT_ITS ---
Exam(s) CT BRAIN NECK CTA EXAM: CT BRAIN NECK CTA CLINICAL HISTORY: recent subdural hematoma, now headache. TECHNIQUE: Imaging Protocol: Axial CT angiography was performed with multi-slice acquisition and mu lti-planar and/or 3D reconstructions. CONTRAST MATERIAL: Intravenous: Omnipaque 350 contrast volume:85 mL COMPARISON: CT CT BRAIN NECK CTA from 05/08/2023 FINDINGS: CT Head W/O and W: Ventricles and Extra axial spaces: There is again seen a left subdural hematoma which has undergone e volution and is largely now isodense to the brain parenchyma. There has been no significant change i n size. There is again seen a face mint of the adjacent sulci and left lateral ventricle. Hemorrhage: None. Cerebral parenchyma: Normal. Midline shift: None. Brainstem/Cerebellum: Normal. Calvarium: Normal. Visualized Paranasal sinuses/Mastoids: Clear. Soft Tissues: Unremarkable. Enhancement: Unremarkable. CTA Neck W: Common Carotid: Right: No dissection, occlusion or significant stenosis. Left: No dissection, occlusion or significant stenosis. External Carotid: Right: No occlusion or significant stenosis. Left: No occlusion or significant stenosis. Internal Carotid: Right: No dissection, occlusion or significant stenosis. Mild atherosclerosis at the origin. Left: No dissection, occlusion or significant stenosis. Vertebral Artery: Right: No dissection, occlusion or significant stenosis. Left: No dissection, occlusion or significant stenosis. Lung Apices: Normal. Bones: Within normal limits for the patient's age. Soft Tissues: Normal. Thyroid gland: Unremarkable. CTA Brain W: Internal Carotid Arteries: Normal. Anterior Cerebral Arteries: Right: No aneurysm, occlusion or significant stenosis. Left: No aneurysm, occlusion or significant stenosis. Middle Cerebral Arteries: Right: No aneurysm, occlusion or significant stenosis. Left: No aneurysm, occlusion or significant stenosis. Posterior Cerebral Arteries: Right: No aneurysm, occlusion or significant stenosis. Left: No aneurysm, occlusion or significant stenosis. Vertebral Arteries: Right: No aneurysm, occlusion or significant stenosis. Left: No aneurysm, occlusion or significant stenosis. Basilar Artery: No aneurysm, occlusion or significant stenosis. IMPRESSION: 1. No large vessel occlusion or significant stenosis on the CT angiography of the head. 2. No significant change in size of the left subdural hematoma which is now largely isodense consiste nt with normal evolution. 3. No occlusion or significant stenosis on the CT angiography of the neck. RADIATION DOSE DELIVERED: Total DLP DATA REPOSITORY: All CT scans at this facility are submitted to the National Radiology Data Registry (NRDR) Dose Index Registry (DIR) with the [employer] (ACR). RADIATION OPTIMIZATION: All CT scans at this facility use at least one of these dose optimization te chniques: automated exposure control; mA and/or kV adjustment per patient size (includes targeted exa ms where dose is matched to clinical indication); or iterative reconstruction.
--- NOTE | 2023-05-17 20:31 | NUR.NOTE ---
Nursing Note: As per triage note The pt states several weeks ago he had head trauma which caused a bleed on the brain and sent to [facility], then last week had a second bleed to the other side of this brain and had surgery and clips placed, pt c/o left sided BUSTOS, states that he also has pain and swelling with discoloration to his right leg from the procedure, the pt had bilateral BP, right arm 173/160, left arm 131/67. pt brought to room 3, made aware of pts arrival. the pt stated, i did not call the doctor because I figured that I can come here and you will transfer me to [facility] Currently no neuro deficits, ambulating well, no speech or visual disturbances.
--- NOTE | 2023-05-17 20:41 | W.ED.GENAD ---
Discharge Plan Disposition Patient Disposition: Home Condition: Improving Discharge Details Chief Complaint: Headache Clinical Impression: Headache Primary Care Provider: Toy Kelly ED Provider: Robert Bello Meds and New Rx's Prescriptions: No Action ibuprofen 200 mg capsule 600 mg PO Q6H PRN acetaminophen 500 mg capsule 500 mg PO Q4H PRN metronidazole 1 % cream 1 applic topical DAILY Qty: 60 2RF Hold Instructions: Pt Stopped/Never Started (DME) blood-glucose meter [Advanced Glucose Meter] Misc See Rx Instructions .ROUTE .MEDSUPPLY Qty: 1 0RF Rx Instructions: As directed (DME) Advanced Gluc Meter Test Strip Strip See Rx Instructions .ROUTE .MEDSUPPLY Qty: 100 4RF Rx Instructions: Twice daily (DME) lancets [OneTouch Delica Lancets] 33 gauge misc See Dose Instructions .ROUTE DAILY Qty: 100 4RF Dose Instruction: One each daily Rx Instructions: One each daily lisinopril 40 mg tablet 40 mg PO QAM Qty: 90 12RF Jardiance 25 mg tablet 25 mg PO QAM Qty: 90 3RF gabapentin 600 mg tablet 1,200 mg PO HS Qty: 180 3RF dulaglutide 3 mg/0.5 mL pen injector 3 mg subcut QWEEK Qty: 2 5RF levetiracetam 500 mg tablet 500 mg PO BID Rx Instructions: [place] [facility] [place]23 aspirin 81 mg capsule 81 mg PO DAILY Qty: 30 0RF Discharge Instructions Instructions: General Headache (ED) Additional Instructions: Please follow-up with your primary care physician and neurosurgical team. Please return to the emergency department for any worsening symptoms Medical Decision Making 58-year-old male presents approximately 1 week post discharge from [facility] after treatment for subdural hematoma found on 05/08, patient endorses headache gradual in onset over the last day or so denies nausea vomiting fevers chills shortness of breath weakness or numbness. Patient is neurologically intact GCS 15 5 out of 5 strength upper and lower extremities, cranial nerves intact, no truncal ataxia, afebrile nontoxic, puncture site right groin with expected ecchymosis no erythema or induration or warmth. Consider residual headache from prior bleed versus rebleed versus less likely acute ischemic CVA lower suspicion for vascular dissection, will obtain stat CTA head neck, analgesia close reassessment 22: 00 patient resting comfortably no acute distress neurologically intact hemodynamically stable. CT CTA head and neck showing resolving subdural. Given improvement of symptoms and imaging patient will be discharged home with home care instructions. Return precautions given. HPI General Date/Time Provider Initiated Documentation: 05/17/23 20:33. HPI Narrative: 58-year-old male recent diagnosis of subdural hematoma 05/08 presents with recurrent headache left occipital and region, patient was recently discharged from [facility] following inpatient stay for initial bleed patient underwent catheter-based procedure. Denies chest pain shortness of breath nausea or vomiting. Does have ecchymosis and slight discomfort at right groin puncture site. Related Data Home Medications Medication Instructions Recorded Confirmed lancets 33 gauge ([employer] #100 ea 09/25/18 05/17/23 Lancets) acetaminophen 500 mg capsule 500 mg PO Q4H PRN 02/18/19 05/17/23 ibuprofen 200 mg capsule 600 mg PO Q6H PRN 02/18/19 05/17/23 blood sugar diagnostic (Advanced #100 ea 12/15/20 05/17/23 Glucose Meter Test Strips) blood-glucose meter (Advanced #1 ea 12/15/20 05/17/23 Glucose Meter) lisinopril 40 mg tablet 40 mg PO QAM #90 tabs 04/02/22 05/17/23 empagliflozin 25 mg tablet 25 mg PO QAM #90 tabs 07/19/22 05/17/23 (Jardiance) metronidazole 1 % topical cream 1 applic topical DAILY #60 grams 04/11/23 05/17/23 aspirin 81 mg capsule 81 mg PO DAILY #30 caps 04/15/23 05/17/23 gabapentin 600 mg tablet 1,200 mg (2 x 600 mg) PO HS #180 04/18/23 05/17/23 tabs dulaglutide 3 mg/0.5 mL 3 mg (0.5 mL) subcut QWEEK #2 mL 04/24/23 05/17/23 subcutaneous pen injector levetiracetam 500 mg tablet 500 mg PO BID 05/15/23 05/17/23 Previous Rx's Medication Instructions Recorded lancets 33 gauge ([employer] #100 ea 09/25/18 Lancets) blood sugar diagnostic (Advanced #100 ea 12/15/20 Glucose Meter Test Strips) blood-glucose meter (Advanced #1 ea 12/15/20 Glucose Meter) lisinopril 40 mg tablet 40 mg PO QAM #90 tabs 04/02/22 empagliflozin 25 mg tablet 25 mg PO QAM #90 tabs 07/19/22 (Jardiance) metronidazole 1 % topical cream 1 applic topical DAILY #60 grams 04/11/23 aspirin 81 mg capsule 81 mg PO DAILY #30 caps 04/15/23 gabapentin 600 mg tablet 1,200 mg (2 x 600 mg) PO HS #180 04/18/23 tabs dulaglutide 3 mg/0.5 mL 3 mg (0.5 mL) subcut QWEEK #2 mL 04/24/23 subcutaneous pen injector Allergies Allergy/AdvReac Type Severity Reaction Status Date / Time Penicillins Allergy Mild SKIN RASH Verified 04/15/23 10:26 General Stated Complaint: Headache SRINIVAS: 2 Review of Systems Narrative: Review of Systems Constitutional: negative Eyes: negative ENT: negative Cardiovascular: negative Respiratory: negative Gastrointestinal: negative : negative Musculoskeletal: negative Skin: negative Neurologic: Headache Psych: negative PFSH All Active Problems (Updated 05/17/23 @ 22:01 by Robert Bello MD) Headache (Acute) Subdural bleeding (Acute) Local superficial swelling, mass or lump (Acute) Fatigue (Acute) Forgetfulness (Acute) Hyperlipemia (Acute) Skin lesions (Acute) Face Spondylolisthesis of lumbar region (Chronic 11/16/14) Premature atrial contractions (Chronic 05/17/15) Obstructive sleep apnea syndrome (Chronic) sleeps in recliner Essential hypertension (Chronic 06/01/13) Diabetic peripheral neuropathy associated with type 2 diabetes mellitus (Chronic 10/15/14) Diabetes mellitus (Chronic 10/31/12) Medical History Colitis Kidney stones Diarrhea (08/19/12) Microscopic colitis first diagnosed 1994 Bursitis of left shoulder (04/16/17) Surgical History History of appendectomy Status post inguinal hernia repair Repair of inguinal hernia Appendectomy Family History Mother , AGE 78 Diabetes Neoplasm Father , AGE 92 Diabetes Sister No problems noted. Brother No problems noted. Brother No problems noted. Son No problems noted. Daughter No problems noted. 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 Pets and animals: Yes Pets and animals: cat(s) Sexually active: No Do you think of yourself as: straight/heterosexual Current gender identity: male What is your relationship status?: How often do you talk on the phone with friends or family?: twice per week How often do you get together with friends or relatives?: never How often do you attend yazdanism or anglican services?: decline to answer Do you belong to any clubs or organized social groups?: no Panel score (0-1 are the most socially isolated patients): 1 NHANES result reviewed/action taken: No What type of physical activity do you participate in: none Duration: 15-30 minutes/day Frequency: daily Mally/Zoroastrian: Roman Catholic Agree to transfusion: No Seatbelt use: always Drive intox or ride w/intox professional driver: No Working smoke detector in home: Yes Carbon monox detector in home: Yes Firearms in home: Yes Firearms unloaded and locked: Yes Do you feel safe at home: Yes Do you feel safe in your relationship?: Yes Would you like helpful sources: No Exam Narrative Exam Narrative: Physical Examination General: alert, awake, cooperative, resting comfortably, no acute distress HEENT: normocephalic, atraumatic; PERRL, EOM intact, conjunctiva normal; no nasal discharge; moist mucous membranes, oral and pharyngeal mucosa normal, tolerating secretions Neck: supple, trachea midline; full ROM Chest: normal to inspection Respiratory: normal respiratory effort, speaking in full sentences, clear to auscultation, no wheezing, rales or rhonchi Cardiac: regular rate, regular rhythm, S1S2 intact, no murmurs rubs or gallops GI: abdomen soft, non-tender, non-distended; no palpable mass or hepatosplenomegaly Skin: Subacute/chronic ecchymosis to right thigh medial aspect, femoral pulse intact no warmth or induration or erythema Neuro: AAOx3, normal speech, moving all extremities; cranial nerves II through XII intact, 5-5 strength upper and lower extremities intact, no truncal ataxia Extremities: See skin Psych: Appropriate mood and affect Course Vital Signs Vital signs: Vital Signs Temperature 36.6 C 05/17/23 20:15 Pulse 77 05/17/23 20:15 Respiratory Rate 20 05/17/23 20:15 Blood Pressure 131/67 05/17/23 20:15 Pulse Oximetry 99 05/17/23 20:15 Temperature 36.6 C 05/17/23 20:15 Temperature Source Tympanic 05/17/23 20:15 Pulse 77 05/17/23 20:15 Respiratory Rate 20 05/17/23 20:15 Respiratory Effort Normal 05/17/23 20:26 Blood Pressure 131/67 05/17/23 20:28 Pulse Oximetry 99 05/17/23 20:15 Oxygen Delivery Method Room Air 05/17/23 20:15 Oxygen Flow Rate 0 05/17/23 20:15
[2023-05-17 20:43] LABS: Abs Immature Grans 0.04 10^3/uL (0.0-0.06); Absolute Basophil Count 0.06 10^3/uL (0.0-0.2); Absolute Eosinophil Count 0.24 10^3/uL (0.0-0.7); Absolute Monocyte Count 1.06 10^3/uL (0.1-0.8); Absolute Neutrophil Count 7.78 10^3/uL (1.2-6.7); Basophils % 0.5; Eosinophils % 2.2; HCT 46.6 % (40.0-50.0); HGB 15.6 g/dL (13.5-17.5); Immature Grans % 0.4; Lymphocytes % 17.4; MCH 30.2 pg (27.0-33.0); MCHC 33.5 % (32.0-36.0); MCV 90 fL (80-95); MPV 10.1 fL (8.0-11.0); Monocytes % 9.5; Platelet Count 262 10^3/uL (130-400); RBC 5.17 10^6/uL (4.36-5.78); RDW 13.5 % (11.8-14.1); RDW-SD 44.9 fL; WBC 11.12 10^3/uL (4.4-10.8)
[2023-05-17 20:44] LABS: Absolute Lymphocyte Count 1.93 10^3/uL (1.2-3.4)
[2023-05-17] MEDS: Normal Saline - Diluent 50 ML VIAL IJ (20:49)
[2023-05-17] MEDS: Omnipaque 350 MG/ML 100 ML BTL IJ (20:50)
[2023-05-17 20:56] LABS: PTT Activated 27.2 sec (23.6-32.8); Prothrombin Time 10.2 sec (9.1-11.1)
[2023-05-17 21:02] LABS: ALT 34 U/L (16-63); AST 17 U/L (15-37); Albumin 3.7 g/dL (3.4-5.0); Alkaline Phosphatase 47 U/L (46-116); Anion Gap 4.9 mmol/L (3-11); BUN 19 mg/dL (7-18); Bilirubin, Total 0.4 mg/dL (0.2-1.0); CO2 29.1 mmol/L (21.0-32.0); CREATININE 0.9 mg/dL (0.70-1.30); Calcium 9.3 mg/dL (8.5-10.1); Chloride 104 mmol/L (98-107); Estimated GFR 97.78 (mL/min/1.73m2); Glucose 132 mg/dL (74-106); Potassium 4.1 mmol/L (3.5-5.1); Sodium 138 mmol/L (136-145); Total Protein 7.4 g/dL (6.4-8.2)
[2023-05-17] MEDS: ACETAMINOPHEN 1,000 MG/100 ML BTL 400 MG IVPB (21:10)
--- NOTE | 2023-05-17 21:36 | DI.VRAD_ITS ---
PROCEDURE INFORMATION: Exam: CTA Head With Contrast, Arteriography Exam date and time: 05/17/2023 8:48 PM Age: 58 years old Clinical indication: Stroke-like symptoms; Headache; Additional info: Recent subdural hematoma x 3 wks ago, now headache TECHNIQUE: Imaging protocol: Computed tomographic angiography of the head with contrast. Exam focused on the arteries. 3D rendering (Not supervised by radiologist): MIP and/or 3D reconstructed images were created by the technologist. Contrast material: OMNI 350; Contrast volume: 100 ml; Contrast route: INTRAVENOUS (IV); COMPARISON: CT BRAIN NECK CTA 05/08/2023 12:24 PM FINDINGS: ANTERIOR CIRCULATION: Right internal carotid artery: Intracranial segment is patent with no significant stenosis. No aneurysm. Right middle cerebral artery: No occlusion or significant stenosis. No aneurysm. Right anterior cerebral artery: No occlusion or significant stenosis. No aneurysm. Left internal carotid artery: Intracranial segment is patent with no significant stenosis. No aneurysm. Left middle cerebral artery: No occlusion or significant stenosis. No aneurysm. Left anterior cerebral artery: No occlusion or significant stenosis. No aneurysm. POSTERIOR CIRCULATION: Right vertebral artery: No occlusion or significant stenosis. No aneurysm. Left vertebral artery: No occlusion or significant stenosis. No aneurysm. Basilar artery: No occlusion or significant stenosis. No aneurysm. Right posterior cerebral artery: No occlusion or significant stenosis. No aneurysm. Left posterior cerebral artery: No occlusion or significant stenosis. No aneurysm. Brain: The left-sided subdural hematoma is not significantly changed in size but is mildly decreased in density, consistent with normal evolution. No midline shift. Bifrontal brain atrophy Cerebral ventricles: No ventriculomegaly. Bones/joints: Unremarkable. No acute fracture. Soft tissues: Unremarkable. IMPRESSION: 1. The left-sided subdural hematoma is not significantly changed in size but is mildly decreased in density, consistent with normal evolution. No midline shift. 2. No acute vascular findings. PROCEDURE INFORMATION: Exam: CTA Neck With Contrast Exam date and time: 05/17/2023 8:48 PM Age: 58 years old Clinical indication: Stroke-like symptoms; Headache; Additional info: Recent subdural hematoma x 3 wks ago, now headache TECHNIQUE: Imaging protocol: Computed tomographic angiography of the neck with contrast. Exam focused on the cervical segments of the vasculature. 3D rendering (Not supervised by radiologist): MIP and/or 3D reconstructed images were created by the technologist. Contrast material: OMNI 350; Contrast volume: 100 ml; Contrast route: INTRAVENOUS (IV); COMPARISON: CT BRAIN NECK CTA 05/08/2023 12:24 PM FINDINGS: Right common carotid artery: No stenosis. No dissection or occlusion. Right internal carotid artery: No stenosis of the extracranial segment. No dissection or occlusion. Right external carotid artery: No occlusion or stenosis of the origin. Left common carotid artery: No stenosis. No dissection or occlusion. Left internal carotid artery: No stenosis of the extracranial segment. No dissection or occlusion. Left external carotid artery: No occlusion or stenosis of the origin. Right vertebral artery: No stenosis. No dissection or occlusion. Left vertebral artery: No stenosis. No dissection or occlusion. Soft tissues: Normal. No significant soft tissue swelling. Bones/joints: No acute fracture. IMPRESSION: No stenosis or occlusion. REFERENCES: NASCET CRITERIA. The degree of stenosis in the cervical segment of the internal carotid artery is based on NASCET criteria. Normal is no stenosis. Mild is less than 50% stenosis. Moderate is 50-69% stenosis. Severe is 70% to 99% stenosis. Total occlusion is no detectable patent lumen. Dictated and Authenticated by: Michael Dunne MD. Ordering:CORNELL Jones MD
== END 2023-05-17 22:08 | disposition home or self-care (01) ==
PROVIDERS: Emergency Provider Emergency Medicine; PCP Nurse Practitioner Family
DX: R51.9 Headache, unspecified (principal); I62.02 Nontraumatic subacute subdural hemorrhage; I10 Essential (primary) hypertension; E11.42 Type 2 diabetes mellitus with diabetic polyneuropathy; Z79.82 Long term (current) use of aspirin; Z79.84 Long term (current) use of oral hypoglycemic drugs
CPT/HCPCS: 36415; 70496; 70498; 80053; 96374; 99285; 85025; 85610; 85730; 99284; J0131; J3490

== ENCOUNTER 2023-07-31 08:49 | Inpatient (IN) | payer MEDICAID, SELFPAY ==
[2023-07-31] VITALS (9 sets, daily range): BP systolic 111–140; BP diastolic 73–78; PULSE 83–96; RESP 10–22; TEMP 36.5–37; O2SAT 94–98
--- NOTE | 2023-07-31 08:30 | RT.EKG_ITS ---
APPROVED REPORT Exam: Resting ECG Reason for Exam: left sided weakness Patient Location: E HR:88 bpm ECG Measurements Heart Rate 88 AXIS AK 144 P 59 QRSd 108 QRS 53 QT 365 T 35 QTc 443 Conclusion Sinus rhythm...normal P axis, V-rate 60- 99
--- NOTE | 2023-07-31 08:45 | DI.RAD_ITS ---
Exam(s) XR CHEST 1V IN DI DEPT EXAM: XR CHEST 1V IN DI DEPT CLINICAL HISTORY: stroke. TECHNIQUE: 2D digital imaging was performed. COMPARISON: CR XR CHEST 2V PA LATERAL from 02/14/2019 FINDINGS: Single AP portable view. Heart size is upper normal. The mediastinum is not widened. Lungs are clear. No infiltrates nor obvious pleural effusions. Some scarring in left lung base is u nchanged from 2019 IMPRESSION: No acute pulmonary findings on this single AP portable view of the chest. DATA REPOSITORY: RADIATION DOSE DELIVERED:
--- NOTE | 2023-07-31 08:53 | ED.GENADUL_ITS ---
HPI General Mode of arrival: EMS . Date/Time Provider Initiated Documentation: 07/31/23 08:53 . Limitations to Documentation: no limitations . Information obtained by: patient . History of Present Illness 58 year old M presents to the emergency department with the chief complaint of left sided weakness, described as moderate, Patient started experiencing this hour(s) (1.5) and it has been constant. No relieving factors improve symptom(s), No exacerbating factors reported . Patient notes denies chest pain, fever/chills and shortness of breath. Patient did receive the following russell tments prior to arrival, none Related Data Home Medications Medication Instructions Recorded Confirmed lancets 33 gauge (OneTouch Delica #100 ea 09/25/18 07/31/23 Lancets) acetaminophen 500 mg capsule 500 mg PO Q4H PRN 02/18/19 07/31/23 blood sugar diagnostic (Advanced #100 ea 12/15/20 07/31/23 Glucose Meter Test Strips) blood-glucose meter (Advanced #1 ea 12/15/20 07/31/23 Glucose Meter) metronidazole 1 % topical cream 1 applic topical DAILY #60 grams 04/11/23 07/31/23 gabapentin 600 mg tablet 1,200 mg (2 x 600 mg) PO HS #180 04/18/23 07/31/23 tabs dulaglutide 3 mg/0.5 mL 3 mg (0.5 mL) subcut QWEEK #2 mL 04/24/23 07/31/23 subcutaneous pen injector metronidazole 0.75 % topical cream 1 applic topical BID #45 grams 05/24/23 07/31/23 levetiracetam 500 mg tablet 500 mg PO BID #180 tabs 06/12/23 07/31/23 escitalopram oxalate 10 mg tablet 10 mg PO DAILY #90 tabs 07/01/23 07/31/23 lisinopril 40 mg tablet 40 mg PO QAM #90 tabs 07/01/23 07/31/23 empagliflozin 25 mg tablet 25 mg PO QAM #90 tabs 07/29/23 07/31/23 (Jardiance) mecobalamin (vitamin B12) 1,000 2,000 mcg (2 x 1,000 mcg) PO DAILY 07/30/23 07/31/23 mcg chewable tablet #180 tabs Previous Rx's Medication Instructions Recorded lancets 33 gauge (OneTouch Delica #100 ea 09/25/18 Lancets) blood sugar diagnostic (Advanced #100 ea 12/15/20 Glucose Meter Test Strips) blood-glucose meter (Advanced #1 ea 12/15/20 Glucose Meter) metronidazole 1 % topical cream 1 applic topical DAILY #60 grams 04/11/23 gabapentin 600 mg tablet 1,200 mg (2 x 600 mg) PO HS #180 04/18/23 tabs dulaglutide 3 mg/0.5 mL 3 mg (0.5 mL) subcut QWEEK #2 mL 04/24/23 subcutaneous pen injector metronidazole 0.75 % topical cream 1 applic topical BID #45 grams 05/24/23 levetiracetam 500 mg tablet 500 mg PO BID #180 tabs 06/12/23 escitalopram oxalate 10 mg tablet 10 mg PO DAILY #90 tabs 07/01/23 lisinopril 40 mg tablet 40 mg PO QAM #90 tabs 07/01/23 empagliflozin 25 mg tablet 25 mg PO QAM #90 tabs 07/29/23 (Jardiance) mecobalamin (vitamin B12) 1,000 2,000 mcg (2 x 1,000 mcg) PO DAILY 07/30/23 mcg chewable tablet #180 tabs Allergies Allergy/AdvReac Type Severity Reaction Status Date / Time Penicillins Allergy Mild SKIN RASH Verified 07/31/23 09:09 General SRINIVAS: 2 Review of Systems All systems reviewed & are unremarkable except as noted in HPI and below Constitutional Constitutional: Denies chills and Denies fever(s) Eyes Eyes: Denies loss of vision Cardiovascular Cardiovascular: Denies chest pain and Denies dyspnea Respiratory Respiratory: Denies cough and Denies dyspnea Gastrointestinal Gastrointestinal: Denies abdominal pain, Denies nausea and Denies vomiting Integumentary/Breasts Skin/Breast: Denies rash Neurologic Neurologic: Denies loss of vision Exam Const General: no acute distress Orientation: alert HENFL Head: normal to inspection Ears: external ears normal General nose exam: external nose normal Mouth: moist mucous membranes Eyes General: appearance normal, both eyes and all related structures Neck Neck: normal visual inspection Resp Effort & Inspection: normal respiratory effort and able to speak in complete sentences Cardio Rate: regular rate Skin General skin exam: no rashes or lesions noted Neuro General: patient alert, patient oriented x3 and other (see mdm for more detail) Cranial Nerves: PERRL and EOM intact bilaterally Extrem General: normal to inspection Medical Decision Making 58 yo male with hx of htn, dm, who had a subdural hemorrhage last year who comes in with left sided weakness. He states he woke up feeling well, walked to the kitchen and then noticed he had a wooshing sensation in his head and his left arm and leg felt weak. EMS was called who noted left facial droop and left arm/leg weakness. He is caox4 on arrival with mild dysarthria, left lower face is drooping. EOMI, is able to raise both eyebrows, left lower face immobile, his left arm hits the bed when testing drift and has loss of soft touch to the left arm, left leg also hits the bed and has loss of sensation in the leg. NIH of 8 on arrival (1 for facial palsy, 2 for left arm motor drift, 2 for left leg motor drift,1 for sensation,1 for dysarthria). Pt seen on arrival and proceeded to CT which per radiologist has no acute hemorrhage. Givenhis history of intracranial hemorrhage not a lytic candidate, will proceed with cta of the neck and brain pt stable with continued hemiplegia cta without acute thrombus or dissection. Will discuss with neurology but will likely need admission spoke with Dr. Chung who reviewed the case and did say that there's a chance this could be eriberto's paralysis but recommended obs admission and mri, did say aspirin and statin okay at this time. Will discuss with hospitalist Differential Diagnosis Differential Diagnosis: cva, hemorrhage Medical Records Medical records reviewed: Yes I reviewed the patient's medical records. Imaging Data Radiologic Study: Attestation: I personally reviewed and interpreted this imaging study as follows: Imaging: CT Scan Radiologist's impression: Patient Name: John Syed Unit #: [id number] Loc: ER Ordering Provider: Aden Norris M.D. Status: PRE ER Primary Care Provider: Toy Kelly NP Date of Exam: 07/31/23 Sex: M : 1965 Age: 58 Exam(s) a CT:CT head wo Exam(s) CT HEAD WO EXAM: CT HEAD WO CLINICAL HISTORY: left sided weakness. TECHNIQUE: Imaging Protocol: Axial computed tomography images with coronal and sagittal reformatted images were created and reviewed COMPARISON: MR MRI - BRAIN WO CONTRAST from 07/23/[address] BRAIN NECK CTA from 05/08/[address] BRAIN NECK CTA from 05/17/2023 FINDINGS: There are no skull fractures. There is no fluid in the visualized paranasal sinuses. There are symmetrical metallic surgical device is in the anterior aspects of both middle cranial fossae related to the temporal bones. There is no evidence of acute intracranial hemorrhage, intra nor extra-axial. The previously present left-sided subdural hematoma seen on the CT scan of 05/17/2023 has resolved. There is symmetrical increased extra-axial CSF space over both frontal lobes, unchanged from prior imaging studies including MRI of June 2014. There is also milder symmetrical increased CSF extra-axial space in the anterior aspect of both middle cranial fossa anterior to the temporal lobes, also unchanged from 2015.. IMPRESSION: Findings as above but without evidence of acute intracranial hemorrhage. The left-sided subdural hematoma seen on the recent CT scan of April 2023 has resolved. Bifrontal atrophy again noted versus bifrontal hygromas. Also exaggerated CSF space anterior to both temporal lobes in both middle cranial fossa. Correlation with any clinical history of frontotemporal dementia recommended. Called to ER 07/31/2023 9:10 a.m. Radiologic Study #2: Attestation: I personally reviewed and interpreted this imaging study as follows: Imaging: CT Scan Radiologist's impression: Patient Name: John Syed Unit #: [id number] Loc: ER Ordering Provider: Aden Norris M.D. Status: REG ER Primary Care Provider: Toy Kelly NP Date of Exam: 07/31/23 Sex: M : 1965 Age: 58 Exam(s) a CT:CT brain & neck CTA Exam(s) CT BRAIN NECK CTA EXAM: CT BRAIN NECK CTA CLINICAL HISTORY: left sided weakness. TECHNIQUE: Imaging Protocol: Axial CT angiography was performed with multi- slice acquisition and multi-planar and/or 3D reconstructions. CONTRAST MATERIAL: Intravenous: Omnipaque 350 Contrast volume:structured data in ml COMPARISON: CT CT BRAIN NECK CTA from 05/17/2023 FINDINGS: CTA Neck W: Aortic arch anatomy: The aortic arch anatomy is conventional and there is no significant stenosis at the origin of the great vessels off of the aortic arch. No intimal flap evident. Anterior circulation: Both common carotid arteries ascend with normal luminal diameters. At the level the carotid bulbs and proximal internal carotid arteries there is minimal plaque without hemodynamically significant stenosis evident. Posterior circulation: Both vertebral arteries originate in conventional fashion off of the subclavian arteries and there is no obvious stenosis at the origin of the vertebral arteries. The right vertebral artery is dominant sending with normal luminal diameter in the foramen transverse area. The left vertebral artery is a significantly thinner vessel throughout its entire length. At the skull base the dominant right vertebral artery is the main contributor to the formation of the basilar artery. The left vertebral artery terminates as the left posterior inferior cerebellar artery. CTA Brain W: Anterior circulation: Both internal carotid arteries are patent in the skull base-carotid canals as well as within the cavernous sinuses. The supraclinoid aspects of the ICAs are patent. Both A1 segments are patent as are the anterior cerebral arteries and there is no evidence of aneurysm at the level of the anterior communicating artery. Both middle cerebral arteries are patent with no evidence of significant stenosis nor intraluminal thrombus. There also no aneurysms of these vessels. Posterior circulation: The basilar artery ascends in the midline. Distally it gives off patent bilateral superior cerebellar arteries. The posterior cerebral arteries are supplied by posterior communicating arteries on both sides of the oygxfh-qc-Lhuvqa. The P1 segments off the tip of the basilar artery are developmentally thin. There is no evidence of aneurysm at the tip of the basilar artery nor elsewhere in the vamuhg-uw-Naswvk. CT BRAIN: There is no evidence of acute intracranial hemorrhage, new mass effect, or shift of midline structures. No ring enhancing lesions in the brain and no abnormal meningeal enhancement. Exaggerated symmetrical CSF spaces over both frontal lobes are again noted with vessels running through these areas implying bifrontal atrophy. A previously present left-sided convexity subdural hematoma seen on CT scan of 05/08/2023 is no longer seen. IMPRESSION: 1. Patent carotid arteries in the neck. No hemodynamically significant stenosis. 2. Patent vertebral arteries. The right vertebral artery is dominant. The left vertebral artery is developmentally thin, as described above. 3. Patent intracranial arteries. No significant stenosis nor aneurysms. 4. No ring enhancing lesions in the brain and no abnormal meningeal enhancement. 5. Previously present left side subdural hematoma has resolved, this last seen on CT scan of 05/08/2023. 6. Symmetrical bifrontal atrophy noted. Also symmetrical exaggerated CSF spaces anterior to the temporal lobes in the middle cranial fossa. Correlation with any clinical signs of frontotemporal dementia recommended. Lab Data Lab results reviewed: Yes I reviewed the patient's lab results. ECG Data Attestation: I personally reviewed and interpreted this ECG (s) as follows: Prior ECG tracings: not available for review Interpretation: sinus rate of 88, pr 144, no stemi Quality:SDOH Health Related Social Needs: No Data to Display PFSH All Active Problems (Updated 07/31/23 @ 12:41 by Aden Norris MD) Left hemiplegia (Acute) Major depressive disorder (Chronic) Rosacea (Acute) Local superficial swelling, mass or lump (Acute) Fatigue (Acute) Forgetfulness (Acute) Hyperlipemia (Acute) Skin lesions (Acute) Face Spondylolisthesis of lumbar region (Chronic 11/16/14) Premature atrial contractions (Chronic 05/17/15) Obstructive sleep apnea syndrome (Chronic) sleeps in recliner Essential hypertension (Chronic 06/01/13) Diabetic peripheral neuropathy associated with type 2 diabetes mellitus (Chronic 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 Brother No problems noted. Brother No problems noted. Son No problems noted. Daughter No problems noted. 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 Pets and animals: Yes Pets and animals: cat(s) Sexually active: No Do you think of yourself as: straight/heterosexual Current gender identity: male What is your relationship status?: How often do you talk on the phone with friends or family?: twice per week How often do you get together with friends or relatives?: never How often do you attend jain or buddhist services?: decline to answer Do you belong to any clubs or organized social groups?: no Panel score (0-1 are the most socially isolated patients): 1 NHANES result reviewed/action taken: No What type of physical activity do you participate in: none Duration: 15-30 minutes/day Frequency: daily Mally/Quaker: Zoroastrianism Agree to transfusion: No Seatbelt use: always Drive intox or ride w/intox driver helper: No Working smoke detector in home: Yes Carbon monox detector in home: Yes Firearms in home: Yes Firearms unloaded and locked: Yes Do you feel safe at home: Yes Do you feel safe in your relationship?: Yes Would you like helpful sources: No Discharge Plan Disposition Patient Disposition: Admit to [facility] Discharge Details Chief Complaint: CVA/TIA Clinical Impression: Left hemiplegia Primary Care Provider: Toy Kelly ED Provider: Aden Norris Meds and New Rx's Prescriptions: No Action acetaminophen 500 mg capsule 500 mg PO Q4H PRN metronidazole 1 % cream 1 applic topical DAILY Qty: 60 2RF Hold Instructions: Pt Stopped/Never Started (DME) blood-glucose meter [Advanced Glucose Meter] Misc See Rx Instructions .ROUTE .MEDSUPPLY Qty: 1 0RF Rx Instructions: As directed (DME) Advanced Gluc Meter Test Strip Strip See Rx Instructions .ROUTE .MEDSUPPLY Qty: 100 4RF Rx Instructions: Twice daily metronidazole 0.75 % cream 1 applic topical BID Qty: 45 2RF (DME) lancets [OneTouch Delica Lancets] 33 gauge misc See Dose Instructions .ROUTE DAILY Qty: 100 4RF Dose Instruction: One each daily Rx Instructions: One each daily gabapentin 600 mg tablet 1,200 mg PO HS Qty: 180 3RF Patient Comments: Pt takes 600 mg in AM and 600 mg at HS dulaglutide 3 mg/0.5 mL pen injector 3 mg subcut QWEEK Qty: 2 5RF levetiracetam 500 mg tablet 500 mg PO BID Qty: 180 3RF lisinopril 40 mg tablet 40 mg PO QAM Qty: 90 3RF escitalopram oxalate 10 mg tablet 10 mg PO DAILY Qty: 90 3RF Rx Instructions: per [facility] discharge Jardiance 25 mg tablet 25 mg PO QAM Qty: 90 3RF mecobalamin (vitamin B12) 1,000 mcg tablet,chewable 2,000 mcg PO DAILY Qty: 180 3RF Patient Comments: Takes 1000 mcg in AM and 1000 mcg at HS
--- NOTE | 2023-07-31 09:00 | DI.CT_ITS ---
Exam(s) CT HEAD WO EXAM: CT HEAD WO CLINICAL HISTORY: left sided weakness. TECHNIQUE: Imaging Protocol: Axial computed tomography images with coronal and sagittal reformatted images were created and reviewed COMPARISON: MR MRI - BRAIN WO CONTRAST from 07/23/[address] BRAIN NECK CTA from 05/08/[address] BRAIN NECK CTA from 05/17/2023 FINDINGS: There are no skull fractures. There is no fluid in the visualized paranasal sinuses. There are symme trical metallic surgical device is in the anterior aspects of both middle cranial fossae related to t he temporal bones. There is no evidence of acute intracranial hemorrhage, intra nor extra-axial. The previously present left-sided subdural hematoma seen on the CT scan of 05/17/2023 has resolved. There is symmetrical i ncreased extra-axial CSF space over both frontal lobes, unchanged from prior imaging studies includin g MRI of June 2014. There is also milder symmetrical increased CSF extra-axial space in the anter ior aspect of both middle cranial fossa anterior to the temporal lobes, also unchanged from 2015.. IMPRESSION: Findings as above but without evidence of acute intracranial hemorrhage. The left-sided subdural hem atoma seen on the recent CT scan of April 2023 has resolved. Bifrontal atrophy again noted versus bifrontal hygromas. Also exaggerated CSF space anterior to both temporal lobes in both middle cranial fossa. Correlation with any clinical history of frontotempora l dementia recommended. Called to ER 07/31/2023 9:10 a.m. RADIATION DOSE DELIVERED: 898.85mGy.cm Total DLP DATA REPOSITORY: All CT scans at this facility are submitted to the National Radiology Data Registry (NRDR) Dose Index Registry (DIR) with the [employer] (ACR). RADIATION OPTIMIZATION: All CT scans at this facility use at least one of these dose optimization te chniques: automated exposure control; mA and/or kV adjustment per patient size (includes targeted exa ms where dose is matched to clinical indication); or iterative reconstruction.
[2023-07-31 09:26] LABS: Abs Immature Grans 0.03 10^3/uL (0.0-0.06); Absolute Basophil Count 0.05 10^3/uL (0.0-0.2); Absolute Eosinophil Count 0.17 10^3/uL (0.0-0.7); Absolute Lymphocyte Count 1.88 10^3/uL (1.2-3.4); Absolute Monocyte Count 0.63 10^3/uL (0.1-0.8); Absolute Neutrophil Count 4.75 10^3/uL (1.2-6.7); Basophils % 0.7; Eosinophils % 2.3; HCT 54.5 % (40.0-50.0); HGB 18.1 g/dL (13.5-17.5); Immature Grans % 0.4; MCH 28.9 pg (27.0-33.0); MCHC 33.2 % (32.0-36.0); MCV 87 fL (80-95); MPV 10.3 fL (8.0-11.0); Monocytes % 8.4; Neutrophils % 63.2; Platelet Count 201 10^3/uL (130-400); RBC 6.26 10^6/uL (4.36-5.78); RDW 13.7 % (11.8-14.1); RDW-SD 43.8 fL; WBC 7.51 10^3/uL (4.4-10.8)
[2023-07-31 09:41] LABS: ALT 37 U/L (16-63); AST 16 U/L (15-37); Albumin 3.9 g/dL (3.4-5.0); Alkaline Phosphatase 44 U/L (46-116); Anion Gap 8.4 mmol/L (3-11); BUN 16 mg/dL (7-18); Bilirubin, Total 0.8 mg/dL (0.2-1.0); CO2 27.6 mmol/L (21.0-32.0); CREATININE 0.9 mg/dL (0.70-1.30); Calcium 9.3 mg/dL (8.5-10.1); Chloride 103 mmol/L (98-107); Estimated GFR 97.78 (mL/min/1.73m2); Glucose 125 mg/dL (74-106); Magnesium 2.1 mg/dL (1.8-2.4); Potassium 4.3 mmol/L (3.5-5.1); Sodium 139 mmol/L (136-145); Total Protein 7.5 g/dL (6.4-8.2); Troponin I < 50 ng/L (< or =60)
[2023-07-31 09:43] LABS: PTT Activated 25.9 sec (23.6-32.8); Prothrombin Time 10.4 sec (9.1-11.1)
[2023-07-31 09:52] LABS: Diff Comment Diff Reviewed; RBC Morphology Normal
[2023-07-31] MEDS: Normal Saline - Diluent 50 ML VIAL IJ (10:00)
[2023-07-31] MEDS: Omnipaque 350 MG/ML 500 ML BTL-Imaging package 85 ML IJ (10:01)
--- NOTE | 2023-07-31 10:15 | DI.CT_ITS ---
Exam(s) CT BRAIN NECK CTA EXAM: CT BRAIN NECK CTA CLINICAL HISTORY: left sided weakness. TECHNIQUE: Imaging Protocol: Axial CT angiography was performed with multi-slice acquisition and mu lti-planar and/or 3D reconstructions. CONTRAST MATERIAL: Intravenous: Omnipaque 350 Contrast volume:structured data in ml COMPARISON: CT CT BRAIN NECK CTA from 05/17/2023 FINDINGS: CTA Neck W: Aortic arch anatomy: The aortic arch anatomy is conventional and there is no significant stenosis at the origin of the great vessels off of the aortic arch. No intimal flap evident. Anterior circulation: Both common carotid arteries ascend with normal luminal diameters. At the level the carotid bulbs and proximal internal carotid arteries there is minimal plaque without hemodynamically significant stenosis evident. Posterior circulation: Both vertebral arteries originate in conventional fashion off of the subclavian arteries and there is no obvious stenosis at the origin of the vertebral arteries. The right vertebral artery is dominant sending with normal luminal diameter in the foramen transverse area. The left vertebral artery is a significantly thinner vessel throughout its entire length. At the [facility] ll base the dominant right vertebral artery is the main contributor to the formation of the basilar a rtery. The left vertebral artery terminates as the left posterior inferior cerebellar artery. CTA Brain W: Anterior circulation: Both internal carotid arteries are patent in the skull base-carotid canals as well as within the cave rnous sinuses. The supraclinoid aspects of the ICAs are patent. Both A1 segments are patent as are the anterior cer ebral arteries and there is no evidence of aneurysm at the level of the anterior communicating artery . Both middle cerebral arteries are patent with no evidence of significant stenosis nor intraluminal th rombus. There also no aneurysms of these vessels. Posterior circulation: The basilar artery ascends in the midline. Distally it gives off patent bilateral superior cerebella r arteries. The posterior cerebral arteries are supplied by posterior communicating arteries on both sides of the dikqqc-so-Eijayh. The P1 segments off the tip of the basilar artery are developmentally thin. There is no evidence of aneurysm at the tip of the basilar artery nor elsewhere in the gohjcb-se-Cczh is. CT BRAIN: There is no evidence of acute intracranial hemorrhage, new mass effect, or shift of midline structure s. No ring enhancing lesions in the brain and no abnormal meningeal enhancement. Exaggerated symmet rical CSF spaces over both frontal lobes are again noted with vessels running through these areas imp lying bifrontal atrophy. A previously present left-sided convexity subdural hematoma seen on CT scan of 05/08/2023 is no longer seen. IMPRESSION: 1. Patent carotid arteries in the neck. No hemodynamically significant stenosis. 2. Patent vertebral arteries. The right vertebral artery is dominant. The left vertebral artery is developmentally thin, as described above. 3. Patent intracranial arteries. No significant stenosis nor aneurysms. 4. No ring enhancing lesions in the brain and no abnormal meningeal enhancement. 5. Previously present left side subdural hematoma has resolved, this last seen on CT scan of 05/08/20 23. 6. Symmetrical bifrontal atrophy noted. Also symmetrical exaggerated CSF spaces anterior to the temp oral lobes in the middle cranial fossa. Correlation with any clinical signs of frontotemporal vaishali ia recommended. Called by myself to ER physician. RADIATION DOSE DELIVERED: 1,435.51mGy.cm Total DLP DATA REPOSITORY: All CT scans at this facility are submitted to the National Radiology Data Registry (NRDR) Dose Index Registry (DIR) with the [employer] (ACR). RADIATION OPTIMIZATION: All CT scans at this facility use at least one of these dose optimization te chniques: automated exposure control; mA and/or kV adjustment per patient size (includes targeted exa ms where dose is matched to clinical indication); or iterative reconstruction.
--- NOTE | 2023-07-31 12:00 | DI.MRI_ITS ---
Exam(s) MR BRAIN WO EXAM: MR BRAIN WO CLINICAL HISTORY: ?cva TECHNIQUE: Multiplanar multisequence MRI of the brain was performed. COMPARISON: CT CT BRAIN NECK CTA from 07/31/[address] HEAD WO from 07/31/2023 FINDINGS: CEREBRAL PARENCHYMA: There is significant area of restricted diffusion on DWI imaging evident in the right parietal lobe c onsistent with acute nonhemorrhagic infarct. No other infarct areas evident in the brain. Remnant o f previously present small subdural hematoma over the left convexity the is noted posteriorly which i s more evident on MRI than on today's CT scan. This is over the left posterior parietal convexity an d measures 4 millimeters thick. There is no intra-axial hemorrhage. No abnormal signal in the cerebellar hemispheres nor within the gilbert, midbrain, and thalami nor withi n the periventricular white matter. Symmetrical increased CSF space over the bilateral frontal lobes is again noted as well as over the a nterior aspect of both temporal lobes in the bilateral middle cranial fossa. PITUITARY GLAND: No mass nor parasellar abnormality. No obvious abnormality in the cavernous sinuses. FLOW VOIDS: The expected flow void are noted. No evidence of obvious aneurysm nor obvious vascular ma lformation. PARANASAL SINUSES: The visualized paranasal sinuses appear unremarkable. No obvious finding ORBITS: No obvious findings. IMPRESSION: 1. Acute nonhemorrhagic infarct in the posterior right parietal lobe. 2. Remnant aspect of previously documented left convexity subdural hematoma presently with some remna nt over the left upper parietal convex Discussed with ER physician. DATA REPOSITORY:
[2023-07-31] MEDS: Aspirin 325 MG TAB PO (12:41)
--- NOTE | 2023-07-31 12:50 | HPE_ITS ---
Date of service: 07/31/23 Time of Service: 12:50 Assessment and Plan Assessment and plan (1) Acute left-sided weakness: Status: Acute Assessment and plan: In addition to dysarthria. 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 For echo, EEG, neurology consult. C/s PT, OT, speech therapy. Monitor on tele. Neurochecks. Will treat with baby aspirin and statin. Check A1C, B12, fasting lipid panel. TSH ok. Permissive hypertension. (2) Essential hypertension: Status: Chronic Assessment and plan: Hold lisinopril in light of #1. (3) Diabetes mellitus: Status: Chronic Assessment and plan: Hold oral agents and cover with SSI. Qualifiers: Diabetes mellitus complication status: without complication Diabetes mellitus residential insulin use: without extermination supervisor use Diabetes mellitus type: t ype 2 Qualified Code(s): E11.9 - Type 2 diabetes mellitus without complications (4) Diabetic peripheral neuropathy associated with type 2 diabetes mellitus: Status: Chronic Assessment and plan: Continue gabapentin (5) Obstructive sleep apnea syndrome: Status: Chronic Assessment and plan: Will inquire if the patient uses a CPAP/BiPAP machine (6) Hyperlipemia: Status: Chronic Assessment and plan: Check fasting lipid panel. Start on a statin empirically Qualifiers: Hyperlipidemia type: mixed hyperlipidemia Qualified Code(s): E78.2 - Mixed hyperlipidemia (7) DVT prophylaxis: Status: Acute Assessment and plan: SC heparin (8) Discharge planning issues: Status: Acute Assessment and plan: Full code The patient would not accept a blood transfusion due to his islam beliefs. C/S PT/OT/Speech therapy History of Present Illness History of Present Illness Chief Complaint: Sudden onset of L sided weakness and dysarthria Narrative: Mr Syed is a 58 year old male with PMHx of a traumatic subdural hematoma in April of 2023, as well as h/o NIDDM2 complicated by neuropathy, hypertension, hypderlipidemia, ABHILASH, obesity with BMI of 30.1 kg/m2, who woke up at his usual state of health, but then developed acute onset of a sensation of being swept up by a wave, felt like he was falling, and also noting L-sided weakness, including L-sided facial weakness, as well as dysarthria. He did not have a hard time finding words, just pronouncing them. This was also observed in the ED, in addition to the L-sided pronator drift. His NIH stroke scale at that time was 8. His CT/CTA of the head/neck did not show any acute ischemic stroke or major vessel occlusion. The case was reviewed with neurology at [facility]: the differential diagnosis includes acute ischemic stroke vs Michael's paralysis/complex partial seizure. The patient was cleared to receive aspirin and a statin, and a hospitalist admission was requested for an MRI of the brain, echocardiogram, neurology, PT, OT, and speech therapy evaluations. The patient is being admitted to the medical surgical floor. The patient is now feeling better, his speech has improved, though it has not yet normalized. He is L handed. He has paresthesias in L hand, is numb in L hand, but the weakness in LUE and LLE is improving. Review of Systems All systems reviewed & are unremarkable except as noted in HPI and below PFSH All Active Problems (Updated 07/31/23 @ 13:11 by Judy Lema MD) Discharge planning issues (Acute) DVT prophylaxis (Acute) Acute left-sided weakness (Acute) Left hemiplegia (Acute) Major depressive disorder (Chronic) Rosacea (Acute) Local superficial swelling, mass or lump (Acute) Fatigue (Acute) Forgetfulness (Acute) Hyperlipemia (Chronic) Skin lesions (Acute) Face Spondylolisthesis of lumbar region (Chronic 11/16/14) Premature atrial contractions (Chronic 05/17/15) Obstructive sleep apnea syndrome (Chronic) sleeps in recliner Essential hypertension (Chronic 06/01/13) Diabetic peripheral neuropathy associated with type 2 diabetes mellitus (Chronic 10/15/14) Diabetes mellitus (Chronic 10/31/12) Medical History Colitis Kidney stones Diarrhea (08/19/12) Microscopic colitis first diagnosed 1994 Bursitis of left shoulder (04/16/17) Surgical History History of appendectomy Status post inguinal hernia repair Repair of inguinal hernia Appendectomy Family History Mother , AGE 78 Diabetes Neoplasm Father , AGE 92 Diabetes Sister No problems noted. Brother No problems noted. Brother No problems noted. Son No problems noted. Daughter No problems noted. 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 Pets and animals: Yes Pets and animals: cat(s) Sexually active: No Do you think of yourself as: straight/heterosexual Current gender identity: male What is your relationship status?: How often do you talk on the phone with friends or family?: twice per week How often do you get together with friends or relatives?: never How often do you attend sabianism or islam services?: decline to answer Do you belong to any clubs or organized social groups?: no Panel score (0-1 are the most socially isolated patients): 1 NHANES result reviewed/action taken: No What type of physical activity do you participate in: none Duration: 15-30 minutes/day Frequency: daily Mally/Lutheran: Lutheran Agree to transfusion: No Seatbelt use: always Drive intox or ride w/intox 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 Working smoke detector in home: Yes Carbon monox detector in home: Yes Firearms in home: Yes Firearms unloaded and locked: Yes Do you feel safe at home: Yes Do you feel safe in your relationship?: Yes Would you like helpful sources: No Meds Allergies and Home Medications Allergies Allergy/AdvReac Type Severity Reaction Status Date / Time Penicillins Allergy Mild SKIN RASH Verified 07/31/23 09:09 Home Medications Medication Instructions Recorded Confirmed Type lancets 33 gauge (OneTouch Delica #100 ea 09/25/18 07/31/23 Rx Lancets) acetaminophen 500 mg capsule 500 mg PO Q4H PRN 02/18/19 07/31/23 History blood sugar diagnostic (Advanced #100 ea 12/15/20 07/31/23 Rx Glucose Meter Test Strips) blood-glucose meter (Advanced #1 ea 12/15/20 07/31/23 Rx Glucose Meter) gabapentin 600 mg tablet 1,200 mg (2 x 600 mg) PO HS #180 04/18/23 07/31/23 Rx tabs dulaglutide 3 mg/0.5 mL 3 mg (0.5 mL) subcut QWEEK #2 mL 04/24/23 07/31/23 Rx subcutaneous pen injector metronidazole 0.75 % topical cream 1 applic topical BID #45 grams 05/24/23 07/31/23 Rx levetiracetam 500 mg tablet 500 mg PO BID #180 tabs 06/12/23 07/31/23 Rx escitalopram oxalate 10 mg tablet 10 mg PO DAILY #90 tabs 07/01/23 07/31/23 Rx lisinopril 40 mg tablet 40 mg PO QAM #90 tabs 07/01/23 07/31/23 Rx empagliflozin 25 mg tablet 25 mg PO QAM #90 tabs 07/29/23 07/31/23 Rx (Jardiance) mecobalamin (vitamin B12) 1,000 2,000 mcg (2 x 1,000 mcg) PO DAILY 07/30/23 07/31/23 Rx mcg chewable tablet #180 tabs Exam Narrative Exam Narrative: General: A pleasant middle-aged male who is A&Ox3, slurring his speech slightly Neurological: A&Ox3, CNII-XII intact, sensory: paresthesias LUE, otherwise intact, 5/5 strength RUE/RLE, 3/5 strength LLE, 3+/5 strength LUE, Unable to get R patellar reflex, 2+ patellar reflex LLE, no clonus, +Babinski LLE, equivocal on R. No pronator drift. Finger to nose intact on R, unable to do on L. Psychiatric: Appropriate speech pattern/content Skin: Visible skin intact HEENT: Atraumatic, normocephalic, EOMI, dry MM, clear oropharynx, tongue midline, no submandibular or cervical lymphadenopathy, no goiter or JVD Cardiovascular: RRR, no m/r/g Lungs: CTAB Gastrointestinal: soft, nontender, nondistended Genitourinary: deferred Extremities: no edema BLEs, 2+ pedal pulses B Results Imaging Imaging Studies: CXR: No acute pulmonary findings on this single AP portable view of the chest. CT head: Findings as above but without evidence of acute intracranial hemorrhage. The left-sided subdural hematoma seen on the recent CT scan of April 2023 has resolved. Bifrontal atrophy again noted versus bifrontal hygromas. Also exaggerated CSF space anterior to both temporal lobes in both middle cranial fossa. Correlation with any clinical history of frontotemporal dementia recommended. CT/CTA head/neck; 1. Patent carotid arteries in the neck. No hemodynamically significant stenosis. 2. Patent vertebral arteries. The right vertebral artery is dominant. The left vertebral artery is developmentally thin, as described above. 3. Patent intracranial arteries. No significant stenosis nor aneurysms. 4. No ring enhancing lesions in the brain and no abnormal meningeal enhancement. 5. Previously present left side subdural hematoma has resolved, this last seen on CT scan of 05/08/2023. 6. Symmetrical bifrontal atrophy noted. Also symmetrical exaggerated CSF spaces anterior to the temporal lobes in the middle cranial fossa. Correlation with any clinical signs of frontotemporal dementia recommended. EKG: NSR, HR 88, no acute ischemia MRI brain: 1. Acute nonhemorrhagic infarct in the posterior right parietal lobe. 2. Remnant aspect of previously documented left convexity subdural hematoma presently with some remnant over the left upper parietal convex Labs 07/31/23 09:20 07/31/23 09:20 Labs: Laboratory Results - last 24 hr 07/31/23 09:20 WBC 7.51 RBC 6.26 H Hgb 18.1 H Hct 54.5 H MCV 87 MCH 28.9 MCHC 33.2 RDW 13.7 Plt Count 201 MPV 10.3 Immature Gran % 0.4 Neutrophils % 63.2 Lymphocytes % 25.0 Monocytes % 8.4 Eosinophils % 2.3 Basophils % 0.7 Nucleated RBC % 0.0 Absolute Neutrophils 4.75 Absolute Lymphocytes 1.88 Absolute Monocytes 0.63 Absolute Eosinophils 0.17 Absolute Basophils 0.05 RBC Morphology Normal PT 10.4 INR 1.0 APTT 25.9 Sodium 139 Potassium 4.3 Chloride 103 Carbon Dioxide 27.6 Anion Gap 8.4 BUN 16 Creatinine 0.9 Est GFR (CKD-EPI 2020) 97.78 Glucose 125 H Calcium 9.3 Magnesium 2.1 Total Bilirubin 0.8 AST 16 ALT 37 Alkaline Phosphatase 44 L Troponin I < 50 Total Protein 7.5 Albumin 3.9 Last Vital Signs Temp 36.5 C 07/31/23 09:02 Pulse 90 07/31/23 09:02 Resp 13 07/31/23 09:20 BP 140/78 07/31/23 09:02 Pulse Ox 98 07/31/23 09:02 Time Spent Time spent with Patient: 55-74 minutes Time was spent: preparing to see the patient(eg.review tests), obtaining and/or reviewing separately otained hiistory, ordering medications,tests, procedures, referring, communicating with other health patient care provider, indepentently interpreting results, counseling the patient and care coordination
[2023-07-31 12:55] LABS: Troponin I < 50 ng/L (< or =60)
--- NOTE | 2023-07-31 16:55 | IN_ITS ---
PT Notes Visit Reasons: Acute CVA Physical Therapy Inpatient Initial Evaluation Date: 07/31/2023 Referring Doctor: Judy Lema MD PT Orders: PT CONSULT: Limited ability Precautions: Fall. Standard. Activity as tolerated. Patient Profile/Admitting Diagnosis: Patient is a 58-year-old male who presented to the ED on 07/31/2023 due to left- sided weakness and left facial weakness. He is admitted for management and further testing of L-sided weakness, essential HTN, DM, ABHILASH, and hyperlipidemia. PMHX: All Active Problems (Updated 07/31/23 @ 13:11 by Judy Lema MD) Discharge planning issues (Acute) DVT prophylaxis (Acute) Acute left-sided weakness (Acute) Left hemiplegia (Acute) Major depressive disorder (Chronic) Rosacea (Acute) Local superficial swelling, mass or lump (Acute) Fatigue (Acute) Forgetfulness (Acute) Hyperlipemia (Chronic) Skin lesions (Acute) FaceSpondylolisthesis of lumbar region (Chronic 11/16/14) Premature atrial contractions (Chronic 05/17/15) Obstructive sleep apnea syndrome (Chronic) sleeps in reclinerEssential hypertension (Chronic 06/01/13) Diabetic peripheral neuropathy associated with type 2 diabetes mellitus (Chronic 10/15/14) Diabetes mellitus (Chronic 10/31/12) Medical History Colitis Kidney stones Diarrhea (08/19/12) Microscopic colitis first diagnosed 1995 Bursitis of left shoulder (04/16/17) Surgical History History of appendectomy Status post inguinal hernia repair Repair of inguinal hernia Appendectomy Social History/Home Situation: 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 Independent with all aspects of ADLs prior to this admission. Equipment Owned/DME: None Subjective: Patient reported that he was preparing breakfast at home when he felt sensation of worsening waves going on in his forehead, his L arm dropping onto his L lap, and his R arm shaking uncontrollably. He remembered trying to put himself down slowly onto the floor and requested his 12-year-old daughter who was nearby to call his who then called 911. On eval, He complained of his L arm and L leg feeling heavy like cement and struggled to move them during range of motion testing with this PT. He denied chest pain. He did report having a mild headache but then again he gets the headache if he is hungry-- he has not eaten anything since he was sent to the hospital today. Nurse Astrid was notified about this issue to ensure that patient got something to eat. Objective: General Observation: Patient resting in bed. Mental Status: Alert and oriented as to person, place, time, and purpose. Able to pay attention, focus, and respond appropriately. Pain: Mild headache Vital Signs: Closely monitored by nursing staff ROM: Right Upper Extremity: Shoulder Flexion WFL. Shoulder abduction WFL. Elbow flexion WFL. Wrist flexion WFL. Functional opening and closing of hand WFL. Left Upper Extremity: Shoulder Flexion only allows the first 25% of AROM. Shoulder abduction only allows the first 25% of AROM. Elbow flexion WFL. Wrist flexion WFL. Functional opening and closing of hand WFL. Right Lower Extremity: Hip flexion WFL. Hip abduction WFL. Knee flexion WFL. Ankle dorsiflexion WFL. Ankle plantarflexion WFL. Left Lower Extremity: Hip flexion only allows the first 25% of AROM. Hip abduction only allows the first 25% of AROM. Knee flexion only allows the first 25% of AROM. Ankle dorsiflexion to neutral only. Ankle plantarflexion WFL. Strength: Right Upper Extremity: Shoulder flexors 4/5. Shoulder abductors 4/5. Elbow f lexors 5/5. Elbow extensors 4/5. Business Quality Assurance Analyst strong. Left Upper Extremity: Shoulder flexors 2-/5. Shoulder abductors 2-/5. Elbow flexors 4-/5. Elbow extensors 4-/5. Business Quality Assurance Analyst strong. Right Lower Extremity: Hip flexors 4/5. Hip abductors 4/5. Knee flexors 4/5. Knee extensors 4/5. Ankle dorsiflexors 4/5. Ankle plantarflexors 4/5. Left Lower Extremity: Hip flexors 1/5. Hip abductors 1/5. Knee flexors 1/5. Knee extensors 1/5. Ankle dorsiflexors 3-/5. Ankle plantarflexors 4-/5. Bed Mobility/Transfers: Moderate cueing provided for use of B hands as needed for support and for movement sequence. Rolling moderate assist Supine to sit moderate assist Sit to supine moderate assist Sit to stand deferred, patient too weak, has not eaten since this morning Stand to sit deferred, patient too weak, has not eaten since this morning Bed to bedside commode deferred, patient too weak, has not eaten since this morning Bedside commode to bed deferred, patient too weak, has not eaten since this morning Bed to reclining chair deferred, patient too weak, has not eaten since this morning Reclining chair to bed deferred, patient too weak, has not eaten since this morning Gait: Deferred, patient too weak, has not eaten since this morning Balance: Static Sitting: Poor Dynamic Sitting: Unable Static Standing: Unable to test Dynamic Standing: Unable to test Special Tests: Mobility Limitations Standardized Measure [facility]-P[facility] 6 clicks Basic Mobility Inpatient Short Form: Raw Score: 10 CMS Score: 77% deficit Informed Consent/Education: Patient was instructed in purpose of PT consult and plan of care. Agreeable to proceed with established PT POC to achieve personal goals. ASSESSMENT: L-sided hemiParesis with the L LE more affected than the L UE. Will continue with mobility assessment in the next session when patient has rested more and is not very hungry. Patient presents with clinical signs and symptoms consistent with current/admitting diagnoses that have resulted to mobility limitations, gait instability, generalized weakness, and overall ADL decline as demonstrated by the following impairment level findings: 1. Decreased strength to L UE/LE major muscle groups 2. Impaired sitting/standing balance 3. Impaired activity tolerance 4. Limitation of joint range of motion in L UE/LE joints 5. Mild headache Impairments are contributing to the following functional limitations: 1. Decline in bed mobility skills 2. Decline in transfer skills 3. Difficulty with ambulation without assistive device and physical assistance 4. Increased completion time for mobility ADL performance 5. Increased risk for falls 6. Difficulty with managing steps alone safely Patient is assessed as a 34060 complexity based on the following: History: 58-year-old male with past medical history as indicated above Examination: Demonstrable impairment in strength, balance, and mobility level with underlying impairments and functional limitations as exhibited above as well as deficit score of 77% utilizing the [facility] Mobility Inpatient Short Form Presentation: Evolving Decision Makin moderate complexity Goals: Goals X1 week 1. Supine-Sit independent 2. Sit-Supine independent 3. Sit-Stand independent 4. Stand-Sit independent with platform FWW vs hemiwalker 5. Bed-Chair independent with platform FWW vs hemiwalker 6. Chair-Bed independent with platform FWW vs hemiwalker 7. Independent gait on level surface with use of platform FWW vs hemiwalker for at least 150 feet without report of pain nor dyspnea 8. Independent stair negotiation while holding onto 1 rail for at least 5 steps without report of pain nor dyspnea 9. fair static and dynamic standing balance/tolerance Plan of Care/Treatment Plan: 1-2x/day, 7 days/week x 1 week. Plan of care has been reviewed with the COMPUTER PROGRAMMER providing the service under Physical Therapy direction. Initiate Physical Therapy intervention for pain management as needed, strengthening, bed mobility, transfers, gait, stairs, balance training, and use of assistive device. DISCHARGE RECOMMENDATIONS: [] Home with no services [] [] Home with services [specify] [] Home with outpatient PT [] [] SNF for continued rehabilitation [] [] Force Dispatcher Care [] [] SNF versus LTC based on ability to participate and progress [] [X] Acute stroke rehab facility vs SNF TREATMENT CODE/TIME: 9716 2 x 19 minutes for 1 unit (16:55-16:14) Thank you for the opportunity to participate in the care of this patient. Jonna Ross PT, DPT, CLT [facility] [place], [place]
[2023-07-31] MEDS: Heparin 5,000 UNITS/ML VIAL 5000 UNITS SC (18:36)
[2023-07-31] MEDS: metroNIDAZOLE 0.75% CR. 45 GM TUBE TP (20:26)
[2023-07-31] MEDS: Atorvastatin 40 MG TAB 80 MG PO (20:26)
[2023-07-31] MEDS: levETIRAcetam 500 MG TAB PO (20:26)
[2023-07-31] MEDS: Normal Saline Flush 10 ML SYR IVP (20:27)
[2023-07-31] MEDS: Gabapentin 600 MG TAB 1200 MG PO (22:48)
[2023-08-01] MEDS: Lactated Ringers 1,000 ML 125 ML IV
[2023-08-01] MEDS: Heparin 5,000 UNITS/ML VIAL 5000 UNITS SC ×3 (02:44→18:06)
[2023-08-01 02:52] VITALS: BP 116/69; PULSE 81; RESP 18; TEMP 36.3; O2SAT 95
[2023-08-01 06:55] LABS: Abs Immature Grans 0.02 10^3/uL (0.0-0.06); Absolute Basophil Count 0.05 10^3/uL (0.0-0.2); Absolute Lymphocyte Count 2.04 10^3/uL (1.2-3.4); Absolute Monocyte Count 0.68 10^3/uL (0.1-0.8); Absolute Neutrophil Count 4.94 10^3/uL (1.2-6.7); Basophils % 0.6; Eosinophils % 2.5; HGB 18.1 g/dL (13.5-17.5); Immature Grans % 0.3; Lymphocytes % 25.7; MCH 29.3 pg (27.0-33.0); MCHC 33.5 % (32.0-36.0); MCV 88 fL (80-95); MPV 10.6 fL (8.0-11.0); Monocytes % 8.6; Neutrophils % 62.3; Platelet Count 194 10^3/uL (130-400); RBC 6.17 10^6/uL (4.36-5.78); RDW 13.8 % (11.8-14.1); WBC 7.93 10^3/uL (4.4-10.8)
[2023-08-01 07:06] LABS: Hemoglobin A1C 5.9 % (<5.7)
[2023-08-01 07:36] LABS: Anion Gap 10.6 mmol/L (3-11); BUN 14 mg/dL (7-18); CO2 24.4 mmol/L (21.0-32.0); CREATININE 0.8 mg/dL (0.70-1.30); Calcium 9.3 mg/dL (8.5-10.1); Calculated LDL 156 mg/dL (<100); Chloride 103 mmol/L (98-107); Cholesterol 225 mg/dL (<200); Estimated GFR 101.32 (mL/min/1.73m2); Glucose 111 mg/dL (74-106); HDL Cholesterol 47 mg/dL (40-60); Potassium 4.4 mmol/L (3.5-5.1); Sodium 138 mmol/L (136-145); Triglyceride 110 mg/dL (<150); Vitamin B12 905 pg/mL (193-986)
[2023-08-01 08:17] VITALS: BP 132/66; PULSE 82; RESP 18; TEMP 35.3; O2SAT 96
[2023-08-01] MEDS: Aspirin E.C. 81 MG TABEC PO (08:47)
[2023-08-01] MEDS: levETIRAcetam 500 MG TAB PO ×2 (08:47→20:08)
[2023-08-01] MEDS: Cyanocobalamin 500 MCG TAB 2000 MCG PO (08:47)
[2023-08-01] MEDS: Escitalopram 10 MG TAB PO (08:48)
[2023-08-01] MEDS: Normal Saline Flush 10 ML SYR IVP ×2 (08:49→20:08)
[2023-08-01] MEDS: Insulin Aspart 300 UNITS/3 ML PEN SC (08:52)
[2023-08-01] MEDS: metroNIDAZOLE 0.75% CR. 45 GM TUBE TP (08:55)
--- NOTE | 2023-08-01 09:04 | W.NEUROCONSU ---
Date of service: 08/01/23 Time of Service: 09:04 Assessment and Plan Assessment and plan (1) Left hemiplegia: Status: Acute (2) Acute right MCA stroke: Status: Acute (3) Subdural hematoma, post-traumatic: (4) Memory loss: Status: Acute (5) Vitamin B12 deficiency: Status: Acute (6) Polycythemia: Status: Acute Assessment and plan: #1. Stroke. Mr. Syed was admitted for acute R hemisphere stroke manifested by left hemiparesis and dysarthria. Etiology of his stroke remains unknown, concerning for embolic etiology. New finding of mild polycythemia also noted. Work-up: -TTE with bubble study -Telemetry with extended 30 day cardiac monitoring at discharge Medications: -aspirin 81mg daily for secondary stroke prevention -atorvastatin 80mg daily for secondary stroke prevention Other: -Allow permissive hypertension through first 48 hours and then ok to slowly reduce to goal 120-140/80-90 -Physical therapy for leg weakness, gait training - their assessment is pending -Occupation therapy for upper extremity weakness, activities of daily living - their assessment is pending -Speech therapy has already evaluated and rec'd he could consider outpatient ST if desired -Medical evaluation for new polycythemia evaluation #2. Bilateral SDH. Continue levetiracetam 500mg BID for now. Will plan to wean this off as an outpatient. #3. Memory changes, complicated by TBI, mood disorder, and vitamin B12 deficiency. Will plan to do formal testing as an outpatient. Continue B12 supplement 1000mcg daily. He is already scheduled for an outpatient neurology evaluation on 09/23/23 which he should keep. History of Present Illness History of Present Illness Chief Complaint: stroke Narrative: Handedness: right. HPI: Mr. Syed is a 58 year-old with hypertension, hyperlipidemia, DM2, bilateral subdural hematomas s/p fall, ABHILASH, depression, chronic low back pain, nephrolithiasis, RLS. On 07/31/23 am, Mr. Syed had an acute stroke manifested by left hemiparesis, dysarthria, and ?L hemisensory changes. His initial NIHSS was 8. He was not a candidate for tPA given recent history of SDH. He was not on anti-platelets prior to admission due to recent SDH (but had been prior). He was started on ASA 81mg daily along with atorvastatin and admitted for further work-up as below. He otherwise fell and hit his head in late Oct/early Nov - has frequent falls?? He was admitted to [facility] 05/08/23 with headaches, acute memory changes, and dysarthria found to have acute on chronic L and chronic R subdural hematomas. He underwent bilateral MMA embolization on 05/10/23. He was started on levetiracetam at that time for seizure prevention. He was admitted to [facility] again on 05/30/23-06/01/23 for depression and suicidal thoughts. Psychiatry was consulted and he was started on sertraline. Neurology was also consulted for headaches and memory issues. His headache was treated with an ONB. He was noted to have B12 deficiency (-B12 (05/30/23 at [facility]): 213) for which he was rec'd B12 supplement. TSH was normal. He notes memory issues preceding fall/SDH above and had already been referred to the [facility] Neurology clinic for evaluation - scheduled for later this spring. I previously met Mr. Syed in 2014 also for memory issues and he remembered me unprompted when I saw him today. He is the primary caregiver of his who has Lupus and their adopted son who has autism. Work-up: -CTH (07/31/23): bilateral frontal hygromas. No acute findings. I reviewed these images personally and this is my personal interpretation. -CTA head/neck (07/31/23): congenitally small L vert. Minimal plaque. No significant stenosis. I reviewed these images personally and this is my personal interpretation. -MRI brain w/o (07/31/23): Acute R parietal wedge ischemic stroke. I reviewed these images personally and this is my personal interpretation. -Hgb (07/31/23): 18.1 and repeat on 08/01/23 also 18.1 despite IVF, etc -Tele: no abnormalities -A1c: 5.9 -LDL 156 Review of Systems All systems reviewed & are unremarkable except as noted in HPI and below PFSH All Active Problems (Updated 08/01/23 @ 20:38 by Jackie Andino MD) Vitamin B12 deficiency (Acute) Memory loss (Acute) Polycythemia (Acute) Acute right MCA stroke (Acute) Discharge planning issues (Acute) DVT prophylaxis (Acute) Acute left-sided weakness (Acute) Left hemiplegia (Acute) Major depressive disorder (Chronic) Rosacea (Acute) Local superficial swelling, mass or lump (Acute) Fatigue (Acute) Forgetfulness (Acute) Hyperlipemia (Chronic) Skin lesions (Acute) Face Spondylolisthesis of lumbar region (Chronic 11/16/14) Premature atrial contractions (Chronic 05/17/15) Obstructive sleep apnea syndrome (Chronic) sleeps in recliner Essential hypertension (Chronic 06/01/13) Diabetic peripheral neuropathy associated with type 2 diabetes mellitus (Chronic 10/15/14) Diabetes mellitus (Chronic 10/31/12) Medical History (Updated 08/01/23 @ 20:38 by Jackie Andino MD) Subdural hematoma, post-traumatic Colitis Kidney stones Diarrhea (08/19/12) Microscopic colitis first diagnosed 1995 Bursitis of left shoulder (04/16/17) Surgical History History of appendectomy Status post inguinal hernia repair Repair of inguinal hernia Appendectomy Family History Mother , AGE 78 Diabetes Neoplasm Father , AGE 92 Diabetes Sister No problems noted. Brother No problems noted. Brother No problems noted. Son No problems noted. Daughter No problems noted. 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 Pets and animals: Yes Pets and animals: cat(s) Sexually active: No Do you think of yourself as: straight/heterosexual Current gender identity: male What is your relationship status?: How often do you talk on the phone with friends or family?: twice per week How often do you get together with friends or relatives?: never How often do you attend yarsani or congregational services?: decline to answer Do you belong to any clubs or organized social groups?: no Panel score (0-1 are the most socially isolated patients): 1 NHANES result reviewed/action taken: No What type of physical activity do you participate in: none Duration: 15-30 minutes/day Frequency: daily Mally/Bahai: Baptist Agree to transfusion: No Seatbelt use: always Drive intox or ride w/intox tow motor driver: No Working smoke detector in home: Yes Carbon monox detector in home: Yes Firearms in home: Yes Firearms unloaded and locked: Yes Do you feel safe at home: Yes Do you feel safe in your relationship?: Yes Would you like helpful sources: No Visit Medication and Allergies Active Medications Generic Name Dose Route Start Last Admin Trade Name Freq PRN Reason Stop Dose Admin Acetaminophen 0 mg 07/31/23 16:24 Acetaminophen 325 Mg Tab PO Q4H PRN PRN Al Hydrox/Mg Hydrox/Simethicone 30 ml 07/31/23 16:24 Mylanta Suspension 30 Ml Cup PO Q2H PRN PRN Aspirin 81 mg 08/01/23 08:30 08/01/23 08:47 Aspirin E.C. 81 Mg Tabec PO 81 mg DAILY RUBENS Administration Atorvastatin Calcium 80 mg 07/31/23 20:00 07/31/23 20:26 Atorvastatin 40 Mg Tab PO 80 mg QPM RUBENS Administration Cyanocobalamin 2,000 mcg 08/01/23 08:30 08/01/23 08:47 Cyanocobalamin 500 Mcg Tab PO 2,000 mcg DAILY RUBENS Administration Dextrose 0 gm 07/31/23 16:24 Glucose Oral Gel 15 Gm/37.5 Gm Tube PO DIRECTED PRN Dextrose/Water 0 gm 07/31/23 16:24 Dextrose 50%-Water 25 Gm/50 Ml Syr IVP DIRECTED PRN Docusate Sodium 100 mg 07/31/23 16:24 Docusate Sodium 100 Mg Cap PO TID PRN PRN Escitalopram Oxalate 10 mg 08/01/23 08:30 08/01/23 08:48 Escitalopram 10 Mg Tab PO 10 mg DAILY RUBENS Administration Gabapentin 1,200 mg 07/31/23 22:00 07/31/23 22:48 Gabapentin 600 Mg Tab PO 1,200 mg HS RUBENS Administration Heparin Sodium (Porcine) 5,000 units 07/31/23 18:00 08/01/23 02:44 Heparin 5,000 Units/Ml Vial SC 5,000 units Q8H RUBENS Administration Ringer's Solution 1,000 mls @ 125 mls/hr 07/31/23 20:45 08/01/23 00:00 IV 125 mls/hr INFUSION RUBENS Administration IV Miscellaneous Supplies 1 each 07/31/23 08:45 Iv Access IV DIRECTED [facility] Insulin Aspart 0 units 07/31/23 17:00 08/01/23 08:52 Insulin Aspart 300 Units/3 Ml Pen SC 1 unit 0800,1200,1700,2200 [facility] Administration Protocol Iohexol 85 ml 07/31/23 10:00 07/31/23 10:01 Omnipaque 350 Mg/Ml 500 Ml Btl-Imaging Package IJ 08/30/23 23:59 85 ml DIRECTED RUBENS Administration Levetiracetam 500 mg 07/31/23 20:00 08/01/23 08:47 Levetiracetam 500 Mg Tab PO 500 mg BID RUBENS Administration Magnesium Hydroxide 30 ml 07/31/23 16:24 Milk Of Magnesia 30 Ml Cup PO DAILY PRN PRN Metronidazole 0 gm 07/31/23 20:00 08/01/23 08:55 Metronidazole 0.75% Cr. 45 Gm Tube TP 1 applic BID RUBENS Administration Miconazole Nitrate 0 gm 07/31/23 16:24 Miconazole 2% Topical Powder 85 Gm Btl TP BID PRN PRN Polyethylene Glycol 17 gm 07/31/23 16:24 Polyethylene Glycol 3350 17 Gm Packet PO DAILY PRN PRN Constipation Sodium Chloride 0 ml 07/31/23 08:40 Normal Saline Flush 10 Ml Syr IVP PRN PRN Sodium Chloride 0 ml 07/31/23 20:00 08/01/23 08:49 Normal Saline Flush 10 Ml Syr IVP 20 ml BID RUBENS Administration Sodium Chloride 0 ml 07/31/23 08:40 Normal Saline 10 Ml Vial IJ DIRECTED PRN Sodium Chloride 50 ml 07/31/23 10:00 07/31/23 10:00 Normal Saline - Diluent 50 Ml Vial IJ 50 ml .FOR DI USE RUBENS Administration Allergies Penicillins Allergy (Mild, Verified 07/31/23 09:09) SKIN RASH Exam Narrative Exam Narrative: Physical Exam: Gen: Patient of apparent stated age, NAD Head and face: no facial or cranial abnormalities Neck: Supple, no meningismus, no occipital tenderness CV: + S1, S2, RRR, no murmur Resp: CTA B/L Abd: soft, nontender, nondistended Ext: No edema. No clubbing or cyanosis. No bony deformity. Neuro Exam: Language: fluency, naming, repetition, and comprehension intact; Mental Status: AAOx3, current events intact, fund of knowledge intact; Speech: no dysarthria Cranial nerves: Funduscopy: not performed CN II: visual ramirez intact CN III, IV, : extraocular movements intact, no nystagmus, pupils symmetric and reactive to light CN V: face sensation intact to LT and PP CN VII: no facial asymmetry noted CN VIII: hearing intact bilaterally CN IX, X: palate rises symmetrically CN XI: trapezius/SCM 5/5 bilaterally CN XII: protrudes tongue symmetrically Sensory: intact to LT, PP in all extremities Motor: bulk and tone intact. Fine motor movements reduced on the left. No pronator drift. Strength 5/5 throughout including the deltoids, biceps, triceps, wrist extensors, hip flexors, knee flexors, knee extensors, ankle flexors, and ankle extensors except 4+/5 LUE proximally and 4-/5 distally in the hand. Left leg is now full strength. Reflexes: hyporeflexic throughout at the biceps, triceps, brachioradialis, patella, and achilles tendons bilaterally; toes down going bilaterally; Coordination: FTN and HTS intact bilaterally Gait: not seen Results Last Vital Signs Temp 95.5 F L 08/01/23 08:17 Pulse 82 08/01/23 08:17 Resp 18 08/01/23 08:17 BP 132/66 08/01/23 08:17 Pulse Ox 96 08/01/23 08:17 Labs 08/01/23 06:33 08/01/23 06:33 Labs: Laboratory Results - last 24 hr 07/31/23 07/31/23 08/01/23 09:20 12:16 06:33 WBC 7.51 7.93 RBC 6.26 H 6.17 H Hgb 18.1 H 18.1 H Hct 54.5 H 54.0 H MCV 87 88 MCH 28.9 29.3 MCHC 33.2 33.5 RDW 13.7 13.8 Plt Count 201 194 MPV 10.3 10.6 Immature Gran % 0.4 0.3 Neutrophils % 63.2 62.3 Lymphocytes % 25.0 25.7 Monocytes % 8.4 8.6 Eosinophils % 2.3 2.5 Basophils % 0.7 0.6 Nucleated RBC % 0.0 0.0 Absolute Neutrophils 4.75 4.94 Absolute Lymphocytes 1.88 2.04 Absolute Monocytes 0.63 0.68 Absolute Eosinophils 0.17 0.20 Absolute Basophils 0.05 0.05 RBC Morphology Normal PT 10.4 INR 1.0 APTT 25.9 Sodium 139 138 Potassium 4.3 4.4 Chloride 103 103 Carbon Dioxide 27.6 24.4 Anion Gap 8.4 10.6 BUN 16 14 Creatinine 0.9 0.8 Est GFR (CKD-EPI 2020) 97.78 101.32 Glucose 125 H 111 H Hemoglobin A1c 5.9 H Calcium 9.3 9.3 Magnesium 2.1 2.0 Total Bilirubin 0.8 AST 16 ALT 37 Alkaline Phosphatase 44 L Troponin I < 50 < 50 Total Protein 7.5 Albumin 3.9 Triglycerides 110 Total Cholesterol 225 H LDL Cholesterol, Calc 156 H HDL Cholesterol 47 Vitamin B12 905
--- NOTE | 2023-08-01 09:32 | W.SPSTE ---
Date of service: 08/01/23 Time of Service: 08:00 Subjective Clinical (Bedside) Swallow Evaluation Speech Language Pathology Referred by: Dr. Lema Referral Type: Clinical Swallow Evaluation; Dysarthria Evaluation Reason for Referral/HPI: Jose Raul Syed is a 58 yo male with PMH significant for hx SDH in April 2023 who was admitted with L weakness and dysarthria. MRI revealed new R parietal CVA. He also reports at baseline he has been experiencing mild cognitive impairment and word finding issues. He states he has undergone neuropsych assessment, with plan for re-assessment in September. He expresses, I have a family history of alzheimers and think that's what it is. SOLAR INSTALLATION TECHNICIAN IMPRESSIONS & RECOMMENDATIONS: Jose Raul demonstrates WNL oral pharyngeal swallow function and motor speech production. There is no evidence of residual lingual or labial weakness or discoordination. He did not demonstrate any issues with word finding in conversation or within a picture description task (cookie theft). While Jose Raul does not demonstrate any acute issues with swallowing/speech, education was provided re: outpatient SOLAR INSTALLATION TECHNICIAN services- including strategy training and exercises for longstanding word retrieval and memory complaints. He is interested in this, and requested a card which will be provided later today. He expresses plan to request referral from his PCP and/or neurologist. Jose Raul verbalized/demonstrated standard swallowing precautions as outlined below, and is independent with these recommendations. FURTHER SOLAR INSTALLATION TECHNICIAN SERVICES: No further acute SOLAR INSTALLATION TECHNICIAN services indicated Upon Discharge, outpatient consult may be beneficial for issues that have been longstanding x5 years, prior to current stroke. Card provided to patient and he will discuss referral with MD. Diet Recommendations: SOLIDS- Regular L7 LIQUIDS- Thin MEDICATIONS- Whole with sip liquid SUPERVISION- Independent STRATEGIES: Upright 90 degrees with all PO Remain upright for at least 30 min after eating Oral Care BID Small/slow bites and sips SUBJECTIVE: Patient received alert/awake, conversant, agreeable to evaluation Pain Reported? None Baseline Swallow Function: Patient denies swallowing difficulty prior to admission and eats a regular diet at baseline. PO Trials Assessed: Thin Liquids 6 Soft & Bite Size Solid (Eggs, fruit) Oral Mechanism Examination: Dentition is WFL. Oral mucosa is WFL. Cranial Nerve Assessment: CN V ? Trigeminal Facial Sensation WNL Jaw Strength/ROM WNL ?WNL CN VII- Facial WNL labial ROM, strength, coordination. WNL lingual sensation WNL CN IX ? Glossopharyngeal WNL palatal elevation with phonation. No evidence of nasal emissions WNL CN X ? Vagus WNL Vocal quality and volume. Strong/sharp volitional cough WNL CX XII ? Hypoglossal WNL lingual ROM, strength, coordination WNL Oral Phase Findings: WFL Pharyngeal Phase Findings: WFL ? [place] Swallow Protocol Results: PASS ASSESSMENT: Further SOLAR INSTALLATION TECHNICIAN Services not indicated. Recommendation at Discharge: SOLAR INSTALLATION TECHNICIAN Outpatient Services as discussed above Suggested Referrals: N/A Recommended Procedures: N/A Recommendations: ? SOLIDS: 7-Regular Solids LIQUIDS: 0-Thin Liquids MEDICATIONS: Whole with 0-Thin Liquids RISK MANAGEMENT: Upright for all PO intake. Oral hygiene BID/2x per day Level of Assistance/Supervision: Independent Strategies/Adaptations/Assistive Equipment: Slow rate of intake, Swallow between bites Posture/Positioning Needs: Maintain upright position at least 30 minutes after meals Education Provided to: Nursing, Patient Topics Addressed: anatomy/physiology of swallowing mechanism, role of ST, options for outpatient tx PLAN: No further acute needs SOLAR INSTALLATION TECHNICIAN CPT Code: 62802 Clinical Swallowing Evaluation TOTAL TIME: 30 Minutes
--- NOTE | 2023-08-01 10:41 | DI.US_ITS ---
APPROVED REPORT EXAM: Comprehensive 2D, Doppler, and color-flow Echocardiogram Patient Location: In-Patient Room/Bed: 217 Reexaminer: Jasmin Vazquez RDCS Rhythm: NSR Indications: suspected acute CVA. Echo Enhancing Agent Agent(s) / Amount(s) Used: Agitated Saline 19.0 cc Comments: Two injections of agitation saline was used at rest and with valsalva (8.5 cc of saline w/ 0.5 cc of air). Other Information Study Quality: Fair Conclusion Normal chamber sizes Normal LV function,EF 60-65%. Normal RV function. 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 DREAD correlation suggested. Anatomically normal valves.No significant regurgitation or stenosis No pericardial effusion. Wall motion Left Ventricle The left ventricle is normal size. The left ventricular systolic function is normal. The left ventric ular ejection fraction is within the normal range. Mild basal septal hypertrophy is present. There is normal LV segmental wall motion. The left ventricular diastolic function is normal. There is no vent ricular septal defect visualized. No left ventricle thrombus noted on this study. LVEF is 60-65%. Right Ventricle The right ventricle is normal size. The right ventricular systolic function is normal. There is sarai l right ventricular wall thickness. Atria The left atrium size is normal. The right atrium size is normal. Saline bubble contrast intravenous i njection demonstrates PFO. Aortic Valve Aortic valve is trileaflet. The aortic valve is minimally thickened. There is no aortic valvular sten osis. No aortic regurgitation is present. Mitral Valve Mitral valve leaflets appear mildly thickened and myxomatous- especially the anterior leaflet. No monika dence of mitral valve stenosis. Trivial mitral regurgitation. Mild mitral systolic anterior motion. Tricuspid Valve The tricuspid valve is normal in structure. There is no tricuspid valve stenosis. Trace tricuspid reg urgitation. The RVSP is normal at 24 mmHg. Pulmonic Valve Pulmonic valve is grossly normal in structure. There is no pulmonic valvular stenosis. Trace pulmonic regurgitation. Great Vessels The aortic root is normal in size. The pulmonary artery is normal. The ascending aorta is normal in s ize. Aortic arch is normal in caliber. IVC is normal in size and collapses >50% with inspiration. Pericardium There is no pericardial effusion. 2D Dimensions IVSD d PLAX 1.19 cm M: 0.6-1.2 Ao Root d 3.27 cm M: 3.1 - 3.7 LVPW d PLAX 1.12 cm M: 0.6 - 1.2 Ao Asc Diam d 3.24 cm M: 2.6 - 3.4 LVID d PLAX 3.59 cm M: 4.2 - 5.8 Prox Ao Arch 2.9 cm LVDs 2.31 cm M: 2.5 - 4.0 IVC Diam exp d SLAX 1.9 cm LV EF Teichholz 66.1 % FS 35.65 % LV EDV (Teich) 54.0 mL LV ESV (Teich) 18.3 mL M-Mode TAPSE 2.43 cm (M/F) >1.7 Auto EF LV EDV A4C 102.6 mL LV EDV A2C 85.0 mL LV EDV BP 92.8 mL LV ESV A4C 48.6 mL LV ESV A2C 34.1 mL LV ESV BP 40.1 mL LVEF(%) A4C 52.6 % LVEF(%) A2C 59.9 % LVEF(%) BP 56.8 % LV SV A4C 54.0 ml LV SV A2C 50.9 ml LV SV BP 52.7 ml LV CO A4C 4.5 L/min LV CO A2C 4.1 L/min LV CO BP 4.3 L/min HR A4C 82.76 BPM HR A2C 79.65 BPM LV EDV Index (BP) LV Strain Long Pk Overal Avg (s) 17.15 LA Volume LA Length A4C 4.7 cm LA Length A2C 4.8 cm LA Area A4C s 15.30 cm2 LA Area A2C s 13.98 cm2 LA Vol A4C A-L 42.02 mL LA Vol A2C A-L 34.75 mL LA Vol Biplane A-L 38.4 mL LA Vol/BSA A4C A-L LA Vol/BSA A2C A-L LA Vol/BSA BP A-L 20.2 mL/m2 LA Vol A4C MOD 38.6 mL LA Vol A2C MOD 35.8 mL LA Vol BP MOD 37.1 mL RA Volume RA Area A4C 17.2 cm2 RA ESV A4C (A-L) 48.5mL RA Vol/BSA A4C A-L RA Length A4C 5.2 cm RA ESV A4C (MOD) 45.1mL LV Diastology MV E' medial 0.055 (>0.07 m/s) MV E Vmax 0.53 (0.4-1.3 m/s) MV E/E' MED 9.69 (<14) MV A Vmax 0.50 (0.4-1.3 m/s) MV E' lateral 0.075 (>0.1 m/s) E/A Ratio 1.1 MV E/E' LAT 7.07 (<14) MV E' Average 0.065 m/s MV E/E'(average) 8.18 Aortic Valve LVOT Vmax 1.12 m/s LVOT Peak Grad 5.0 mmHg LVOT VTI 0.205 m LVOT Mean Grad 3.2 mmHg Mitral Valve MV DT 201 (160-240 msec) MV Vmax TIPS 0.67 m/s MV Mean Grad 0.8 (<2mmHg) MV VTI 0.138 m Pulm Vein s 0.56 m/s Pulm Vein d 0.35 m/s Pulm Vein a 0.31 m/s Pulmonary Valve RVOT Vmax 0.63 m/s RVOT Peak Gr. 1.6 mmHg RVOT VTI 0.098 m RVOT Mean Gr. 0.8 mmHg Tricuspid Valve RA Pressure 3.00 mmHg TR Vmax 2.30 m/s TV S' 0.12 m/s TR Peak Grad 21.1 mmHg RVSP (TR) 24.2 mmHg
[2023-08-01 11:18] VITALS: BP 132/77; PULSE 82; RESP 16; TEMP 36.3; O2SAT 96
--- NOTE | 2023-08-01 11:53 | OT.INIE ---
Occupational Therapy Notes Inpatient Occupational Therapy Evaluation Date: 08/01/23 Referring Doctor:Judy Lema MD OT Orders: Non urgent Precautions: Fall, Standard, Full PATIENT PROFILE/ADMITTING DIAGNOSIS: Pt is a 58 year old male who was admitted to [facility] for the following dx of L-sided weakness, essential HTN, DM, ABHILASH, and hyperlipidemia. Past Medical History: All Active Problems (Updated 07/31/23 @ 13:11 by Judy Lema MD) Discharge planning issues (Acute) DVT prophylaxis (Acute) Acute left-sided weakness (Acute) Left hemiplegia (Acute) Major depressive disorder (Chronic) Rosacea (Acute) Local superficial swelling, mass or lump (Acute) Fatigue (Acute) Forgetfulness (Acute) Hyperlipemia (Chronic) Skin lesions (Acute) FaceSpondylolisthesis of lumbar region (Chronic 11/16/14) Premature atrial contractions (Chronic 05/17/15) Obstructive sleep apnea syndrome (Chronic) sleeps in reclinerEssential hypertension (Chronic 06/01/13) Diabetic peripheral neuropathy associated with type 2 diabetes mellitus (Chronic 10/15/14) Diabetes mellitus (Chronic 10/31/12) Medical History Colitis Kidney stones Diarrhea (08/19/12) Microscopic colitis first diagnosed 1995 Bursitis of left shoulder (04/16/17) Surgical History History of appendectomy Status post inguinal hernia repair Repair of inguinal hernia Appendectomy Social History/Home Situation: Pt lives in a private home with his 2 children and . He notes that his is in the end stages of her lupus and states that he needs to be able to help her transfer and help the kids. SUBJECTIVE: Pt states that he would like to be stronger to be able to return home as he is the caregiver for his family. He states that he is feeling better today. OBJECTIVE: General Observation: Pleasant with notable (L) UE/LE weakness, delayed motor movements for gross motor facilitation. Mental Status: A&Ox4 Pain: no specific c/o pain ROM: RUE AROM WFL L UE AROM WFL but delayed motor response STRENGTH: RUE 5/5 throughout LUE 4-/5 throughout FUNCTIONAL MOBILITY/ADLS: BATHING- NT DRESSING Dressing UE Min (A) don and doffing hospital gown Dressing LE Able to reach his (B) UE, weakness in (L) UE causes increased performance time. EATING sitting in bed (I) with hand to mouth and appropriate use of silverware and hand placement. Therapeutic Exercise [id number]: OT had pt perform AROM/AAROM exercises for the (L) UE with vc for appropriate use of placement of the UE, ROM in the frontal and saggital planes and crossing midline for executive function and planning. BALANCE: Static sitting Good Dynamic Sitting Good INFORMED CONSENT/EDUCATION: Pt instructed in purpose of OT Consult and plan of care. ASSESSMENT: Patient is a 58-year-old male referred to occupational therapy services with diagnosis of L-sided weakness, essential HTN, DM, ABHILASH, and hyperlipidemia.. Patient presents with clinical signs and symptoms consistent with dx, as demonstrated by the following impairment level findings/functional limitations: Weakness in the (L) UE/LE, impairments in ADL/IADL and leisure activities, decreased strength, decreased gross and fine motor control of (L) UE, decreased functional activity tolerance, impairments in functional use of hand including lifting, twisting, pushing, pulling. Patient is assessed as a Moderate 33611 complexity based on the following: History: see above Examination: see functional limitations Presentation: evolving Decision Making: moderate complexity GOALS Goals x1 week 1. Transfers (I) 2. Dressing seated (I) 3. Bathing standing at sink (I) 4. Toileting (I) 5. Eating (I) PLAN OF CARE/TREATMENT PLAN: 1x/day, 5 days/ week x 1week Initiate Occupational Therapy Services for bathing, dressing, grooming, toileting, eating, transfer training. DISCHARGE RECOMMENDATIONS [facility] or skilled stroke rehabilitation program when medically cleared per MD. TREATMENT TIME/MINUTES/CODES 48778, [id number], 20 minutes [facility] [place], vT
--- NOTE | 2023-08-01 12:47 | PDOC.CMIN ---
Date of service: 08/01/23 Time of Service: 12:47 Care Management Initial Assmt Initial Assessment REASON FOR HOSPITALIZATION:: Acute CVA PREVIOUS FUNCTIONAL STATUS/SOCIAL/FAMILY SUPPORTS:: Jose Raul lives in [place] with his , Meeta and two children who are 12 (daughter) and 15 (son). He is the primary caregiver for his who has lupus. He also manages the children and the household. His sister in law is supportive, and will help when needed. He is independent at baseline. CURRENT FUNCTIONAL STATUS:: Jose Raul was sitting up on the edge of the bed when CM met with him. He had just worked with PT, who stated that he has made a remarkable improvement from yesterday, and they are now recommending that he return home with HH PT/OT vs outpatient. Jose Raul stated that he would not have gone to a SNF because he is the primary caregiver for his and children, and cannot be away from home for long. He is hoping to be able to return home tomorrow. CM will continue to follow. ADVANCE DIRECTIVES:: Not on file. Has patient been provided with info about the portal/API?: Yes Did the patient sign up for the portal?: No CODE STATUS:: Full Code INSURANCE COVERAGE / FINANCIAL ISSUES:: SARAH CURRENT HOME/COMMUNITY SERVICES/EQUIPMENT:: unknown PRIMARY CARE PHYSICIAN:: Toy Kelly POTENTIAL DISCHARGE NEEDS:: Evaluations for further needs, potential SNF vs acute rehab, follow up appointments. PATIENT/FAMILY EDUCATION NEEDS:: Review discharge instructions and limitations, discussion of self care needs including ask me three. ANTICIPATED BARRIERS TO DISCHARGE:: None identified. TRANSPORTATION:: To be determined by disposition. PLAN:: Jose Raul has been evaluated by PT, OT and ST. Per PT, he has made big improvements overnight and they are now recommending HH PT/OT vs outpatient PT/OT. His sister in law will drive him home via private vehicle. He will follow up with his PCP and discharge plan of care. CM will continue to follow. PFSH All Active Problems (Updated 08/01/23 @ 12:43 by Jackie Andino MD) Polycythemia (Acute) Acute right MCA stroke (Acute) Discharge planning issues (Acute) DVT prophylaxis (Acute) Acute left-sided weakness (Acute) Left hemiplegia (Acute) Major depressive disorder (Chronic) Rosacea (Acute) Local superficial swelling, mass or lump (Acute) Fatigue (Acute) Forgetfulness (Acute) Hyperlipemia (Chronic) Skin lesions (Acute) Face Spondylolisthesis of lumbar region (Chronic 11/16/14) Premature atrial contractions (Chronic 05/17/15) Obstructive sleep apnea syndrome (Chronic) sleeps in recliner Essential hypertension (Chronic 06/01/13) Diabetic peripheral neuropathy associated with type 2 diabetes mellitus (Chronic 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 Brother No problems noted. Brother No problems noted. Son No problems noted. Daughter No problems noted. 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 Pets and animals: Yes Pets and animals: cat(s) Sexually active: No Do you think of yourself as: straight/heterosexual Current gender identity: male What is your relationship status?: How often do you talk on the phone with friends or family?: twice per week How often do you get together with friends or relatives?: never How often do you attend adventism or congregational services?: decline to answer Do you belong to any clubs or organized social groups?: no Panel score (0-1 are the most socially isolated patients): 1 NHANES result reviewed/action taken: No What type of physical activity do you participate in: none Duration: 15-30 minutes/day Frequency: daily Mally/Nondenominational: Latter day Agree to transfusion: No Seatbelt use: always Drive intox or ride w/intox service car driver: No Working smoke detector in home: Yes Carbon monox detector in home: Yes Firearms in home: Yes Firearms unloaded and locked: Yes Do you feel safe at home: Yes Do you feel safe in your relationship?: Yes Would you like helpful sources: No SDOH(Care Management) Screening Will the Patient Participate in the Screening?: Yes Do you worry about having a steady place to live?: no In the past 12 months, have you had to go without electric, gas, oil or water in your home?: no Have you or anyone in your house had to go without enough food to eat?: no Has lack of transportation kept you from medical appointments or from doing things needed for daily living?: no Has anyone in your support network made you feel unsafe for any reason?: no
--- NOTE | 2023-08-01 13:43 | PT.INTREAT ---
PT Notes Visit Reasons: Acute CVA Physical Therapy Inpatient Treatment Note Date: 08/01/2023 Precautions: Fall. Standard. Activity as tolerated. Subjective: Excited that motor control on L UE and LE significantly came back snce last seen yesterday. Happy that he can now move his L arm much better, his L LE almost as stron as the R LE. Politely declined acute rehab facility recommendation. States that his family needs him and he does not want to go far from them. He said he will consider outpatient PT at [facility] as he lives in [place]. Complained of being tired after this afternoon's walk. Objective: General Observation: Patient resting in bed. Minimal swelling noted in L hand. Mental Status: Alert and oriented as to person, place, time, and purpose. Able to pay attention, focus, and respond appropriately. Pain: Zak reported Vital Signs: Closely monitored by nursing staff ROM: Right Upper Extremity: Shoulder Flexion WFL. Shoulder abduction WFL. Elbow flexion WFL. Wrist flexion WFL. Functional opening and closing of hand WFL. Left Upper Extremity: Shoulder Flexion allows up to 75% of AROM. Shoulder abduction allows up to 75% of AROM. Elbow flexion WFL. Wrist flexion WFL. Functional opening and closing of hand WFL. Right Lower Extremity: Hip flexion WFL. Hip abduction WFL. Knee flexion WFL. Ankle dorsiflexion WFL. Ankle plantarflexion WFL. Left Lower Extremity: Hip flexion WFL. Hip abduction WFL. Knee flexion WFL. Ankle dorsiflexion WFL. Ankle plantarflexion WFL. Strength: Right Upper Extremity: Shoulder flexors 4/5. Shoulder abductors 4/5. Elbow flexors 5/5. Elbow extensors 4/5. Coil Assembler strong. Left Upper Extremity: Shoulder flexors 3-/5. Shoulder abductors 3--/5. Elbow flexors 4-/5. Elbow extensors 4-/5. Coil Assembler strong. Right Lower Extremity: Hip flexors 4/5. Hip abductors 4/5. Knee flexors 4/5. Knee extensors 4/5. Ankle dorsiflexors 4/5. Ankle plantarflexors 4/5. Left Lower Extremity: Hip flexors 4-/5. Hip abductors 4-/5. Knee flexors 4-/5. Knee extensors 4-/5. Ankle dorsiflexors 4--/5. Ankle plantarflexors 4-/5. Bed Mobility/Transfers: Minimal cueing provided for use of B hands as needed for support, movement sequence, AD management, and posture to reduce fall risk and minimize pain report Rolling independent Supine to sit independent Sit to supine independent Sit to stand standby assist without AD Stand to sit standby assist without AD Gait: Facilitated safe and correct performance of level surface ambulation utilizing no assistive device covering a distance 100 feet +100 feet using no assistive device with reciprocal swing through heel-toe gait pattern. Arm swing on the left decreased. Complained of fatigue and dizziness at end of the first 100 feet, subsided with seated rest. No LOB. Mild path deviation. Balance: Static Sitting: Normal Dynamic Sitting: Normal Static Standing: Good Dynamic Standing: Good Special Tests: Mobility Limitations Standardized Measure [facility] AM-PAC 6 clicks Basic Mobility Inpatient Short Form: Raw Score: 23 CMS Score: 11% deficit Informed Consent/Education: Patient was instructed in purpose of PT consult and plan of care. Agreeable to proceed with established PT POC to achieve personal goals. ASSESSMENT: Spontaneous motor recovery on L UE/LE remarkable. Activity tolerance remains limited. Patient presents with clinical signs and symptoms consistent with current/admitting diagnoses that have resulted to mobility limitations, gait instability, generalized weakness, and overall ADL decline as demonstrated by the following impairment level findings: 1. Decreased strength to L UE/LE major muscle groups 2. Impaired sitting/standing balance 3. Impaired activity tolerance Impairments are contributing to the following functional limitations: 1. Decline in transfer skills 2. Difficulty with ambulation without assistive device and physical assistance 3. Increased completion time for mobility ADL performance 4. Increased risk for falls 5. Difficulty with managing steps alone safely Plan of Care/Treatment Plan: 1-2x/day, 7 days/week x 1 week. Plan of care has been reviewed with the COMMERCIAL REAL ESTATE AGENT providing the service under Physical Therapy direction. Initiate Physical Therapy intervention for pain management as needed, strengthening, bed mobility, transfers, gait, stairs, balance training, and use of assistive device. DISCHARGE RECOMMENDATIONS: [] Home with no services [] [X] Home with services. Patient will benefit from home health PT services in order to progress mobility level using least restrictive assistive ambulatory device, assess home safety, identify additional equipment needs, and establish a functional maintenance program that will increase ability of patient to remain at home. [] Home with outpatient PT [] [] SNF for continued rehabilitation [] [] [facility] [] [] SNF versus LTC based on ability to participate and progress [] TREATMENT CODE/TIME: 62182 x 23 minutes for 2 units (13:43-14:06)
--- NOTE | 2023-08-01 13:54 | PHACLINREV_ITS ---
Pharmacy Admission Review Admission Clinical Review Admission Pharmacy Review: Polycythemia (Acute) Acute right MCA stroke (Acute) Discharge planning issues (Acute) DVT prophylaxis (Acute) Acute left-sided weakness (Acute) Left hemiplegia (Acute) Penicillins Allergy (Mild, Verified 07/31/23 09:09) SKIN RASH Resuscitation Status Full Code Height 5 ft 6 in Weight 84.5 kg Pharmacy Admission Review Renal Dosing Renal Dosing: BUN 14 mg/dL (7-18) 08/01/23 06:33 Creatinine 0.8 mg/dL (0.70-1.30) 08/01/23 06:33 Medications needing adjustments: Reviewed (CrCl 80.08 mL/min) Anticoagulation Anticoagulation: Hgb 18.1 g/dL (13.5-17.5) H 08/01/23 06:33 Hct 54.0 % (40.0-50.0) H 08/01/23 06:33 Plt Count 194 10^3/uL (130-400) 08/01/23 06:33 INR 1.0 (0.9-1.1) 07/31/23 09:20 Creatinine 0.8 mg/dL (0.70-1.30) 08/01/23 06:33 DVT Prophylaxis: Reviewed Medications: Heparin Relevant Labs Relevant Labs: Sodium 138 mmol/L (136-145) 08/01/23 06:33 Potassium 4.4 mmol/L (3.5-5.1) 08/01/23 06:33 Chloride 103 mmol/L (98-107) 08/01/23 06:33 Magnesium 2.0 mg/dL (1.8-2.4) 08/01/23 06:33 Electrolytes, C-Reactive P, ESR: Reviewed (Hgb 18.1) DM Control DM Control: Glucose 111 mg/dL (74-106) H 08/01/23 06:33 Hemoglobin A1c 5.9 % (<5.7) H 08/01/23 06:33 Finger Stick Blood Glucose 124 1240 Finger Stick Blood Glucose 124 1115 Finger Stick Blood Glucose 145 0852 Finger Stick Blood Glucose 145 0838 DM Control: Reviewed Insulin Dosing, Diabetic Medication: Has order for SS insulin Cardiac Review Cardiac Review: Troponin I < 50 ng/L (< or =60) 07/31/23 12:16 BP, HR, EF%: Reviewed (HR/BP WNL) QTc Review QTc: Reviewed (443 07/31/23) IV to PO Switch IV Medications: Reviewed Home Meds Home Med List reviewed: Reviewed Relevent Home Meds Not ordered & why?: On home med list but not ordered: Jard iance (on hold per H+P) and lisinopril (on hold per H+P) Current Meds Current Medication Order Review: Reviewed
[2023-08-01] MEDS: Polyethylene Glycol 3350 17 GM PACKET PO (14:43)
[2023-08-01] MEDS: Docusate Sodium 100 MG CAP PO (14:43)
[2023-08-01] MEDS: Acetaminophen 325 MG TAB PO (14:47)
[2023-08-01 15:21] VITALS: BP 127/84; PULSE 82; RESP 17; TEMP 36.7; O2SAT 97
--- NOTE | 2023-08-01 18:09 | PGE_ITS ---
Date of Service Date of service: 08/01/23 Time of Service: 18:09 Assessment and Plan Assessment and plan (1) Acute right MCA stroke: Status: Acute Assessment and plan: Residual deficit now only paresthesias, weakness, slight loss in dexterity of the LUE. 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 Await echo read. Seen by neurology. Continue PT/OT speech. Monitor on tele. Neurochecks. Continue baby aspirin and statin. Does have prediabetes by A1C. Permissive hypertension. Will need extended cardiac monitoring on discharge. (2) Polycythemia: Status: Acute Assessment and plan: Check erythropoetin level. Does have ABHILASH which could explain this. (3) Essential hypertension: Status: Chronic Assessment and plan: Hold lisinopril in light of #1. (4) Diabetes mellitus: Status: Chronic Assessment and plan: Hold oral agents and cover with SSI. Qualifiers: Diabetes mellitus type: type 2 Diabetes mellitus terminal makeup operator insulin use: without mcfp use Diabetes mellitus complication status: without complication Qualified Code(s): E11.9 - Type 2 diabetes mellitus without complications (5) Diabetic peripheral neuropathy associated with type 2 diabetes mellitus: Status: Chronic Assessment and plan: Continue gabapentin (6) Obstructive sleep apnea syndrome: Status: Chronic Assessment and plan: Will inquire if the patient uses a CPAP/BiPAP machine (7) Hyperlipemia: Status: Chronic Assessment and plan: Continue atorvastatin 80 mg PO HS. Qualifiers: Hyperlipidemia type: mixed hyperlipidemia Qualified Code(s): E78.2 - Mixed hyperlipidemia (8) DVT prophylaxis: Status: Acute Assessment and plan: SC heparin (9) Discharge planning issues: Status: Acute Assessment and plan: Full code The patient would not accept a blood transfusion due to his jehovah's witness beliefs. Anticipate discharge home tomorrow with home health services. Discussed with Dr Andino. Subjective Subjective Interval history since last seen: Doing much better today. Able to move his L hand a lot better, though still having a little trouble with the utensils. Still having some tingling in the left hand. LLE is completely back to normal. Speech is completely back to normal. Was able to walk without assistive devices today. Did get a little dizzy while walking, but states that was his regular vertigo and subsided quickly. Denied CP, SOB, n/v. States he will be going home rather than acute rehab. Exam Narrative Exam Narrative: General: A pleasant middle-aged male who is A&Ox3, speech much more fluent and clear Neurological: A&Ox3, CNII-XII intact, sensory: paresthesias LUE, otherwise intact, 5/5 strength throughout HEENT: Atraumatic, normocephalic, EOMI, MMM, Cardiovascular: RRR, no m/r/g Lungs: CTAB Gastrointestinal: soft, nontender, nondistended Extremities: no edema BLEs, 2+ pedal pulses B Objective Last Vital Signs Temp 36.7 C 08/01/23 15:21 Pulse 82 08/01/23 15:21 Resp 17 08/01/23 15:21 BP 127/84 08/01/23 15:21 Pulse Ox 97 08/01/23 15:21 Laboratory Results - last 24 hr 07/31/23 08/01/23 09:20 06:33 WBC 7.93 RBC 6.17 H Hgb 18.1 H Hct 54.0 H MCV 88 MCH 29.3 MCHC 33.5 RDW 13.8 Plt Count 194 MPV 10.6 Immature Gran % 0.3 Neutrophils % 62.3 Lymphocytes % 25.7 Monocytes % 8.6 Eosinophils % 2.5 Basophils % 0.6 Nucleated RBC % 0.0 Absolute Neutrophils 4.94 Absolute Lymphocytes 2.04 Absolute Monocytes 0.68 Absolute Eosinophils 0.20 Absolute Basophils 0.05 Sodium 138 Potassium 4.4 Chloride 103 Carbon Dioxide 24.4 Anion Gap 10.6 BUN 14 Creatinine 0.8 Est GFR (CKD-EPI 2020) 101.32 Glucose 111 H Hemoglobin A1c 5.9 H Calcium 9.3 Magnesium 2.0 Triglycerides 110 Total Cholesterol 225 H LDL Cholesterol, Calc 156 H HDL Cholesterol 47 Vitamin B12 905 Path Cons Comment Objective Narrative Objective Narrative: Echo: done, read pending Time Spent with Patient Time Spent with Patient: 35-49 minutes Time was spent: preparing to see the patient(eg.review tests), obtaining and/or reviewing separately otained hiistory, ordering medications,tests, procedures, referring, communicating with other health laboratory animal care veterinarian, indepentently interpreting results, counseling the patient and care coordination
[2023-08-01 20:05] VITALS: BP 126/86; PULSE 87; RESP 18; TEMP 36.9; O2SAT 96
[2023-08-01] MEDS: Atorvastatin 40 MG TAB 80 MG PO (20:07)
--- NOTE | 2023-08-01 21:27 | RESPIRATORY ---
RT seen pt. for ABHILASH diagnosis. Pt. states that he had CPAP machine but has not been using it since 10 years. pt. refused to use [facility] BiPAP machine, states will be okay without it.
[2023-08-01] MEDS: Gabapentin 600 MG TAB 1200 MG PO (21:55)
[2023-08-01 22:53] VITALS: BP 107/66; PULSE 77; RESP 18; TEMP 36.6; O2SAT 95
[2023-08-02 02:05] VITALS: BP 117/73; PULSE 79; RESP 18; TEMP 35.9; O2SAT 97
[2023-08-02] MEDS: Heparin 5,000 UNITS/ML VIAL 5000 UNITS SC ×2 (02:06→11:25)
[2023-08-02 07:40] VITALS: BP 147/83; PULSE 82; RESP 17; TEMP 35.9; O2SAT 95
[2023-08-02] MEDS: levETIRAcetam 500 MG TAB PO (09:11)
[2023-08-02] MEDS: Normal Saline Flush 10 ML SYR IVP (09:12)
[2023-08-02] MEDS: Cyanocobalamin 500 MCG TAB 2000 MCG PO (09:12)
[2023-08-02] MEDS: Escitalopram 10 MG TAB PO (09:12)
[2023-08-02] MEDS: Aspirin E.C. 81 MG TABEC PO (09:12)
--- NOTE | 2023-08-02 10:15 | PDOC.CMDIS ---
Date of service: 08/02/23 Time of Service: 10:17 LACE Index Scoring Tool Questions: Length of Stay (in days): 2 Was the patient admitted via the E.D.?: Yes Comorbidities: Cerebrovascular Disease and Diabetes w/o Complication E.D. Visits: 3 Answers: Total Score: 10 Risk of Readmission: High Risk Care Management Discharge Plan Reason for Hospitalization: Acute CVA Discharge Plan: Jose Raul will return home today with new orders for HH PT, OT. He will be driven home via private vehicle by his sister in law. He will follow up with his PCP and discharge plan of care. He is happy to be going home. Patient/Family Education Needs: Review discharge instructions and limitations, discussion of self care needs including ask me three. Services Needed at Discharge: Home Health Care Services (HH PT, OT) SDOH Health Related Social Needs: No Data to Display
--- NOTE | 2023-08-02 10:56 | DSE_ITS ---
Date of service: 08/02/23 Time of Service: 10:56 DS: Diagnosis Discharge Diagnosis (1) Acute right MCA stroke: Status: Acute (2) Left hemiplegia: Status: Acute (3) Subdural hematoma, post-traumatic: (4) Memory loss: Status: Acute (5) Vitamin B12 deficiency: Status: Acute (6) Polycythemia: Status: Acute (7) Obstructive sleep apnea of adult: Status: Acute Discharge Plan Disposition Patient Disposition: Home W/Home Health Services Condition: Improving Discharge Details Reason For Visit: Acute CVA Admit Date/Time: 07/31/23 12:50 Admit Provider: Judy Lema Attending Provider: Judy Lema Primary Care Provider: Toy Kelly Hospital Course Hospital Course: Mr Syed is a 58 year old male with PMHx of prior traumatic subdural hematomas (April 2023, requiring surgery at [facility] [place]), as well as h/o NIDDM2 complicated by neuropathy, hypertension, hyperlipidemia, ABHILASH not using a CPAP, obesity with BMI of 30.1, who was a patient on [facility] hospitalist service from 07/31/23 until 08/02/23 having presented with acute onset of L-sided hemiparesis, L facial weakness, dysarthria, and dizziness. He had a negative CT/CTA of the head, but his MRI of the brain did confirm an acute infarct in posterior right parietal lobe in R MCA distribution. [facility] [place] [place] neurology was consulted by the ED provider and recommended baby aspirin as well as atorvastatin 80 mg. Physical, occupational, and speech therapists were consulted. Dr Andino of Neurology saw the patient here and agreed with above management in addition to permissive hypertension. His symptoms improved rapidly with return of his speech back to normal by hospital day 2, return of function of LLE nearly back to normal, and a significant i mprovement in strength and dexterity of LUE. The patient is L-handed. The patient did not have any arrhythmic events on telemetry. An echocardiogram with a bubble study was obtained and showed LVEF of 60-65 %, an aneurysm of the inter-atrial septum with right to left bowing with a probably small PFO. This will likely require an outpatient DREAD for confirmation, which Dr Andino's office will set up. Finally, the patient did have evidence of polycythemia with an H/H of 18.1/54.5. While it is suspected to be a secondary polycythemia, since his obstructive sleep apnea has not been appropriately treated (last sleep study more than 20 years ago; old machine; difficulty affording newer equipment, per patient), we did draw an erythropoetin level which is pending at the time of discharge and will need to be followed up as an outpatient. Meanwhile, I do recommend a referral for a repeat sleep study. The patient is being discharged home with a cardiac event recorder, on aspirin 81 mg and atorvastatin 80 mg. He is being discharged home with home health PT and OT. He is being referred to outpatient speech therapy for symptoms unrelated to his current stroke. He should follow up with his PCP in 1-2 weeks and with neurology (I believe, he has an appointment on September 22). Care for patient as well as completion of his discharge summary on day of discharge took 45 minutes. Home Meds and New Rx's Prescriptions: New aspirin 81 mg Tablet,Delayed Release (Dr/Ec) 81 mg PO DAILY Qty: 30 0RF atorvastatin 80 mg tablet 80 mg PO QHS Qty: 30 0RF Continued acetaminophen 500 mg capsule 500 mg PO Q4H PRN (DME) blood-glucose meter [Advanced Glucose Meter] [facility] See Rx Instructions .ROUTE .MEDSUPPLY Qty: 1 0RF Rx Instructions: As directed (DME) Advanced Gluc Meter Test Strip Strip See Rx Instructions .ROUTE .MEDSUPPLY Qty: 100 4RF Rx Instructions: Twice daily metronidazole 0.75 % cream 1 applic topical BID Qty: 45 2RF (DME) lancets [OneTouch Delica Lancets] 33 gauge misc See Dose Instructions .ROUTE DAILY Qty: 100 4RF Dose Instruction: One each daily Rx Instructions: One each daily gabapentin 600 mg tablet 1,200 mg PO HS Qty: 180 3RF Patient Comments: Pt takes 600 mg in AM and 600 mg at HS dulaglutide 3 mg/0.5 mL pen injector 3 mg subcut QWEEK Qty: 2 5RF levetiracetam 500 mg tablet 500 mg PO BID Qty: 180 3RF lisinopril 40 mg tablet 40 mg PO QAM Qty: 90 3RF escitalopram oxalate 10 mg tablet 10 mg PO DAILY Qty: 90 3RF Rx Instructions: per [facility] [place] discharge Jardiance 25 mg tablet 25 mg PO QAM Qty: 90 3RF mecobalamin (vitamin B12) 1,000 mcg tablet,chewable 2,000 mcg PO DAILY Qty: 180 3RF Patient Comments: Takes 1000 mcg in AM and 1000 mcg at HS Discharge Instructions Instructions: Atorvastatin (By mouth), Ischemic Stroke (DC) Additional Instructions: Return to the hospital with any new neurologic deficits, with any fever, bleeding, chest pain or shortness of breath. Follow up with your PCP In 1-2 weeks. Follow up with neurology. Follow up for a sleep study. Stand Alone Forms: Nursing Discharge Form Referrals: [facility] Speech Langauge Pathology [Provider Group] - 08/08/23 1:00 pm [facility] [OTHER] - Toy Kelly NP [Primary Care Provider] - 08/14/23 10:20 am Jackie Andino MD [ [facility] STAFF PHYSICIAN] - (Please call and make an appointment with them ) Activity:: Activity as Tolerated Equipment/Supplies:: cardiac event recorder Diet:: consistent carb heart healthy Discharge Orders Discharge Orders: Discharge Order (Routine); Ordered 08/02/23 Ordered By: Judy Lema Other Ambulatory Orders: Cardiac Event Recorder (Routine) Timeframe: 1 Day Facility: [facility] - Location: Respiratory Therapy Ordered By: Judy Lema DS: Summary Time Spent with Patient providing and/or coordinating discharge services: Greater than 30 minutes Status at Discharge Functional status at discharge: independent ambulation Overall status at discharge: patient is progressing back to baseline Mental Status: mental status grossly normal Speech and Movement: speech and movement normal Mood: congruent mood Affect: normal affect Quality:SDOH Health Related Social Needs: No Data to Display Exam Narrative Exam Narrative: General: A pleasant middle-aged male who is A&Ox3, speech fluent and clear Neurological: A&Ox3, CNII-XII intact, sensory: paresthesias LUE, otherwise intact, 5/5 strength throughout HEENT: Atraumatic, normocephalic, EOMI, MMM, Cardiovascular: RRR, no m/r/g Lungs: CTAB Gastrointestinal: soft, nontender, nondistended Extremities: no edema BLEs, 2+ pedal pulses B Psych Mental Status: mental status grossly normal Speech and Movement: speech and movement normal Mood: congruent mood Affect: normal affect DS: Data Vitals/I&O Vitals and I&O: Vital Signs Temperature 35.9 C L 08/02/23 07:40 Temperature Source Tympanic 08/02/23 07:40 Pulse 82 08/02/23 07:40 Pulse Rhythm Regular 08/02/23 08:55 Pulse 92 H 07/31/23 09:20 Respiratory Rate 17 08/02/23 07:40 Respiratory Effort Normal, Non-Labored 08/02/23 08:55 Respiratory Depth Normal 08/02/23 08:55 Respiratory Pattern Normal 08/02/23 08:55 Blood Pressure 147/83 H 08/02/23 07:40 Blood Pressure Mean 98 07/31/23 09:01 Blood Pressure Position Sitting 07/31/23 09:02 Pulse Oximetry 95 08/02/23 07:40 Oxygen Delivery Method Room Air 08/02/23 07:40 Oxygen Flow Rate 0 08/02/23 07:40 Pain Level 0 08/02/23 07:40 Intake & Output 08/01/23 08/01/23 08/02/23 11:59 23:59 11:59 Intake Total 1240 / 1240 Output Total 400 / 400 Balance 1240 / 1240 -400 / -400 Intake: IV 1000 / 1000 Oral 240 / 240 Output: Urine 400 / 400 Other: Urine Color Yellow Urine Appearance Clear Clear Clear Urine Odor Normal Voiding Methods Toilet Toilet Data Completed and Pending Completed studies during hospitalization [Text1]: CXR: No acute pulmonary findings on this single AP portable view of the chest. CT head w/o contrast: Findings as above but without evidence of acute intracranial hemorrhage. The left-sided subdural hematoma seen on the recent CT scan of April 2023 has resolved. Bifrontal atrophy again noted versus bifrontal hygromas. Also exaggerated CSF space anterior to both temporal lobes in both middle cranial fossa. Correlation with any clinical history of frontotemporal dementia recommended. CTA head/neck: 1. Patent carotid arteries in the neck. No hemodynamically significant stenosis. 2. Patent vertebral arteries. The right vertebral artery is dominant. The left vertebral artery is developmentally thin, as described above. 3. Patent intracranial arteries. No significant stenosis nor aneurysms. 4. No ring enhancing lesions in the brain and no abnormal meningeal enhancement. 5. Previously present left side subdural hematoma has resolved, this last seen on CT scan of 05/08/2023. 6. Symmetrical bifrontal atrophy noted. Also symmetrical exaggerated CSF spaces anterior to the temporal lobes in the middle cranial fossa. Correlation with any clinical signs of frontotemporal dementia recommended. Brain MRI; 1. Acute nonhemorrhagic infarct in the posterior right parietal lobe. 2. Remnant aspect of previously documented left convexity subdural hematoma presently with some remnant over the left upper parietal convex Echo: Normal chamber sizes Normal LV function,EF 60-65%. Normal RV function. Eustachian valve in RA;aneurysm of the inter-atrial septum with right to left bowing with probable small PFO by saline contrast. DREAD correlation suggested. Anatomically normal valves.No significant regurgitation or stenosis No pericardial effusion. Labs on day of discharge: Labs from last 24 hours 08/02/23 07:17 Erythropoietin Pending [facility] All Active Problems (Updated 08/02/23 @ 10:58 by Judy Lema MD) Obstructive sleep apnea of adult (Acute) Vitamin B12 deficiency (Acute) Memory loss (Acute) Polycythemia (Acute) Acute right MCA stroke (Acute) Discharge planning issues (Acute) DVT prophylaxis (Acute) Acute left-sided weakness (Acute) Left hemiplegia (Acute) Major depressive disorder (Chronic) Rosacea (Acute) Local superficial swelling, mass or lump (Acute) Fatigue (Acute) Forgetfulness (Acute) Hyperlipemia (Chronic) Skin lesions (Acute) Face Spondylolisthesis of lumbar region (Chronic 11/16/14) Premature atrial contractions (Chronic 05/17/15) Obstructive sleep apnea syndrome (Chronic) sleeps in recliner Essential hypertension (Chronic 06/01/13) Diabetic peripheral neuropathy associated with type 2 diabetes mellitus (Chronic 10/15/14) Diabetes mellitus (Chronic 10/31/12) Medical History (Updated 08/02/23 @ 10:58 by Judy Lema MD) Subdural hematoma, post-traumatic Colitis Kidney stones Diarrhea (08/19/12) Microscopic colitis first diagnosed 1994 Bursitis of left shoulder (04/16/17) Surgical History History of appendectomy Status post inguinal hernia repair Repair of inguinal hernia Appendectomy Family History Mother , AGE 78 Diabetes Neoplasm Father , AGE 92 Diabetes Sister No problems noted. Brother No problems noted. Brother No problems noted. Son No problems noted. Daughter No problems noted. 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 Pets and animals: Yes Pets and animals: cat(s) Sexually active: No Do you think of yourself as: straight/heterosexual Current gender identity: male What is your relationship status?: How often do you talk on the phone with friends or family?: twice per week How often do you get together with friends or relatives?: never How often do you attend anglican or sabianist services?: decline to answer Do you belong to any clubs or organized social groups?: no Panel score (0-1 are the most socially isolated patients): 1 NHANES result reviewed/action taken: No What type of physical activity do you participate in: none Duration: 15-30 minutes/day Frequency: daily Mally/Anabaptist: Buddhism Agree to transfusion: No Seatbelt use: always Drive intox or ride w/intox hammer driver: No Working smoke detector in home: Yes Carbon monox detector in home: Yes Firearms in home: Yes Firearms unloaded and locked: Yes Do you feel safe at home: Yes Do you feel safe in your relationship?: Yes Would you like helpful sources: No Time Spent with Patient Time Spent with Patient: 45-69 minutes Time was spent: preparing to see the patient(eg.review tests), obtaining and/or reviewing separately otained hiistory, ordering medications,tests, procedures, referring, communicating with other health neonatal critical care nurse, indepentently interpreting results, counseling the patient and care coordination
[2023-08-02 11:18] VITALS: BP 118/60; PULSE 82; RESP 17; TEMP 36.5; O2SAT 98
--- NOTE | 2023-08-02 12:19 | PDOC.HHF2F_ITS ---
Home Health Referral Home Health Orders Clinical synopsis of why skilled professionals are needed: Mr Syed is a 58 year old male with PMHx of prior traumatic subdural hematomas (April 2023, requiring surgery at [facility] [place]), as well as h/o NIDDM2 complicated by neuropathy, hypertension, hyperlipidemia, ABHILASH not using a CPAP, obesity with BMI of 30.1, who was a patient on [facility] hospitalist service from 07/31/23 until 08/02/23 having presented with acute onset of L-sided hemiparesis, L facial weakness, dysarthria, and dizziness. He had a negative CT/CTA of the head, but his MRI of the brain did confirm an acute infarct in posterior right parietal lobe in R MCA distribution. [facility] neurology was consulted by the ED provider and recommended baby aspirin as well as atorvastatin 80 mg. Physical, occupational, and speech therapists were consulted. Dr Andino of Neurology saw the patient here and agreed with above management in addition to permissive hypertension. His symptoms improved rapidly with return of his speech back to normal by hospital day 2, return of function of LLE nearly back to normal, and a significant improvement in strength and dexterity of LUE. The patient is L-handed. The patient did not have any arrhythmic events on telemetry. An echocardiogram with a bubble study was obtained and showed LVEF of 60-65 %, an aneurysm of the inter-atrial septum with right to left bowing with a probably small PFO. This will likely require an outpatient DREAD for confirmation, which Dr Andino's office will set up. Finally, the patient did have evidence of polycythemia with an H/H of 18.1/54.5. While it is suspected to be a secondary polycythemia, since his obstructive sleep apnea has not been appropriately treated (last sleep study more than 20 years ago; old machine; difficulty affording newer equipment, per patient), we did draw an erythropoetin level which is pending at the time of discharge and will need to be followed up as an outpatient. Meanwhile, I do recommend a referral for a repeat sleep study. The patient is being discharged home with a cardiac event recorder, on aspirin 81 mg and atorvastatin 80 mg. He is being discharged home with home health PT and OT. He is being referred to outpatient speech therapy for symptoms unrelated to his current stroke. Medical diagnosis necessitation home health referral: Acute ischemic CVA Physical Therapist: Check all that apply Increase strength & endurance for safe mobility at home: Ordered To design/establish home maintenance program: Ordered Fall reduction therapy program for patient with history of frequent falls: Ordered Home safety evaluation and teaching/gait training including stair management (if applicable): Ordered Occupational Therapist: Evaluate and treat for patient unable to perform ADL/IADL/self-care: Ordered Upper extremity strengthening, range and motion: Ordered Home Bound Status Assistance of another person (Describe assistance and medical necessity): memory issues; cannot leave home without assistance Describe why leaving home would require a considerable and taxing effort: Requires alternative accommodations: Encounter Date and Reason: I certify that a FTF encounter for this patient was performed on August 02, 2023 and that such encounter was related to the primary reason the patient requires home health services. The encounter was conducted in the following manner: * By me as the certifying physician, TOOL ENGINE LATHE SET UP OPERATOR, PA or * By an inpatient physician, TOOL ENGINE LATHE SET UP OPERATOR or PA during an inpatient stay who communicated findings to me, Certification And Authentication I certify that I composed the above information based on my clinical judgment relating to this patient's medical condition and, if applicable, clinical findings communicated to me by the NPP or inpatient physician who performed the FTF encounter. Name of Provider that will be monitoring home health services: Toy Kelly
--- NOTE | 2023-08-02 16:40 | PTTR_ITS ---
Date of service: 08/02/23 Time of Service: 09:07 PT Notes Visit Reasons: Acute CVA Inpatient Physical Therapy Treatment Note [facility] Date: 08/02/23 PRECAUTIONS: Fall, standard, activity as tolerated. SUBJECTIVE: Patient excitedly demonstrates for this clinician that he has most of the function back in his left hand, is able to oppose thumb to each finger, is able to grasp and hold objects. Reports that thumb is still slightly numb. Agreeable to home health PT and OT to maximize his recovery potential. OBJECTIVE: Sitting in bedside chair conversing with BELINDA Tierney when this clinician approaches for physical therapy. Agreeable to therapy. ? PAIN: none reported. VITALS: monitored by nursing staff. ? BED MOBILITY/TRANSFERS? Rolling L/R: not assessed Supine-sit: not assessed ? Sit-supine: not assessed ? Sit-stand: SBA ? Stand-sit: SBA ? Bed-Chair: SBA ? Chair-bed: SBA Gait Training ([id number]): Direct one-on-one instruction and skilled instruction in: [] employing an assistive device [] modified weight-bearing status [x] movement sequencing [] turning and movement with proper form [] Provided verbal cues for equipment management and technique [x] Provided instruction in gait pattern [] Patient education regarding pacing and breathing techniques to maximize activity tolerance? GAIT? Assistive Device: none ? Weight bearing: full Assist: SBA? Distance:? 125 feet ? Deviation: gait largely unremarkable ? STAIRS: Patient ascends and descends 13 standard 6 stairs with single r ailing and SBA, demonstrating reciprocal gait pattern. ? ASSESSMENT:? Patient tolerates therapy well, is excited to get home to his family as he is the primary caregiver for his ailing and autistic adult son PLAN: Patient to discharge home today. Patient will benefit from HHPT/HHOT to maximize return of functionality. TREATMENT CODE/TIME: 20 minutes beginning at 9:07
[2023-08-05 14:04] LABS: Erythropoietin 8.8 mIU/mL (2.6 - 18.5)
== END 2023-08-02 14:45 | disposition home health service (06) | DRG 65 ==
LOC: ER 13:23 → MS 14:18
PROVIDERS: Admitting Provider Internal Medicine; Emergency Provider Emergency Medicine; PCP Nurse Practitioner Family; Visit Provider Internal Medicine
DX: G81.94 Hemiplegia, unspecified affecting left nondominant side; I10 Essential (primary) hypertension; I63.511 Cerebral infarction due to unspecified occlusion or stenosis of right middle cerebral artery; E11.42 Type 2 diabetes mellitus with diabetic polyneuropathy; D75.1 Secondary polycythemia; R41.3 Other amnesia; E53.8 Deficiency of other specified B group vitamins; G47.33 Obstructive sleep apnea (adult) (pediatric); G89.29 Other chronic pain; M54.50 Low back pain, unspecified; G25.81 Restless legs syndrome; R47.1 Dysarthria and anarthria; R29.708 NIHSS score 8; E78.2 Mixed hyperlipidemia; E66.9 Obesity, unspecified; Z68.30 Body mass index [BMI] 30.0-30.9, adult; F32.9 Major depressive disorder, single episode, unspecified; R53.83 Other fatigue; M43.16 Spondylolisthesis, lumbar region; L71.9 Rosacea, unspecified; I49.1 Atrial premature depolarization; Z79.85 Long-term (current) use of injectable non-insulin antidiabetic drugs; W19.XXXD Unspecified fall, subsequent encounter
CPT/HCPCS: 00123; 36415; 36416; 70496; 70498; 80048; 80053; 80061; 82668; 82962; 92610; 93005; 97110; 97116; 97162; 97165; 97530; 99285; 70450; 70551; 71045; 82607; 83036; 83735; 84484; 85025; 85610; 85730; 93010; 93306; 99222; 99232; 99239; J1644; J1815

== ENCOUNTER 2023-09-09 09:24 | Outpatient (CLI) | payer MEDICAID, SELFPAY ==
--- NOTE | 2023-09-09 14:54 | W.CARDEVENT ---
Date of service: 09/09/23 Time of Service: 14:54 Cardiac Event Recorder Referring Provider:: Toy Kelly Indications:: Transient cerebral ischemia Cardiac Event Note: This is a cardiac event monitor ordered for transient cerebral ischemia. Patient was monitored for 25 days and 9 hours Predominant rhythm was sinus. Average heart rate was 91. There was no bradycardia. Maximum heart rate was 108 in sinus, 196 with supraventricular tachycardia There was no high-grade AV block, no pauses greater than 3 seconds There were rare premature ventricular contractions. There was 1 run of nonsustained ventricular tachycardia 5 beats in duration Several runs of supraventricular tachycardia were recorded. These ranged from 160 to 196 bpm. These were probably paroxysmal atrial fibrillation or atrial flutter No patient's symptoms were reported
== END 2023-09-09 09:25 | disposition home or self-care (01) ==
LOC: CARDOPNVT 09:24
PROVIDERS: PCP Nurse Practitioner Family; Visit Provider Internal Medicine Cardiovascular Disease
DX: G45.9 Transient cerebral ischemic attack, unspecified (principal); I47.10 Supraventricular tachycardia, unspecified
CPT/HCPCS: 93270

== ENCOUNTER 2023-12-20 12:44 | Outpatient (CLI) | payer MEDICAID, SELFPAY ==
[2023-12-20 13:10] LABS: Abs Immature Grans 0.03 10^3/uL (0.0-0.06); Absolute Basophil Count 0.06 10^3/uL (0.0-0.2); Absolute Eosinophil Count 0.28 10^3/uL (0.0-0.7); Absolute Lymphocyte Count 2.11 10^3/uL (1.2-3.4); Absolute Monocyte Count 0.65 10^3/uL (0.1-0.8); Absolute Neutrophil Count 5.27 10^3/uL (1.2-6.7); Basophils % 0.7 %; Eosinophils % 3.3 %; HCT 49.7 % (40.0-50.0); HGB 16.5 g/dL (13.5-17.5); Immature Grans % 0.4 %; Lymphocytes % 25.1 %; MCH 30.1 pg (27.0-33.0); MCHC 33.2 % (32.0-36.0); MCV 91 fL (80-95); MPV 10.3 fL (8.0-11.0); Monocytes % 7.7 %; Neutrophils % 62.8 %; Platelet Count 195 10^3/uL (130-400); RBC 5.49 10^6/uL (4.36-5.78); RDW 13.4 % (11.8-14.1); RDW-SD 44.5 fL
[2023-12-20 14:20] LABS: ALT 56 U/L (16-63); AST 16 U/L (15-37); Albumin 3.6 g/dL (3.4-5.0); Alkaline Phosphatase 49 U/L (46-116); BUN 20 mg/dL (7-18); Bilirubin, Total 0.51 mg/dL (0.2-1.0); Chloride 103 mmol/L (98-107); Estimated GFR 86.16 (mL/min/1.73m2); Glucose 293 mg/dL (74-106); Potassium 4.9 mmol/L (3.5-5.1); Sodium 141 mmol/L (136-145); TSH (W/Ref FT4) 1.17 uIU/mL (0.36-3.74); Total Protein 7.1 g/dL (6.4-8.2); Vitamin B12 1237 pg/mL (193-986); Vitamin D 25 Total 25.5 ng/mL (30-100)
== END 2023-12-20 12:45 | disposition home or self-care (01) ==
LOC: LBO 12:56
PROVIDERS: Visit Provider Nurse Practitioner Family
DX: I10 Essential (primary) hypertension (principal); E78.5 Hyperlipidemia, unspecified; E03.9 Hypothyroidism, unspecified; E55.9 Vitamin D deficiency, unspecified; D51.3 Other dietary vitamin B12 deficiency anemia
CPT/HCPCS: 36415; 80053; 82306; 82607; 84443; 85025

== ENCOUNTER 2024-03-10 23:09 | Emergency (ER) | payer MEDICAID, SELFPAY ==
[2024-03-10 23:12] VITALS: BP 138/71; PULSE 88; RESP 18; O2SAT 99
[2024-03-10 23:18] VITALS: BP 138/71; PULSE 88; RESP 18; O2SAT 99
--- NOTE | 2024-03-10 23:30 | W.ED.GENAD ---
Discharge Plan Disposition Patient Disposition: Home Condition: Good Discharge Details Clinical Impression: Pain, dental Primary Care Provider: Shonda Hand ED Provider: Taran Chung Home Meds and New Rx's Prescriptions: New amoxicillin-pot clavulanate 875-125 mg tablet 1 tab PO BID 7 Days Qty: 14 0RF No Action acetaminophen 500 mg capsule 500 mg PO Q4H PRN apixaban 5 mg tablet 5 mg PO BID Qty: 60 5RF mecobalamin (vitamin B12) 1,000 mcg tablet,chewable 1,000 mcg PO DAILY Qty: 90 3RF Patient Comments: Takes 1000 mcg in AM and 1000 mcg at HS (DME) blood-glucose meter [Advanced Glucose Meter] Misc See Rx Instructions .ROUTE .MEDSUPPLY Qty: 1 0RF Rx Instructions: As directed (DME) Advanced Gluc Meter Test Strip Strip See Rx Instructions .ROUTE .MEDSUPPLY Qty: 100 4RF Rx Instructions: Twice daily metronidazole 0.75 % cream 1 applic topical BID Qty: 45 2RF (DME) lancets [OneTouch Delica Lancets] 33 gauge misc See Dose Instructions .ROUTE DAILY Qty: 100 4RF Dose Instruction: One each daily Rx Instructions: One each daily gabapentin 600 mg tablet 1,200 mg PO HS Qty: 180 3RF Patient Comments: Pt takes 600 mg in AM and 600 mg at HS Jardiance 25 mg tablet 25 mg PO QAM Qty: 90 3RF lisinopril 40 mg tablet 40 mg PO QAM Qty: 90 3RF atorvastatin 80 mg tablet 80 mg PO QHS Qty: 90 3RF dulaglutide 3 mg/0.5 mL pen injector 3 mg subcut QWEEK Qty: 2 5RF aspirin 81 mg Tablet,Delayed Release (Dr/Ec) 81 mg PO DAILY Qty: 30 0RF Discharge Instructions Instructions: Dental Pain ED Additional Instructions: The block we administered should help improve your pain. Please take 1000 mg of Tylenol every 6 hours to help with the inflammation and pain. This is the maximum dose. Please take the antibiotic as directed to help with the infection in your tooth. Please use the dental list that we have provided to contact the dentist for prompt follow-up and evaluation for tooth removal. If you notice any worsening of your symptoms, or any new symptoms such as difficulty swallowing, difficulty breathing, vomiting, diarrhea, fever, chills, shortness of breath, chest pain, numbness, weakness, or fainting , please return immediately to the emergency department for reevaluation. Please follow up with your primary care provider as soon as possible for reassessment and reevaluation. As always, it was a pleasure participating in your medical care today. HPI General Date/Time Provider Initiated Documentation: 03/10/24 23:12. HPI Narrative: 58-year-old male with a past medical history of recent stroke, paroxysmal A-fib, currently on daily baby aspirin, presents for left upper dental pain. Pain has been present for the last 5 days, has gradually been getting worse. He has been taking Tylenol Motrin for the pain without any significant improvement. He does have a dentist which she is hoping to see some tomorrow. He denies fever or chills. No other complaints at this time. No other modifying factors. Pain is located in the left upper posterior dental space. He denies any difficulty controlling secretions, difficulty swallowing, or other complaints. Related Data Home Medications ?Medication ?Instructions ?Recorded ?Confirmed lancets 33 gauge (OneTouch Delica #100 ea 09/25/18 03/10/24 Lancets) acetaminophen 500 mg capsule 500 mg PO Q4H PRN 02/18/19 03/10/24 blood sugar diagnostic (Advanced #100 ea 12/15/20 03/10/24 Glucose Meter Test Strips) blood-glucose meter (Advanced #1 ea 12/15/20 03/10/24 Glucose Meter) gabapentin 600 mg tablet 1,200 mg (2 x 600 mg) PO HS #180 04/18/23 03/10/24 tabs metronidazole 0.75 % topical cream 1 applic topical BID #45 grams 05/24/23 03/10/24 empagliflozin 25 mg tablet 25 mg PO QAM #90 tabs 07/29/23 03/10/24 (Jardiance) aspirin 81 mg tablet,delayed 81 mg PO DAILY #30 tabs 08/02/23 03/10/24 release lisinopril 40 mg tablet 40 mg PO QAM #90 tabs 08/30/23 03/10/24 atorvastatin 80 mg tablet 80 mg PO QHS #90 tabs 09/09/23 03/10/24 apixaban 5 mg tablet 5 mg PO BID #60 tabs 09/23/23 03/10/24 mecobalamin (vitamin B12) 1,000 1,000 mcg PO DAILY #90 tabs 09/23/23 03/10/24 mcg chewable tablet dulaglutide 3 mg/0.5 mL 3 mg (0.5 mL) subcut QWEEK #2 mL 02/20/24 03/10/24 subcutaneous pen injector amoxicillin 875 mg-potassium 1 tab PO BID 7 days #14 tabs 03/10/24 clavulanate 125 mg tablet Previous Rx's ?Medication ?Instructions ?Recorded lancets 33 gauge (JJ PHARMATouch Delica #100 ea 09/25/18 Lancets) blood sugar diagnostic (Advanced #100 ea 12/15/20 Glucose Meter Test Strips) blood-glucose meter (Advanced #1 ea 12/15/20 Glucose Meter) gabapentin 600 mg tablet 1,200 mg (2 x 600 mg) PO HS #180 04/18/23 tabs metronidazole 0.75 % topical cream 1 applic topical BID #45 grams 05/24/23 empagliflozin 25 mg tablet 25 mg PO QAM #90 tabs 07/29/23 (Jardiance) aspirin 81 mg tablet,delayed 81 mg PO DAILY #30 tabs 08/02/23 release lisinopril 40 mg tablet 40 mg PO QAM #90 tabs 08/30/23 atorvastatin 80 mg tablet 80 mg PO QHS #90 tabs 09/09/23 apixaban 5 mg tablet 5 mg PO BID #60 tabs 09/23/23 mecobalamin (vitamin B12) 1,000 1,000 mcg PO DAILY #90 tabs 09/23/23 mcg chewable tablet dulaglutide 3 mg/0.5 mL 3 mg (0.5 mL) subcut QWEEK #2 mL 02/20/24 subcutaneous pen injector amoxicillin 875 mg-potassium 1 tab PO BID 7 days #14 tabs 03/10/24 clavulanate 125 mg tablet Allergies Allergy/AdvReac Type Severity Reaction Status Date / Time Penicillins Allergy Mild SKIN RASH Verified 03/10/24 23:20 General Stated Complaint: DentalOral SRINIVAS: 4 Review of Systems All systems reviewed & are unremarkable except as noted in HPI and below Exam Narrative Exam Narrative: 1.Const: Well-nourished, Well-developed, appearing stated age 2.Eyes: PERRL, no conjunctival injection, and symmetrical lids. 3.ENT: Atraumatic external nose and ears. Moist MM. Neck: Symmetric, trachea midline, No thyromegaly. No periapical abscess. No evidence of Ludewig's angina. Mild dental carry in the left posterior molar. 4.CVS: +S1/S2, No murmurs or gallops. Peripheral pulses 2+ and equal in all extremities. Brisk capillary refill in all extremities. 5.RESP: Unlabored respiratory effort. Clear to auscultation bilaterally. No wheezes rales or rhonchi 6.GI: Soft, Nontender/Nondistended, No hepatosplenomegaly. No guarding or rebound. 7.MSK: Normocephalic/Atraumatic, Extremities w/o deformity or ttp No cyanosis or clubbing, Normal movement of all extremities 8.Skin: Warm, Dry. No rashes or lesions. 9.Neuro: cell changer II-XII grossly intact. Sensation grossly intact, no focal neurologic deficits. 10.Psych: (AAO) x3. Appropriate mood and affect Course Vital Signs Vital signs: Vital Signs Pulse 88 03/10/24 23:12 Respiratory Rate 18 03/10/24 23:12 Blood Pressure 138/71 03/10/24 23:12 Pulse Oximetry 99 03/10/24 23:12 Temperature Source Temporal Artery Scan 03/10/24 23:12 Pulse 88 03/10/24 23:18 Respiratory Rate 18 03/10/24 23:18 Respiratory Effort Normal, Non-Labored 03/10/24 23:18 Blood Pressure 138/71 03/10/24 23:18 Blood Pressure Position Sitting 03/10/24 23:18 Pulse Oximetry 99 03/10/24 23:18 Oxygen Delivery Method Room Air 03/10/24 23:18 Oxygen Flow Rate 0 03/10/24 23:12 Pain Level 10 03/10/24 23:18 Procedures Nerve Block Nerve Block 1: Time out performed: Yes Local Anesthetic: Bupivicaine 0.25% Amount of anesthesia used (mL): 5 Side: left Intraoral Nerve Block: superior alveolar Procedure Successful: Yes Patient Tolerated Procedure: well and no complications Complications: none Medical Decision Making 58-year-old male with a past medical history of recent stroke, paroxysmal A-fib, currently on daily baby aspirin, presents for left upper dental pain. Pain has been present for the last 5 days, has gradually been getting worse. He has been taking Tylenol Motrin for the pain without any significant improvement. He does have a dentist which she is hoping to see some tomorrow. He denies fever or chills. No other complaints at this time. No other modifying factors. Pain is located in the left upper posterior dental space. He denies any difficulty controlling secretions, difficulty swallowing, or other complaints. Exam demonstrates well-appearing male, no acute distress. No evidence of large periapical abscess or Ludewig's angina. Symptoms are consistent with mild dental carry with pulpitis. Dental block was offered, discussed risks and benefits. Patient consented. Dental block applied with mild improvement. Patient does have an allergy to penicillins reported, but he states that this is when he was a child. He states that he has had penicillin since then and has not had any rash or significant difficulty aside from mild upset stomach. We will do a trial of Augmentin. We discussed the risks and benefits of this and he preferred to start with Augmentin instead of clindamycin. Patient also at the end of the discussion did complain of a mild cough for the last few months. I offered chest x-ray versus bedside limited ultrasound. Patient has elected for ultrasound and has deferred x-ray. Bedside ultrasound showed 1 or 2 scattered B-lines on the left and the right. No evidence of significant CHF or large focal pneumonia. No evidence of pneumothorax. Patient otherwise appears clinically well. He will be discharged home with Augmentin, recommendations for Tylenol use, and continued antibiotic use. Discussed red flags for which to return. I have extensively reviewed the treatment plan and discharge instructions with the patient. I have addressed all patient concerns at this time. The patient was made aware of what symptoms to monitor for that would warrant a return to the emergency department. Discussed the plan with the patient, they demonstrate verbal understanding and agreement with our assessment and plan at this time. The documentation in this chart was dictated using [employer] dictation software. Please excuse any dictation errors. Quality:SDOH Health Related Social Needs: No Data to Display PFSH All Active Problems Pain, dental (Acute) Aneurysm, carotid artery, internal (Acute) Paroxysmal atrial fibrillation (Acute) Obstructive sleep apnea of adult (Acute) Vitamin B12 deficiency (Acute) Memory loss (Acute) Polycythemia (Acute) Acute right MCA stroke (Acute) Acute left-sided weakness (Acute) Left hemiplegia (Acute) Major depressive disorder (Chronic) Rosacea (Acute) Local superficial swelling, mass or lump (Acute) Fatigue (Acute) Forgetfulness (Acute) Hyperlipemia (Chronic) Skin lesions (Acute) Face Spondylolisthesis of lumbar region (Chronic 11/16/14) Premature atrial contractions (Chronic 05/17/15) Obstructive sleep apnea syndrome (Chronic) sleeps in recliner Essential hypertension (Chronic 06/01/13) 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 Brother No problems noted. Brother No problems noted. Son No problems noted. Daughter No problems noted. 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 Pets and animals: Yes Pets and animals: cat(s) Sexually active: No Do you think of yourself as: straight/heterosexual Current gender identity: male What is your relationship status?: How often do you talk on the phone with friends or family?: twice per week How often do you get together with friends or relatives?: never How often do you attend sikhism or samaritan services?: decline to answer Do you belong to any clubs or organized social groups?: no Panel score (0-1 are the most socially isolated patients): 1 NHANES result reviewed/action taken: No What type of physical activity do you participate in: none Duration: 15-30 minutes/day Frequency: daily Mally/Episcopalian: Scientologist Agree to transfusion: No Seatbelt use: always Drive intox or ride w/intox driver lifter of sanitation truck: No Working smoke detector in home: Yes Carbon monox detector in home: Yes Firearms in home: Yes Firearms unloaded and locked: Yes Do you feel safe at home: Yes Do you feel safe in your relationship?: Yes Would you like helpful sources: No POCUS Exam (ED) Limited Thoracic Lung Exam DATE OF EXAM: 03/11/24 TIME OF EXAM: 00:12 PROVIDER THAT PERFORMED THE STUDY: Taran Chung IS THIS A REPEAT EXAM DURING THIS ENCOUNTER: No REASON FOR EXAM: Other (cough) indication: cough VISUALIZED STRUCTURES: right posterior and left posterior PERTINENT FINDINGS/IMPRESSION: B-lines/left side (single line) thoracis location: lateral and B-lines/right side (single) thoracis location: lateral Exam complete
[2024-03-10] MEDS: Bupivacaine 0.5% Pres-Free 30 ML VIAL (23:32)
[2024-03-10] MEDS: Amox. 875/Clav. 125, 2 TABS/BTL 1 TAB PO (23:49)
== END 2024-03-10 23:49 | disposition home or self-care (01) ==
LOC: ER 23:59
PROVIDERS: Emergency Provider Student in an Organized Health Care Education/Training Program; PCP Nurse Practitioner Family
DX: K08.89 Other specified disorders of teeth and supporting structures (principal); I48.0 Paroxysmal atrial fibrillation; I10 Essential (primary) hypertension; E78.5 Hyperlipidemia, unspecified; I69.351 Hemiplegia and hemiparesis following cerebral infarction affecting right dominant side; E11.9 Type 2 diabetes mellitus without complications; Z79.85 Long-term (current) use of injectable non-insulin antidiabetic drugs; Z79.84 Long term (current) use of oral hypoglycemic drugs
CPT/HCPCS: 64400; 76604; 99284; J0665

== ENCOUNTER 2024-04-07 11:30 | Emergency (ER) | payer MEDICAID, SELFPAY ==
[2024-04-07] VITALS (29 sets, daily range): BP systolic 133–145; BP diastolic 70–89; PULSE 75–95; RESP 12–24; TEMP 36.4; O2SAT 93–98
--- NOTE | 2024-04-07 11:30 | DI.CT_ITS ---
Exam(s) CT HEAD WO EXAM: CT HEAD WO CLINICAL HISTORY: Face numbness. TECHNIQUE: Imaging Protocol: Axial computed tomography images with coronal and sagittal reformatted images were created and reviewed COMPARISON: CT CT HEAD WO from 07/31/[address] BRAIN NECK CTA from 07/31/2023 MR MR BRAIN WO from 07/31/2023 FINDINGS: Ventricles and Extra axial spaces: Normal in size and morphology for the patient's age. Hemorrhage: None. Cerebral parenchyma: There is an old right posterior parietal infarct. There are subtle areas of dec reased attenuation seen in the white matter likely reflecting chronic microvascular ischemic disease. No acute mass effect is seen. No evidence of an acute territorial infarct. Midline shift: None. Brainstem/Cerebellum: Normal. Calvarium: Normal. Visualized Paranasal sinuses/Mastoids: Clear. Soft Tissues: Unremarkable. IMPRESSION: No acute intracranial process. RADIATION DOSE DELIVERED: 900.37mGy.cm Total DLP DATA REPOSITORY: All CT scans at this facility are submitted to the National Radiology Data Registry (NRDR) Dose Index Registry (DIR) with the [employer] (ACR). RADIATION OPTIMIZATION: All CT scans at this facility use at least one of these dose optimization te chniques: automated exposure control; mA and/or kV adjustment per patient size (includes targeted exa ms where dose is matched to clinical indication); or iterative reconstruction.
--- NOTE | 2024-04-07 11:45 | DI.RAD_ITS ---
Exam(s) XR PORTABLE CHEST AP EXAM: XR PORTABLE CHEST AP CLINICAL HISTORY: ? CVA TECHNIQUE: 2D digital imaging was performed of the chest. One image was obtained. An AP view was ob tained. COMPARISON: CR XR CHEST 1V IN DI DEPT from 07/31/2023 FINDINGS: MEDIASTINUM: Normal. HEART: Normal. PULMONARY VASCULATURE: Normal. LUNGS: No focal consolidating infiltrates. Atelectasis is seen in the lung bases. PLEURAL SPACE: No pleural effusion or pneumothorax. BONE:Within normal limits for the patient's age. OTHER FINDINGS:Normal. IMPRESSION: No acute pulmonary findings. DATA REPOSITORY: RADIATION DOSE DELIVERED:
--- NOTE | 2024-04-07 11:45 | RT.EKG_ITS ---
APPROVED REPORT Exam: Resting ECG Reason for Exam: Weakness Patient Location: E HR:79 bpm ECG Measurements Heart Rate 79 AXIS VT 139 P 63 QRSd 116 QRS 64 QT 376 T 50 QTc 431 Conclusion Sinus rhythm...normal P axis, V-rate 60- 99 Nonspecific intraventricular conduction delay...QRSd >115mS, not LBBB/RBBB Normal sinus rhythm at a rate of 79 with interventricular conduction delay and a QRS of 116 ms. Norm al axis. VT and QTc within normal limits. No ST segment abnormalities. No T wave versions. Appear s similar to prior dated earlier this year.
[2024-04-07 12:07] LABS: Abs Immature Grans 0.02 10^3/uL (0.0-0.06); Absolute Basophil Count 0.04 10^3/uL (0.0-0.2); Absolute Eosinophil Count 0.26 10^3/uL (0.0-0.7); Absolute Lymphocyte Count 1.81 10^3/uL (1.2-3.4); Absolute Monocyte Count 0.73 10^3/uL (0.1-0.8); Absolute Neutrophil Count 4.76 10^3/uL (1.2-6.7); Basophils % 0.5 %; Eosinophils % 3.4 %; HCT 51.2 % (40.0-50.0); Immature Grans % 0.3 %; Lymphocytes % 23.8 %; MCH 29.7 pg (27.0-33.0); MCHC 33.2 % (32.0-36.0); MCV 90 fL (80-95); MPV 10.6 fL (8.0-11.0); Monocytes % 9.6 %; Neutrophils % 62.4 %; Platelet Count 217 10^3/uL (130-400); RBC 5.72 10^6/uL (4.36-5.78); RDW 13.6 % (11.8-14.1); RDW-SD 44.4 fL; WBC 7.62 10^3/uL (4.4-10.8)
[2024-04-07 12:26] LABS: Anion Gap 10.9 mmol/L (3-11); BUN 18 mg/dL (7-18); CO2 25.1 mmol/L (21.0-32.0); CREATININE 0.8 mg/dL (0.70-1.30); Calcium 9.5 mg/dL (8.5-10.1); Chloride 108 mmol/L (98-107); Estimated GFR 101.32 (mL/min/1.73m2); Glucose 132 mg/dL (74-106); Potassium 4.4 mmol/L (3.5-5.1); Sodium 144 mmol/L (136-145); Troponin I 8 ng/L (<or=76)
--- NOTE | 2024-04-07 13:00 | DI.MRI_ITS ---
Exam(s) MR BRAIN WO EXAM: MR BRAIN WO CLINICAL HISTORY: L facial numbness l arm numbness TECHNIQUE: Multiplanar multisequence MRI of the brain was performed. COMPARISON: MR MRI - BRAIN WO CONTRAST from 07/23/2014 MR MR BRAIN WO from 07/31/[address] BRAIN NECK CTA from 04/07/2024 FINDINGS: VENTRICLES AND EXTRA AXIAL SPACES: There is unchanged prominence of the extra-axial spaces bilaterall y in the anterior cranial fossa in the middle cranial fossa. MIDLINE SHIFT: None. CEREBRAL PARENCHYMA: No focus of restricted diffusion to suggest acute infarct. No space-occupying le hilary identified. There is an old right posterior parietal infarct. HEMORRHAGE: None. BRAINSTEM/CEREBELLUM: Normal. CALVARIUM: Normal. VISUALIZED PARANASAL SINUSES/MASTOIDS:Clear. [place] OF [place]: Normal flow void. PITUITARY GLAND: Unremarkable. OTHER FINDINGS: None. IMPRESSION: 1. No acute intracranial process. 2. Old right posterior parietal infarct. DATA REPOSITORY:
--- NOTE | 2024-04-07 13:00 | DI.CT_ITS ---
Exam(s) CT BRAIN NECK CTA EXAM: CT BRAIN NECK CTA CLINICAL HISTORY: Left-sided weakness. TECHNIQUE: Imaging Protocol: Axial CT angiography was performed with multi-slice acquisition and mu lti-planar and/or 3D reconstructions. CONTRAST MATERIAL: Intravenous: Omnipaque 350 Contrast volume:structured data in ml COMPARISON: MR MR BRAIN WO from 07/31/[address] BRAIN NECK CTA from 07/31/[address] HEAD WO from 04/07/2024 FINDINGS: CTA Neck W: Aortic arch anatomy: The aortic arch anatomy is conventional and there is no significant stenosis at the origin of the great vessels off of the aortic arch. No intimal flap evident in the aortic arch a nd the diameter of the ascending thoracic aorta is upper normal.. Anterior circulation: Both common carotid arteries ascend with normal luminal diameters. At the level the carotid bulbs and proximal internal carotid arteries there is minimal if any signifi cant plaque without hemodynamically significant stenosis evident at this level. Both internal carotid arteries above this level are patent in the upper neck without significant sten osis as well as within the skull base-carotid canals. Posterior circulation: Both vertebral arteries originate in conventional fashion off of the subclavian arteries and there is no obvious stenosis at the origin of the vertebral arteries. The right vertebral artery is again noted to be dominant exhibiting normal luminal diameter in the fo ramen transverse area. The left vertebral artery is again noted to be a thin vessel throughout its l ength and terminates as the left posterior inferior cerebellar artery, similar to previous. The righ t vertebral artery is the main contributor to formation of the basilar artery at the skull base. CTA Brain W: Anterior circulation: Both internal carotid arteries are patent in the skull base-carotid canals as well as within the cave rnous sinuses. The supraclinoid aspects of the ICAs are patent. Both A1 segments are patent as are the anterior cer ebral arteries and there is no evidence of aneurysm at the level of the anterior communicating artery . Both middle cerebral arteries are patent with no evidence of significant stenosis nor intraluminal th rombus. There also no aneurysms of these vessels. Posterior circulation: Basilar artery ascends without significant stenosis. Distally it gives off patent superior cerebellar arteries and above this level it terminates as poste rior cerebral arteries. There are posterior communicating arteries again noted on both sides the [id number] contributing to the posterior cerebral arteries. Posterior cerebral arteries are paten t bilaterally. There is no evidence of aneurysm at the tip of the basilar artery nor elsewhere in the [id number] is. CT BRAIN: There is either severe bifrontal atrophy or bilateral CSF hygromas over both frontal lobes, a finding which was evident on prior imaging studies 07/31/2023. There is no evidence of intracranial hemorrhage, mass effect, or shift of midline structures. There are no extra-axial fluid collections. Ventricles are not enlarged or shifted. Area of recent infarc t in the right parietal lobe noted (July 2023). There are no ring enhancing lesions in the brain and no abnormal meningeal enhancement. IMPRESSION: 1. Patent carotid arteries in the neck. No hemodynamically significant stenosis. 2. Patent vertebral arteries. Right vertebral artery is again noted be dominant with the left verteb ral artery being a developmentally thin vessel as described above, unchanged from previous. 3. Patent intracranial arteries. No significant stenosis nor aneurysms. 4. No ring enhancing lesions in the brain. 5. Subtle evidence of the recent nonhemorrhagic infarct in the right parietal lobe which was acute in July 2023. Recommend MRI with diffusion imaging. 6. Symmetrical bifrontal atrophy again noted as well as slightly exaggerated CSF spaces anterior to t he temporal lobes in the bilateral middle cranial fossa. Correlation with any signs of frontotempora l dementia is recommended. Called by myself to ER physician 04/07/2024 3 p.m. RADIATION DOSE DELIVERED: 1,344.14mGy.cm Total DLP DATA REPOSITORY: All CT scans at this facility are submitted to the National Radiology Data Registry (NRDR) Dose Index Registry (DIR) with the [employer] (ACR). RADIATION OPTIMIZATION: All CT scans at this facility use at least one of these dose optimization te chniques: automated exposure control; mA and/or kV adjustment per patient size (includes targeted exa ms where dose is matched to clinical indication); or iterative reconstruction.
--- NOTE | 2024-04-07 13:06 | W.ED.GENAD ---
Discharge Plan Disposition Patient Disposition: Home Discharge Details Clinical Impression: Left arm numbness, Left facial numbness Primary Care Provider: Shonda Hand ED Provider: Prem Castillo Home Meds and New Rx's Prescriptions: Continued acetaminophen 500 mg capsule 500 mg PO Q4H PRN mecobalamin (vitamin B12) 1,000 mcg tablet,chewable 1,000 mcg PO DAILY Qty: 90 3RF Patient Comments: Takes 1000 mcg in AM and 1000 mcg at HS (DME) blood-glucose meter [Advanced Glucose Meter] Misc See Rx Instructions .ROUTE .MEDSUPPLY Qty: 1 0RF Rx Instructions: As directed (DME) Advanced Gluc Meter Test Strip Strip See Rx Instructions .ROUTE .MEDSUPPLY Qty: 100 4RF Rx Instructions: Twice daily metronidazole 0.75 % cream 1 applic topical BID Qty: 45 2RF (DME) lancets [OneTouch Delica Lancets] 33 gauge misc See Dose Instructions .ROUTE DAILY Qty: 100 4RF Dose Instruction: One each daily Rx Instructions: One each daily gabapentin 600 mg tablet 1,200 mg PO HS Qty: 180 3RF Patient Comments: Pt takes 600 mg in AM and 600 mg at HS Jardiance 25 mg tablet 25 mg PO QAM Qty: 90 3RF lisinopril 40 mg tablet 40 mg PO QAM Qty: 90 3RF atorvastatin 80 mg tablet 80 mg PO QHS Qty: 90 3RF dulaglutide 3 mg/0.5 mL pen injector 3 mg subcut QWEEK Qty: 2 5RF apixaban 5 mg tablet 5 mg PO BID Qty: 180 3RF aspirin 81 mg Tablet,Delayed Release (Dr/Ec) 81 mg PO DAILY Qty: 30 0RF duloxetine 30 mg capsule,delayed release(DR/EC) 30 mg PO DAILY Patient Comments: TAKE ONE CAPSULE BY MOUTH EVERY DAY Discharge Instructions Additional Instructions: You were seen for your left arm hand and face numbness. Your MRI showed no sign of a stroke. Your blood work showed no sign of any damage to your heart. As we discussed please follow-up with your primary care provider as you will benefit from a remote heart monitor. Please return to the emergency department if you develop any weakness or take any falls. Discharge Data Discharge Date/Time-TO BE ENTERED AT DEPARTURE: 04/07/24 15:59 HPI General Date/Time Provider Initiated Documentation: 04/07/24 11:33. HPI Narrative: MDM This is an overall very well-appearing afebrile not tachycardic 58-year-old male with left-sided facial numbness and left arm numbness concerning for the possibility of recurrent CVA versus intracranial hemorrhage versus TIA for which patient will undergo dry CT scan. No pain out of proportion to suggest necrotizing soft tissue infection. No tonic-clonic activity to suggest seizure so no indication for EEG. No nuchal rigidity nor fevers to suggest meningitis so no indication for lumbar puncture. Not altered to suggest encephalitis. No chest pain to suggest ACS. No dysuria or frequency so my suspicion is low for urinary tract infection so I did not feel that the patient required a urinalysis. Patient did hit his head yesterday subsequently subdural hemorrhage is a possibility. No reported thoughts of self-harm. Blood pressure within normal limits. Will assess for acute electrolyte abnormalities. No chest pain to suggest aortic dissection however will obtain troponins to assess for dysrhythmias. 1:10 PM No acute process on CT head. I spoke with Dr. Martha Lo from [facility] neurology. She advised updated vessel imaging and MRI brain. She reported no indication for repeat echocardiogram. She said that the patient was going to be evaluated by cardiology team for a device in the setting of his atrial fibrillation. If his patient's stroke evaluation is negative we will plan on discharging with outpatient PCP follow-up with Holter monitor. Patient has a primary care provider named Rolanda Hand. I called the patient's PCP and left a message requesting callback to the ED. 1:21 PM Initial troponin 8 ng/L. Comprehensive metabolic panel with no anemia. No thrombocytopenia. No leukocytosis. Patient metabolic panel with mild hyperglycemia but no anion gap normal bicarbonate?test not consistent with DKA. No MANNY. 2:54 PM Repeat troponin stable at 8 ng/L. Will cancel third troponin. MRI reassuring against stroke. 4:35 PM I spoke to Shonda Hand, the patient's PCP. I requested help ordering an out ekg monitor. She will help to arrange this. Chronic conditions affecting the care of the patient: Prior CVA History obtained from an outside historian: N/A External record review: [facility] EMR Diagnostic interpretations performed by me: Per my independent interpretation chest x-ray shows: No acute cardiopulmonary process Per my independent interpretation EKG shows: Normal sinus rhythm at a rate of 79 with interventricular conduction delay and a QRS of 116 ms. Normal axis. MN and QTc within normal limits. No ST segment abnormalities. No T wave versions. Appears similar to prior dated earlier this year. ]Medications: N/A Social determinants of health affecting disposition: N/A Management discussed with: Neurology & PCP Treatment/interventions considered: N/A Response to therapies provided: N/A HPI This is a 58-year-old male history of paroxysmal atrial fibrillation prior CVA arrived to the emergency department via private vehicle in the setting of left-sided arm numbness and face numbness. Patient reportedly woke at his usual state of health earlier today. He noted that at 6 AM he felt symptoms reminiscent of his prior stroke. He notes that yesterday he inadvertently hit his head on the trunk. He took all his medications. He has not had any recent falls. He denies chest pain shortness of breath. He denies routine tobacco, ethanol, and illicits. No difficulty swallowing. No nausea nor vomiting. No recent fevers. No confusion. Exam General: Well-appearing in no acute distress speaking in complete sentences. Head: Normocephalic, atraumatic. Eye:[Pupils equal, round reactive to light.] Extraocular eye movements intact. No conjunctival injection. No scleral icterus. Ear, nose, mouth, throat: Grossly normal inspection. Normal voice, handling secretions normally. Neck: Trachea midline. Cardiovascular: Well-perfused distal extremities. Regular rate and rhythm Respiratory: Nonlabored respiration. Clear lungs bilaterally. Gastrointestinal: Nondistended abdomen. Soft nontender. Musculoskeletal: No edema. Moving all 4 extremities spontaneously. Skin: Normal for age and race, grossly normal temperature and turgor. No acute rash. Neurologic: Alert and appropriate, no apparent acute deficits. GCS 15. Mild left facial decreased sensation in V2 and V3. Left upper extremity numbness from elbow down to her hand. 5 out of 5 bilateral upper and lower extremity strength. No dysmetria. No dysdiadochokinesia. Please see neuronote for complete NIH stroke scale. Psychiatric: Mood and manner are appropriate. Grooming and personal hygiene are appropriate. Related Data Home Medications ?Medication ?Instructions ?Recorded ?Confirmed lancets 33 gauge ([employer] #100 ea 09/25/18 04/07/24 Lancets) acetaminophen 500 mg capsule 500 mg PO Q4H PRN 02/18/19 04/07/24 blood sugar diagnostic (Advanced #100 ea 12/15/20 04/07/24 Glucose Meter Test Strips) blood-glucose meter (Advanced #1 ea 12/15/20 04/07/24 Glucose Meter) gabapentin 600 mg tablet 1,200 mg (2 x 600 mg) PO HS #180 04/18/23 04/07/24 tabs metronidazole 0.75 % topical cream 1 applic topical BID #45 grams 05/24/23 04/07/24 empagliflozin 25 mg tablet 25 mg PO QAM #90 tabs 07/29/23 04/07/24 (Jardiance) aspirin 81 mg tablet,delayed 81 mg PO DAILY #30 tabs 08/02/23 04/07/24 release lisinopril 40 mg tablet 40 mg PO QAM #90 tabs 08/30/23 04/07/24 atorvastatin 80 mg tablet 80 mg PO QHS #90 tabs 09/09/23 04/07/24 mecobalamin (vitamin B12) 1,000 1,000 mcg PO DAILY #90 tabs 09/23/23 04/07/24 mcg chewable tablet dulaglutide 3 mg/0.5 mL 3 mg (0.5 mL) subcut QWEEK #2 mL 02/20/24 04/07/24 subcutaneous pen injector apixaban 5 mg tablet 5 mg PO BID #180 tabs 04/07/24 04/07/24 duloxetine 30 mg capsule,delayed 30 mg PO DAILY 04/07/24 04/07/24 release Previous Rx's ?Medication ?Instructions ?Recorded lancets 33 gauge (OneTouch [employer] #100 ea 09/25/18 Lancets) blood sugar diagnostic (Advanced #100 ea 12/15/20 Glucose Meter Test Strips) blood-glucose meter (Advanced #1 ea 12/15/20 Glucose Meter) gabapentin 600 mg tablet 1,200 mg (2 x 600 mg) PO HS #180 04/18/23 tabs metronidazole 0.75 % topical cream 1 applic topical BID #45 grams 05/24/23 empagliflozin 25 mg tablet 25 mg PO QAM #90 tabs 07/29/23 (Jardiance) aspirin 81 mg tablet,delayed 81 mg PO DAILY #30 tabs 08/02/23 release lisinopril 40 mg tablet 40 mg PO QAM #90 tabs 08/30/23 atorvastatin 80 mg tablet 80 mg PO QHS #90 tabs 09/09/23 mecobalamin (vitamin B12) 1,000 1,000 mcg PO DAILY #90 tabs 09/23/23 mcg chewable tablet dulaglutide 3 mg/0.5 mL 3 mg (0.5 mL) subcut QWEEK #2 mL 02/20/24 subcutaneous pen injector apixaban 5 mg tablet 5 mg PO BID #180 tabs 04/07/24 Allergies Allergy/AdvReac Type Severity Reaction Status Date / Time Penicillins Allergy Mild SKIN RASH Verified 04/07/24 11:44 General Stated Complaint: CVA/TIA SRINIVAS: 2 Course Vital Signs Vital signs: Vital Signs Temperature 36.4 C L 04/07/24 11:49 Pulse 87 04/07/24 11:49 Respiratory Rate 12 04/07/24 11:49 Blood Pressure 142/83 H 04/07/24 11:49 Pulse Oximetry 97 04/07/24 11:49 Temperature 36.4 C L 04/07/24 11:49 Temperature Source Temporal Artery Scan 04/07/24 11:49 Pulse 87 04/07/24 11:49 Respiratory Rate 12 04/07/24 11:49 Respiratory Effort Normal, Non-Labored 04/07/24 11:54 Respiratory Depth Normal 04/07/24 11:54 Respiratory Pattern Normal 04/07/24 11:54 Blood Pressure 142/83 H 04/07/24 11:49 Blood Pressure Position Sitting 04/07/24 11:49 Pulse Oximetry 97 04/07/24 11:49 Oxygen Delivery Method Room Air 04/07/24 11:49 Oxygen Flow Rate 0 04/07/24 11:49 Pain Level 0 04/07/24 11:49 Lab/Test Results Lab/Test Results: Laboratory Tests Range/Units 04/07/24 11:54 WBC (4.4-10.8) 10^3/uL 7.62 RBC (4.36-5.78) 10^6/uL 5.72 Hgb (13.5-17.5) g/dL 17.0 Hct (40.0-50.0) % 51.2 H MCV (80-95) fL 90 MCH (27.0-33.0) pg 29.7 MCHC (32.0-36.0) % 33.2 RDW (11.8-14.1) % 13.6 Plt Count (130-400) 10^3/uL 217 MPV (8.0-11.0) fL 10.6 Immature Gran % % 0.3 Neutrophils % % 62.4 Lymphocytes % % 23.8 Monocytes % % 9.6 Eosinophils % % 3.4 Basophils % % 0.5 Nucleated RBC % (0.0-0.3) % 0.0 Absolute Neutrophils (1.2-6.7) 10^3/uL 4.76 Absolute Lymphocytes (1.2-3.4) 10^3/uL 1.81 Absolute Monocytes (0.1-0.8) 10^3/uL 0.73 Absolute Eosinophils (0.0-0.7) 10^3/uL 0.26 Absolute Basophils (0.0-0.2) 10^3/uL 0.04 Sodium (136-145) mmol/L 144 Potassium (3.5-5.1) mmol/L 4.4 Chloride (98-107) mmol/L 108 H Carbon Dioxide (21.0-32.0) mmol/L 25.1 Anion Gap (3-11) mmol/L 10.9 BUN (7-18) mg/dL 18 Creatinine (0.70-1.30) mg/dL 0.8 Est GFR (CKD-EPI 2020) (mL/min/1.73m2) 101.32 Glucose (74-106) mg/dL 132 H Calcium (8.5-10.1) mg/dL 9.5 Troponin I (<or=76) ng/L 8 Medical Decision Making Quality:SDOH Health Related Social Needs: No Data to Display PFSH All Active Problems (Updated 04/07/24 @ 15:49 by Prem Castillo MD) Left facial numbness (Acute) Left arm numbness (Acute) Pain, dental (Acute) Aneurysm, carotid artery, internal (Acute) Paroxysmal atrial fibrillation (Acute) Obstructive sleep apnea of adult (Acute) Vitamin B12 deficiency (Acute) Memory loss (Acute) Polycythemia (Acute) Acute right MCA stroke (Acute) Acute left-sided weakness (Acute) Left hemiplegia (Acute) Major depressive disorder (Chronic) Rosacea (Acute) Local superficial swelling, mass or lump (Acute) Fatigue (Acute) Forgetfulness (Acute) Hyperlipemia (Chronic) Skin lesions (Acute) Face Spondylolisthesis of lumbar region (Chronic 11/16/14) Premature atrial contractions (Chronic 05/17/15) Obstructive sleep apnea syndrome (Chronic) sleeps in recliner Essential hypertension (Chronic 06/01/13) 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 Brother No problems noted. Brother No problems noted. Son No problems noted. Daughter No problems noted. 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 Pets and animals: Yes Pets and animals: cat(s) Sexually active: No Do you think of yourself as: straight/heterosexual Current gender identity: male What is your relationship status?: How often do you talk on the phone with friends or family?: twice per week How often do you get together with friends or relatives?: never How often do you attend jewish or shinto services?: decline to answer Do you belong to any clubs or organized social groups?: no Panel score (0-1 are the most socially isolated patients): 1 NHANES result reviewed/action taken: No What type of physical activity do you participate in: none Duration: 15-30 minutes/day Frequency: daily Mally/Christianity: Gnosticism Agree to transfusion: No Seatbelt use: always Drive intox or ride w/intox construction driver: No Working smoke detector in home: Yes Carbon monox detector in home: Yes Firearms in home: Yes Firearms unloaded and locked: Yes Do you feel safe at home: Yes Do you feel safe in your relationship?: Yes Would you like helpful sources: No Additional Social history: drove
[2024-04-07 13:39] LABS: Troponin I 8 ng/L (<or=76)
[2024-04-07] MEDS: Normal Saline - Diluent 50 ML VIAL IJ (14:11)
[2024-04-07] MEDS: Omnipaque 350 MG/ML 100 ML BTL 70 ML IJ (14:12)
== END 2024-04-07 15:59 | disposition home or self-care (01) ==
PROVIDERS: Emergency Provider Emergency Medicine; PCP Nurse Practitioner Family
DX: R20.0 Anesthesia of skin (principal); E11.9 Type 2 diabetes mellitus without complications; I10 Essential (primary) hypertension; I69.354 Hemiplegia and hemiparesis following cerebral infarction affecting left non-dominant side; Z79.01 Long term (current) use of anticoagulants; Z79.82 Long term (current) use of aspirin; Z79.84 Long term (current) use of oral hypoglycemic drugs; Z79.85 Long-term (current) use of injectable non-insulin antidiabetic drugs
CPT/HCPCS: 36415; 70496; 70498; 80048; 93005; 99285; 70450; 70551; 71045; 84484; 85025; 93010; 99284; J3490

== ENCOUNTER 2024-04-23 08:43 | Outpatient (CLI) | payer MEDICAID, SELFPAY | END 2024-04-23 08:44 | disposition home or self-care (01) | PROVIDERS: PCP Nurse Practitioner Family; Visit Provider Nurse Practitioner Family | DX: R20.2 Paresthesia of skin (principal) | CPT/HCPCS: 93246 ==

== ENCOUNTER 2024-06-11 08:42 | Outpatient (CLI) | payer MEDICAID, SELFPAY ==
--- NOTE | 2024-06-11 15:46 | W.CARDEVENT ---
Date of service: 06/11/24 Time of Service: 15:46 Cardiac Event Recorder Referring Provider:: Shonda Hand Indications:: Unspecified atrial fibrillation Cardiac Event Note: This is a cardiac event monitor. Patient was monitored for 6 days and 15 hours Predominant rhythm was sinus with an average heart rate of 95. Minimum was 55, maximum 158 There were very rare isolated atrial and ventricular ectopic beats There was 1 run of nonsustained ventricular tachycardia 4 beats in duration There was no atrial fibrillation, no high-grade AV block, no pauses greater than 3 seconds There were no patient symptoms
== END 2024-06-11 08:43 | disposition home or self-care (01) ==
LOC: CARDOPNVT 08:42
PROVIDERS: PCP Nurse Practitioner Family; Visit Provider Internal Medicine Cardiovascular Disease
DX: I48.91 Unspecified atrial fibrillation (principal); I47.20 Ventricular tachycardia, unspecified

== ENCOUNTER 2024-07-28 11:20 | Inpatient (IN) | payer MEDICAID, SELFPAY ==
[2024-07-28] VITALS (30 sets, daily range): BP systolic 105–138; BP diastolic 17–87; PULSE 76–97; RESP 14–26; TEMP 36.1–37; O2SAT 84–97
--- NOTE | 2024-07-28 11:15 | DI.CT_ITS ---
Exam(s) CT BRAIN NECK CTA EXAM: CT BRAIN NECK CTA CLINICAL HISTORY: CVA sx, L. arm weak and vision loss. TECHNIQUE: Imaging Protocol: Axial CT angiography was performed with multi-slice acquisition and mu lti-planar and MIP reconstructions. CONTRAST MATERIAL: Intravenous: Omnipaque 350 Contrast volume:100 ml COMPARISON: CT CT HEAD WO from 07/31/2023 MR MR BRAIN WO from 07/31/2023 MR MR BRAIN WO from 04/07/[address] HEAD WO from 04/07/[address] BRAIN NECK CTA from 04/07/2024 FINDINGS: CT Head W/O and W contrast: Ventricles and Extra axial spaces: Ventricles are normal in size and morphology for the patient's age . Prominent bilateral frontal CSF spaces again noted. Metallic densities seen bilaterally in the a nterior temporal fossas. Hemorrhage: None. Cerebral parenchyma: No evidence of acute infarct or mass. Old right posterior parietal infarct. Midline shift: None. Brainstem/Cerebellum: No acute findings.. Calvarium: Normal. Visualized Paranasal sinuses/Mastoids: Clear. Soft Tissues: Unremarkable. Enhancement: Normal. CTA Brain W: Internal Carotid Arteries: Petrous: Normal. Cavernous: Normal. Cerebral: Normal. Middle Cerebral Arteries: Right: No aneurysm, occlusion or significant stenosis. Left: No aneurysm, occlusion or significant stenosis. Anterior Cerebral Arteries: Right: No aneurysm, occlusion or significant stenosis. Left: No aneurysm, occlusion or significant stenosis. Posterior cerebral Arteries: Right: No aneurysm, occlusion or significant stenosis. Left: No aneurysm, occlusion or significant stenosis. Vertebral Arteries: Right: No aneurysm, occlusion or significant stenosis. Left: No aneurysm, occlusion or significant stenosis. Basilar Artery: No aneurysm, occlusion or significant stenosis. CTA Neck W: Common Carotid: Right: No dissection, occlusion or significant stenosis. Left: No dissection, occlusion or significant stenosis. External Carotid: Right: No dissection, occlusion or significant stenosis. Left: No dissection, occlusion or significant stenosis. Internal Carotid: Right: No visible plaque. No dissection, occlusion or significant stenosis. Left: No visible plaque. No dissection, occlusion or significant stenosis. Vertebral Artery: Right: Dominant. No dissection, occlusion or significant stenosis. Left: Diminutive caliber. Terminates in PICA. No dissection, occlusion or significant stenosis. Lung Apices: No acute findings. Bones: No acute abnormality. Soft Tissues: Normal. IMPRESSION: 1. CTA brain: CTA examination of the [place] is within normal limits of variation. 2. Head CT: Old left parietal infarct. No acute abnormality. Stable appearance of frontal atrophy a nd prominent frontal CSF spaces. 3. CTA neck: Normal CTA examination of the neck. RADIATION DOSE DELIVERED: 2,247.74mGy.cm Total DLP DATA REPOSITORY: All CT scans at this facility are submitted to the National Radiology Data Registry (NRDR) Dose Index Registry (DIR) with the [employer] (ACR). RADIATION OPTIMIZATION: All CT scans at this facility use at least one of these dose optimization te chniques: automated exposure control; mA and/or kV adjustment per patient size (includes targeted exa ms where dose is matched to clinical indication); or iterative reconstruction.
--- NOTE | 2024-07-28 11:15 | RT.EKG_ITS ---
APPROVED REPORT Exam: Resting ECG Reason for Exam: CVA Patient Location: E HR:95 bpm ECG Measurements Heart Rate 95 AXIS SC 145 P 73 QRSd 110 QRS 73 QT 349 T 47 QTc 439 Conclusion Sinus rhythm, rate 95 No interval abnormalities No STEMI Compared to priors, QRS now 110ms, no evidence for IVCD
[2024-07-28 11:33] LABS: Abs Immature Grans 0.02 10^3/uL (0.0-0.06); Absolute Basophil Count 0.04 10^3/uL (0.0-0.2); Absolute Eosinophil Count 0.33 10^3/uL (0.0-0.7); Absolute Lymphocyte Count 1.68 10^3/uL (1.2-3.4); Absolute Neutrophil Count 4.23 10^3/uL (1.2-6.7); Basophils % 0.6 %; Eosinophils % 4.9 %; HCT 44.7 % (40.0-50.0); Immature Grans % 0.3 %; Lymphocytes % 24.7 %; MCH 29.7 pg (27.0-33.0); MCHC 33.6 % (32.0-36.0); MCV 89 fL (80-95); MPV 10.7 fL (8.0-11.0); Monocytes % 7.4 %; Neutrophils % 62.1 %; Platelet Count 180 10^3/uL (130-400); RBC 5.05 10^6/uL (4.36-5.78); RDW 13.3 % (11.8-14.1); RDW-SD 43.7 fL
[2024-07-28] MEDS: Omnipaque 350 MG/ML 500 ML BTL-Imaging package 70 ML IJ (11:33)
--- NOTE | 2024-07-28 11:33 | ED.GENADUL_ITS ---
Discharge Plan Disposition Patient Disposition: Admit to [facility] Condition: Stable Discharge Details Chief Complaint: CVA/TIA Clinical Impression: Brain TIA, Hyperlipemia, Diabetes mellitus, Paroxysmal atrial fibrillation, Aneurysm, carotid artery, internal, Diabetic peripheral neuropathy associated with type 2 diabetes mellitus, Essential hypertension, Obstructive sleep apnea syndrome Primary Care Provider: Shonda Hand ED Provider: Jackie Espino Home Meds and New Rx's Prescriptions: No Action acetaminophen 500 mg capsule 500 mg PO Q4H PRN mecobalamin (vitamin B12) 1,000 mcg tablet,chewable 1,000 mcg PO DAILY Qty: 90 3RF Patient Comments: Takes 1000 mcg in AM and 1000 mcg at HS (DME) blood-glucose meter [Advanced Glucose Meter] Misc See Rx Instructions .ROUTE .MEDSUPPLY Qty: 1 0RF Rx Instructions: As directed (DME) Advanced Gluc Meter Test Strip Strip See Rx Instructions .ROUTE .MEDSUPPLY Qty: 100 4RF Rx Instructions: Twice daily metronidazole 0.75 % cream 1 applic topical BID Qty: 45 2RF (DME) lancets [OneTouch Delica Lancets] 33 gauge misc See Dose Instructions .ROUTE DAILY Qty: 100 4RF Dose Instruction: One each daily Rx Instructions: One each daily gabapentin 600 mg tablet 1,200 mg PO HS Qty: 180 3RF Patient Comments: Pt takes 600 mg in AM and 600 mg at HS Jardiance 25 mg tablet 25 mg PO QAM Qty: 90 3RF lisinopril 40 mg tablet 40 mg PO QAM Qty: 90 3RF atorvastatin 80 mg tablet 80 mg PO QHS Qty: 90 3RF dulaglutide 3 mg/0.5 mL pen injector 3 mg subcut QWEEK Qty: 2 5RF apixaban 5 mg tablet 5 mg PO BID Qty: 180 3RF aspirin 81 mg Tablet,Delayed Release (Dr/Ec) 81 mg PO DAILY Qty: 30 0RF duloxetine 30 mg capsule,delayed release(DR/EC) 30 mg PO DAILY Patient Comments: TAKE ONE CAPSULE BY MOUTH EVERY DAY HPI General Mode of arrival: EMS . Date/Time Provider Initiated Documentation: 07/28/24 11:23 . Limitations to Documentation: no limitations . Information obtained by: patient, EMS and old records reviewed . HPI Narrative: HPI: This is a 59-year-old male patient with a past medical history significant for carotid artery aneurysm, history of right MCA stroke, and history of atrial fibrillation on Eliquis status post recent watchman placement, complicated by an episode of dysrhythmia requiring cardioversion, and history of a traumatic subdural hematoma. Patient also has diabetes, hypertension, ABHILASH, and is brought in by EMS with loss of vision and left-sided weakness starting at 10 AM. The patient reports that he has otherwise been in his normal state of health, noted that his vision in his left eye disappeared and then has gradually come back with some shimmering curtain like changes. He also felt very weak in his left arm, which has persisted. The patient states that he has baseline challenges with gait since his brain surgery, feels like his voice sounds typical to him, is not noting any new word finding difficulties though he does endorse some historical word finding difficulties since his prior episodes. Exam: Gen: Awake and alert, in no apparent distress HEENT: Non-icteric sclera, PERRL, EOMs full, visual ramirez intact Neck: Supple Lungs: No apparent respiratory distress, normal respiratory effort. CV: Appears well perfused, strong distal pulses Abdomen: Non-distended, soft MSK: Moves 4 extremities without apparent limitation in ROM Skin: Visualized skin without rashes, cyanosis. Neuro: Cranial nerves II through XII intact and symmetrical bilaterally, I do note some slight flattening of the left nasolabial fold the patient has full strength of the facial muscles. Baseline speech, 4 out of 5 strength left upper extremity compared to 5 out of 5 strength right with some pronator drift. Full strength bilateral lower extremities, no sensory deficits Psych: Appropriate for situation. MDM: This is a 59-year-old male patient presenting for evaluation of vision change and left-sided weakness. Differential includes but is not limited to stroke, certainly considered ischemic stroke, embolic stroke in the setting of his recent cardioversion, and hemorrhagic stroke given his history of aneurysm and anticoagulant use. Considered recrudescence, metabolic and electrolyte derangement, anemia, infection. The patient was taken rapidly to the CT scanner after an initial evaluation by t his provider did not reveal any emergent stabilization needs. We will obtain a CTA head and neck as well as laboratory studies to include CBC, CMP, magnesium, troponin, INR. Will obtain an EKG. Fingerstick blood glucose normal. ED Course: I independently interpreted the laboratory studies, which show no significant leukocytosis, anemia, or thrombocytopenia. The chemistry panel is without evidence of electrolyte abnormality, kidney dysfunction, or liver injury. Magnesium was slightly low at 1.4 and was repleted intravenously. Troponin was negative, INR 1.1. Independently reviewed the patient's CT imaging, which showed no evidence of intracranial hemorrhage, large vessel occlusion, or other acute abnormality to explain his symptoms. [facility] teleneurology was consulted and evaluated the patient, who at that time had had resolution of his left-sided weakness. They are most concerned for TIA versus atypical migraine, and recommend MRI, aspirin, and admission on telemetry. I reached out to the hospitalist who is graciously accepted this patient for admission to their service for ongoing workup and management. While under my care the patient remained with an improved neurologic examination, transferred to the hospitalist care without incident. Jackie Espino MD Related Data Home Medications ?Medication ?Instructions ?Recorded ?Confirmed lancets 33 gauge (OneTouch Delica #100 ea 09/25/18 07/28/24 Lancets) acetaminophen 500 mg capsule 500 mg PO Q4H PRN 02/18/19 07/28/24 blood sugar diagnostic (Advanced #100 ea 12/15/20 07/28/24 Glucose Meter Test Strips) blood-glucose meter (Advanced #1 ea 12/15/20 07/28/24 Glucose Meter) gabapentin 600 mg tablet 1,200 mg (2 x 600 mg) PO HS #180 04/18/23 07/28/24 tabs metronidazole 0.75 % topical cream 1 applic topical BID #45 grams 05/24/23 07/28/24 empagliflozin 25 mg tablet 25 mg PO QAM #90 tabs 07/29/23 07/28/24 (Jardiance) aspirin 81 mg tablet,delayed 81 mg PO DAILY #30 tabs 08/02/23 07/28/24 release lisinopril 40 mg tablet 40 mg PO QAM #90 tabs 08/30/23 07/28/24 atorvastatin 80 mg tablet 80 mg PO QHS #90 tabs 09/09/23 07/28/24 mecobalamin (vitamin B12) 1,000 1,000 mcg PO DAILY #90 tabs 09/23/23 07/28/24 mcg chewable tablet dulaglutide 3 mg/0.5 mL 3 mg (0.5 mL) subcut QWEEK #2 mL 02/20/24 07/28/24 subcutaneous pen injector apixaban 5 mg tablet 5 mg PO BID #180 tabs 04/07/24 07/28/24 duloxetine 30 mg capsule,delayed 30 mg PO DAILY 04/07/24 07/28/24 release Previous Rx's ?Medication ?Instructions ?Recorded lancets 33 gauge (OneTouch Delica #100 ea 09/25/18 Lancets) blood sugar diagnostic (Advanced #100 ea 12/15/20 Glucose Meter Test Strips) blood-glucose meter (Advanced #1 ea 12/15/20 Glucose Meter) gabapentin 600 mg tablet 1,200 mg (2 x 600 mg) PO HS #180 04/18/23 tabs metronidazole 0.75 % topical cream 1 applic topical BID #45 grams 05/24/23 empagliflozin 25 mg tablet 25 mg PO QAM #90 tabs 07/29/23 (Jardiance) aspirin 81 mg tablet,delayed 81 mg PO DAILY #30 tabs 08/02/23 release lisinopril 40 mg tablet 40 mg PO QAM #90 tabs 08/30/23 atorvastatin 80 mg tablet 80 mg PO QHS #90 tabs 09/09/23 mecobalamin (vitamin B12) 1,000 1,000 mcg PO DAILY #90 tabs 09/23/23 mcg chewable tablet dulaglutide 3 mg/0.5 mL 3 mg (0.5 mL) subcut QWEEK #2 mL 02/20/24 subcutaneous pen injector apixaban 5 mg tablet 5 mg PO BID #180 tabs 04/07/24 Allergies Allergy/AdvReac Type Severity Reaction Status Date / Time Penicillins Allergy Mild SKIN RASH Verified 07/28/24 11:21 General SRINIVAS: 2 Medical Decision Making Quality:SDOH Health Related Social Needs: No Data to Display Critical Care Time Critical Care Time Critical Care Time: Yes Total Critical Care Time: 35 Attestation: Upon my evaluation, this patient had a high probability of imminent or life- threatening deterioration due to CVA/TIA, which required my direct attention, intervention, and personal management. I have personally provided 35 minutes of critical care time exclusive of time spent on separately billable procedures. Time includes review of laboratory data, radiology results, discussion with consultants, and monitoring for potential decompensation. Interventions were performed as documented above. Jackie Espino MD COUNTS INCLUDE 234 BEDS AT THE [facility] All Active Problems (Updated 07/28/24 @ 13:31 by Jackie Espino MD) Brain TIA (Acute) Aneurysm, carotid artery, internal (Acute) Paroxysmal atrial fibrillation (Acute) Obstructive sleep apnea of adult (Acute) Vitamin B12 deficiency (Acute) Memory loss (Acute) Polycythemia (Acute) Acute right MCA stroke (Acute) Acute left-sided weakness (Acute) Left hemiplegia (Acute) Major depressive disorder (Chronic) Rosacea (Acute) Local superficial swelling, mass or lump (Acute) Fatigue (Acute) Forgetfulness (Acute) Hyperlipemia (Chronic) Skin lesions (Acute) Face Spondylolisthesis of lumbar region (Chronic 11/16/14) Premature atrial contractions (Chronic 05/17/15) Obstructive sleep apnea syndrome (Chronic) sleeps in recliner Essential hypertension (Chronic 06/01/13) 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 Brother No problems noted. Brother No problems noted. Son No problems noted. Daughter No problems noted. 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 Pets and animals: Yes Pets and animals: cat(s) Sexually active: No Do you think of yourself as: straight/heterosexual Current gender identity: male What is your relationship status?: How often do you talk on the phone with friends or family?: twice per week How often do you get together with friends or relatives?: never How often do you attend amish or temple services?: decline to answer Do you belong to any clubs or organized social groups?: no Panel score (0-1 are the most socially isolated patients): 1 NHANES result reviewed/action taken: No What type of physical activity do you participate in: none Duration: 15-30 minutes/day Frequency: daily Mally/Latter Day: Restorationist Agree to transfusion: No Seatbelt use: always Drive intox or ride w/intox emt driver: No Working smoke detector in home: Yes Carbon monox detector in home: Yes Firearms in home: Yes Firearms unloaded and locked: Yes Do you feel safe at home: Yes Do you feel safe in your relationship?: Yes Would you like helpful sources: No
[2024-07-28] MEDS: Normal Saline - Diluent 50 ML VIAL IJ (11:34)
[2024-07-28 11:47] LABS: INR 1.1 (0.9-1.1); Prothrombin Time 10.8 sec (9.1-11.1)
[2024-07-28 11:52] LABS: ALT 48 U/L (16-63); AST 17 U/L (15-37); Albumin 3.1 g/dL (3.4-5.0); Alkaline Phosphatase 48 U/L (46-116); BUN 13 mg/dL (7-18); Bilirubin, Total 0.55 mg/dL (0.2-1.0); CREATININE 0.8 mg/dL (0.70-1.30); Calcium 8.8 mg/dL (8.5-10.1); Chloride 104 mmol/L (98-107); Estimated GFR 100.69 (mL/min/1.73m2); Glucose 252 mg/dL (74-106); Magnesium 1.4 mg/dL (1.8-2.4); Potassium 4.3 mmol/L (3.5-5.1); Sodium 141 mmol/L (136-145); Total Protein 6.3 g/dL (6.4-8.2); Troponin I 22 ng/L (<or=76)
[2024-07-28] MEDS: MAGNESIUM SULFATE 2 GM/50 ML BAG IV_INF (12:11)
--- NOTE | 2024-07-28 12:15 | DI.MRI_ITS ---
Exam(s) MR BRAIN WO EXAM: MR BRAIN WO CLINICAL HISTORY: TIA/CVA TECHNIQUE: Multiplanar multisequence MRI of the brain was performed. COMPARISON: MR MR BRAIN WO from 04/07/[address] BRAIN NECK CTA from 07/28/2024 FINDINGS: VENTRICLES AND EXTRA AXIAL SPACES: Prominent frontal atrophy and increased frontal CSF space. The ve ntricles are normal in size and morphology for the patient's age. MIDLINE SHIFT: None. CEREBRAL PARENCHYMA: No focus of restricted diffusion to suggest acute infarct. Small area of old in farct in the right posterior parietal lobe. No space-occupying lesion identified. Prominent frontal atrophy.. BRAINSTEM/CEREBELLUM: Normal. VISUALIZED PARANASAL SINUSES: Clear. MASTOIDS:Clear. Vasculature: Normal flow void. PITUITARY GLAND: Unremarkable. ORBITS: Unremarkable. IMPRESSION: Old right parietal infarct. No acute abnormality. DATA REPOSITORY:
[2024-07-28] MEDS: Aspirin 81 MG CHEW 324 MG CH (12:55)
--- NOTE | 2024-07-28 12:58 | W.PM.HP.N ---
Date of service: 07/28/24 Time of Service: 13:05 Assessment and Plan Assessment and plan (1) Brain TIA: Status: Acute Assessment and plan: Presenting to the ED with transient left-sided vision change and left-sided upper extremity weakness CTA neck negative for any acute findings Abdominal is chronic because hepatology consult recommendations ASA load completed in the ED MRI Echo without bubble Lipid panel A1c Physical therapy consult Telemetry NIH scale of 1 progressing to 0 as symptoms resolved.Discussion with [facility] teleneurology this could have been a migraine presenting transient scintillating vision changes versus TIA stroke. Previous echo had shown suspicion of PFO in January 2024 which we will question the pertinence above history of another pulmonary emboli echocardiogram with bubble confirmed by DREAD. (2) Aneurysm, carotid artery, internal: Status: Acute Assessment and plan: Reported history of aneurysm but no evidence on imaging today. (3) Paroxysmal atrial fibrillation: Status: Acute Assessment and plan: With Watchman procedure completed on 07/23/2024 Continue home medicine regimen (4) Obstructive sleep apnea of adult: Status: Acute Assessment and plan: Has a home CPAP which cannot be brought today. Patient is okay to not use tonight. If needed CPAP as per home setting ordered at at bedtime (5) Hyperlipemia: Status: Chronic Assessment and plan: On high intensity statin Lipid panel ordered (6) Diabetes mellitus type 2, noninsulin dependent: Status: Acute Assessment and plan: Gluc before meals and at bedtime with SSI coverage Continue home Jardiance A1c ordered (7) Hypertension: Status: Chronic Assessment and plan: Continue home meds (8) Contraindication to deep vein thrombosis (DVT) prophylaxis: Status: Acute Assessment and plan: On Eliquis, continue home dose (9) Discharge planning issues: Status: Acute Assessment and plan: Discharge home when medically stable Discussed with Dr. Sheehan History of Present Illness History of Present Illness Chief Complaint: Left-sided vision change and left upper extremity weakness Narrative: This 59 years old male patient with a past medical history of CVA, internal carotid aneurysm, subdural hemorrhage with hematoma status post trauma, atrial fibrillation on Eliquis, type 2 diabetes and hyperlipidemia presented to the ED at [facility] for evaluation of sudden onset of left-sided vision change and left upper extremity weakness. On arrival to the ED the patient was hemodynamically stable. The patient reported that vision changes resembling scintillating dots subsided after 15 minutes with the patient returning progressively to normal. Left upper extremity weakness had improved at the time of presentation with resulting NIH stroke scale of 1 as per ED provider. Patient recently [place] Watchman [place] [facility] Emergency room workup was significant for a negative head and neck CT with no acute findings only showing evidence of no neurologic symptoms for COVID likely due to low sustained in July 2023 with recommendation for MRI. Imaging also showing symmetrical bifrontal atrophy with slightly extruded CFS spaces anterior to the temporal lobes in the bilateral middle cranial fossa with clinical correlation for frontotemporal dementia recommended . Blood work was unremarkable except for magnesium at 1.4 which was replaced. EKG showed sinus rhythm at 95without signs of occlusive disease and without ectopies. [facility] teleneurology was consulted with recommendation for MRI, aspirin load, admission to telemetry. The patient was admitted to the hospitalist service to the medical surgical floor with telemetry for evaluation management of TIA/stroke. MRI was pending. MRI showed no acute abnormalities and again old right posterior parietal infarct. Based on previous echo finding in 2023, and follow-up DREAD the patient had a small PFO. Will order an echo without bubble. Will add Lipid panel, A1c to the workup. When met in the room the patient reported resolution of all symptoms but ongoing tingling of the left hand more apparent to the thumb and index finger. Tingling that started on his presentation with similar symptoms in May 2024. Patient reported initial loss of vision this a.m. around 10 subsided after 15 minutes with subsequent whooshing sensation in his head followed by left upper extremity weakness with dizziness nausea. Patient mention history of vertigo and stated that this was different from the vertigo sensation. No report of fevers, chest pain, vomiting or dysuria. Reporting bumping the back of his head last week without loss of consciousness and still having some tenderness on palpation. The patient confirmed that he wants to be full code because he would like to see goodbye to his and son but would like a palliative care consult for advanced directives consultation. Patient stated that as a Tenriism he will not take blood product transfusion. Discussed with Dr. Sheehan Review of Systems All systems reviewed & are unremarkable except as noted in HPI and below PFSH All Active Problems (Updated 07/28/24 @ 13:42 by Carol Barbour APRN) Hypertension (Chronic) Discharge planning issues (Acute) Contraindication to deep vein thrombosis (DVT) prophylaxis (Acute) Diabetes mellitus type 2, noninsulin dependent (Acute) Brain TIA (Acute) Aneurysm, carotid artery, internal (Acute) Paroxysmal atrial fibrillation (Acute) Obstructive sleep apnea of adult (Acute) Vitamin B12 deficiency (Acute) Memory loss (Acute) Polycythemia (Acute) Acute right MCA stroke (Acute) Acute left-sided weakness (Acute) Left hemiplegia (Acute) Major depressive disorder (Chronic) Rosacea (Acute) Local superficial swelling, mass or lump (Acute) Fatigue (Acute) Forgetfulness (Acute) Hyperlipemia (Chronic) Skin lesions (Acute) Face Spondylolisthesis of lumbar region (Chronic 11/16/14) Premature atrial contractions (Chronic 05/17/15) Obstructive sleep apnea syndrome (Chronic) sleeps in recliner Essential hypertension (Chronic 06/01/13) 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 Brother No problems noted. Brother No problems noted. Son No problems noted. Daughter No problems noted. 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 Pets and animals: Yes Pets and animals: cat(s) Sexually active: No Do you think of yourself as: straight/heterosexual Current gender identity: male What is your relationship status?: How often do you talk on the phone with friends or family?: twice per week How often do you get together with friends or relatives?: never How often do you attend cheondoism or druze services?: decline to answer Do you belong to any clubs or organized social groups?: no Panel score (0-1 are the most socially isolated patients): 1 NHANES result reviewed/action taken: No What type of physical activity do you participate in: none Duration: 15-30 minutes/day Frequency: daily Mally/Christianity: Tenriism Agree to transfusion: No Seatbelt use: always Drive intox or ride w/intox driver trainer: No Working smoke detector in home: Yes Carbon monox detector in home: Yes Firearms in home: Yes Firearms unloaded and locked: Yes Do you feel safe at home: Yes Do you feel safe in your relationship?: Yes Would you like helpful sources: No Meds Allergies and Home Medications Allergies Allergy/AdvReac Type Severity Reaction Status Date / Time Penicillins Allergy Mild SKIN RASH Verified 07/28/24 11:21 Home Medications ?Medication ?Instructions ?Recorded ?Confirmed ?Type lancets 33 gauge (OneTouch Delica #100 ea 09/25/18 07/28/24 Rx Lancets) acetaminophen 500 mg capsule 500 mg PO Q4H PRN 02/18/19 07/28/24 History blood sugar diagnostic (Advanced #100 ea 12/15/20 07/28/24 Rx Glucose Meter Test Strips) blood-glucose meter (Advanced #1 ea 12/15/20 07/28/24 Rx Glucose Meter) metronidazole 0.75 % topical cream 1 applic topical BID #45 grams 05/24/23 07/28/24 Rx empagliflozin 25 mg tablet 25 mg PO QAM #90 tabs 07/29/23 07/28/24 Rx (Jardiance) aspirin 81 mg tablet,delayed 81 mg PO DAILY #30 tabs 08/02/23 07/28/24 Rx release lisinopril 40 mg tablet 40 mg PO QAM #90 tabs 08/30/23 07/28/24 Rx atorvastatin 80 mg tablet 80 mg PO QHS #90 tabs 09/09/23 07/28/24 Rx mecobalamin (vitamin B12) 1,000 1,000 mcg PO DAILY #90 tabs 09/23/23 07/28/24 Rx mcg chewable tablet dulaglutide 3 mg/0.5 mL 3 mg (0.5 mL) subcut QWEEK #2 mL 02/20/24 07/28/24 Rx subcutaneous pen injector apixaban 5 mg tablet 5 mg PO BID #180 tabs 04/07/24 07/28/24 Rx duloxetine 30 mg capsule,delayed 30 mg PO DAILY 04/07/24 07/28/24 History release gabapentin 300 mg capsule 300 mg PO BID 07/28/24 07/28/24 History propranolol 10 mg tablet 20 mg PO TID 07/28/24 07/28/24 History Exam Narrative Exam Narrative: Constitutional The patient in bed comfortable HENMT: Head is atraumatic, normocephalic, no lymphadenopathy. Facial structures with normal appearance Eyes: Well aligned, intact ROM Neck: Normal ROM, no meningeal signs, no JVD Neuro:alert and oriented to self, person, place time and situation. Cranial nerves II to XII intact. No neurological focal deficit, PERRLA 3 brisk Chest:Chest is symmetrical and normal appearance Resp: Normal respiratory pattern, speaks in full sentences, unlabored breathing, clear lung bilaterally Cardio: Telemetry :sinus rhythm, regular rhythm, S1, S2, no murmur, positive pulses to all 4 extremities GI: Abdomen is not distended, soft and non tender, bowel sounds are present : Negative Costovertebral angle tenderness, no bladder distension Back/spine/Pelvis: No back tenderness, normal alignment Integumentary: Multiple keratotic looking lesions on back Extremities: strength 5/5 to bilateral lower and upper extremities Psych: RASS 0, congruent mood and normal affect. Results Labs 07/28/24 11:23 07/28/24 11:23 Labs: Laboratory Results - last 24 hr 07/28/24 11:23 WBC 6.80 RBC 5.05 Hgb 15.0 Hct 44.7 MCV 89 MCH 29.7 MCHC 33.6 RDW 13.3 Plt Count 180 MPV 10.7 Immature Gran % 0.3 Neutrophils % 62.1 Lymphocytes % 24.7 Monocytes % 7.4 Eosinophils % 4.9 Basophils % 0.6 Nucleated RBC % 0.0 Absolute Neutrophils 4.23 Absolute Lymphocytes 1.68 Absolute Monocytes 0.50 Absolute Eosinophils 0.33 Absolute Basophils 0.04 PT 10.8 INR 1.1 Sodium 141 Potassium 4.3 Chloride 104 Carbon Dioxide 30.0 Anion Gap 7.0 BUN 13 Creatinine 0.8 Est GFR (CKD-EPI 2020) 100.69 Glucose 252 H Calcium 8.8 Magnesium 1.4 L Total Bilirubin 0.55 AST 17 ALT 48 Alkaline Phosphatase 48 Troponin I 22 Total Protein 6.3 L Albumin 3.1 L Last Vital Signs Temp 36.7 C 07/28/24 11:42 Pulse 91 H 07/28/24 11:50 Resp 16 07/28/24 11:51 BP 126/63 07/28/24 11:46 Pulse Ox 95 07/28/24 11:50 Time Spent Time spent with Patient: >75 minutes Time was spent: preparing to see the patient(eg.review tests), obtaining and/or reviewing separately otained hiistory, ordering medications,tests, procedures, referring, communicating with other health rn home care, indepentently interpreting results, counseling the patient and care coordination
[2024-07-28 13:28] LABS: Troponin I 25 ng/L (<or=76)
[2024-07-28 14:23] LABS: Calculated LDL 90 mg/dL (<100); Cholesterol 178 mg/dL (<200); HDL Cholesterol 36 mg/dL (40-60); Triglyceride 264 mg/dL (<150)
[2024-07-28 14:38] LABS: Hemoglobin A1C 9.4 % (<5.7)
--- NOTE | 2024-07-28 15:02 | W.PC.ACHO ---
Registration Status: Primary Language: Preferred Language: ED Information & Data Chief Complaint CVA/TIA 07/28/24 11:48 Chief Complaint CVA/TIA 07/28/24 11:42 Triage Note left arm weakness with drift 07/28/24 11:42 and vision impairment this morning. vision impairment improving while en route to hospital. watchman procedure performed last with cardioversion Medical / Surgical History (Last Reviewed 03/11/24 @ 00:08 by Taran Chung DO) Subdural hematoma, post-traumatic Colitis Kidney stones Diarrhea (08/19/12) Bursitis of left shoulder (04/16/17) (Last Reviewed 03/11/24 @ 00:08 by Taran Chung DO) History of appendectomy Status post inguinal hernia repair Repair of inguinal hernia Appendectomy Most Recent Vital Signs Temperature 36.7 C 07/28/24 11:42 Pulse 82 07/28/24 14:51 Pulse 82 07/28/24 14:51 Respiratory Rate 15 07/28/24 14:51 Respiratory Effort Normal, Non-Labored 07/28/24 11:51 Respiratory Depth Normal 07/28/24 11:51 Blood Pressure 136/58 L 07/28/24 14:50 Blood Pressure Mean 87 07/28/24 14:50 Pulse Oximetry 96 07/28/24 14:51 Pain Level 0 07/28/24 11:42 Allergies Penicillins Allergy (Mild, Verified 07/28/24 11:21) SKIN RASH Precautions Isolation Standard precaution 07/28/24 11:48 Active Medications Generic Name Dose Route Start Last Admin Trade Name Freq PRN Reason Stop Dose Admin Iohexol 70 ml 07/28/24 11:45 07/28/24 11:33 Omnipaque 350 Mg/Ml 500 Ml Btl-Imaging Package IJ 08/27/24 23:59 70 ml DIRECTED RUBENS Administration Sodium Chloride 50 ml 07/28/24 11:45 07/28/24 11:34 Normal Saline - Diluent 50 Ml Vial IJ 50 ml .FOR DI USE RUBENS Administration IV IV Catheter Type [Left Saline Lock Antecubital] IV Catheter Gauge [Left 18 Antecubital] Diagnostics 07/28/24 07/28/24 07/28/24 Range/Units 14:52 12:48 11:23 WBC 6.80 (4.4-10.8) 10^3/uL RBC 5.05 (4.36-5.78) 10^6/uL Hgb 15.0 (13.5-17.5) g/dL Hct 44.7 (40.0-50.0) % MCV 89 (80-95) fL MCH 29.7 (27.0-33.0) pg MCHC 33.6 (32.0-36.0) % RDW 13.3 (11.8-14.1) % Plt Count 180 (130-400) 10^3/uL MPV 10.7 (8.0-11.0) fL Immature Gran % 0.3 % Neutrophils % 62.1 % Lymphocytes % 24.7 % Monocytes % 7.4 % Eosinophils % 4.9 % Basophils % 0.6 % Nucleated RBC % 0.0 (0.0-0.3) % Absolute Neutrophils 4.23 (1.2-6.7) 10^3/uL Absolute Lymphocytes 1.68 (1.2-3.4) 10^3/uL Absolute Monocytes 0.50 (0.1-0.8) 10^3/uL Absolute Eosinophils 0.33 (0.0-0.7) 10^3/uL Absolute Basophils 0.04 (0.0-0.2) 10^3/uL PT 10.8 (9.1-11.1) sec INR 1.1 (0.9-1.1) Sodium 141 (136-145) mmol/L Potassium 4.3 (3.5-5.1) mmol/L Chloride 104 (98-107) mmol/L Carbon Dioxide 30.0 (21.0-32.0) mmol/L Anion Gap 7.0 (3-11) mmol/L BUN 13 (7-18) mg/dL Creatinine 0.8 (0.70-1.30) mg/dL Est GFR (CKD-EPI 2020) 100.69 (mL/min/1.73m2) Glucose 252 H (74-106) mg/dL Hemoglobin A1c 9.4 H (<5.7) % Calcium 8.8 (8.5-10.1) mg/dL Magnesium 1.4 L (1.8-2.4) mg/dL Total Bilirubin 0.55 (0.2-1.0) mg/dL AST 17 (15-37) U/L ALT 48 (16-63) U/L Alkaline Phosphatase 48 (46-116) U/L Troponin I Pending 25 22 (<or=76) ng/L Total Protein 6.3 L (6.4-8.2) g/dL Albumin 3.1 L (3.4-5.0) g/dL Triglycerides 264 H (<150) mg/dL Total Cholesterol 178 (<200) mg/dL LDL Cholesterol, Calc 90 (<100) mg/dL HDL Cholesterol 36 L (40-60) mg/dL [id number] Documentation Fingerstick Glucose Start: 07/28/24 11:24 Freq: Status: Complete Protocol: Activity Type Activity Date Activity User E-sign Co-sign Detail Recorded Client Recorded Date Recorded By Document 07/28/24 11:23 BKG DAEMON(3) [id number] 07/28/24 11:24 BKG DAEMON(4) Intake and Output - 24 Hour Total 07/28/24 11:11 thru 07/28/24 12:12 Intake Total 10 Balance 10 Weight 90.401 kg Intake: IV 10 Falls Risk Assessment History of Falls Previous History 07/28/24 11:48 Contributing Factors Unstable,Impairments 07/28/24 11:48 Ambulatory Aids Uses ambulatory device 07/28/24 11:48 Tubes/Lines With any additional score 07/28/24 11:48 Gait Evaluation W/any additional score 07/28/24 11:48 Fall Total Score 76 07/28/24 11:48 Level of Risk Maximum Risk 07/28/24 11:48 Problems (Last Reviewed 03/11/24 @ 00:08 by Taran Chung DO) Hypertension (Chronic) Discharge planning issues (Acute) Contraindication to deep vein thrombosis (DVT) prophylaxis (Acute) Diabetes mellitus type 2, noninsulin dependent (Acute) Brain TIA (Acute) Aneurysm, carotid artery, internal (Acute) Paroxysmal atrial fibrillation (Acute) Obstructive sleep apnea of adult (Acute) Hyperlipemia (Chronic) v v v v v v v v v Sending and/or Receiving Nurses: Please use comment section below to note any information pertinent to the patient hand-off not included above. Information / Comments: Report called [id number]. Came to ED w/ left sided weakness and vision impairment. R AC 18G. Watchman placed last had to be cardioverted in the ED due to VTach. Report received from: BELINDA Tan in ED
[2024-07-28 15:14] LABS: Troponin I 27 ng/L (<or=76)
[2024-07-28] MEDS: Insulin Aspart 300 UNITS/3 ML PEN SC (17:17)
[2024-07-28] MEDS: Apixaban 5 MG TAB PO (20:29)
[2024-07-28] MEDS: Atorvastatin 40 MG TAB 80 MG PO (20:29)
[2024-07-28] MEDS: Gabapentin 300 MG CAP PO (20:29)
[2024-07-28] MEDS: Normal Saline Flush 10 ML SYR IVP (20:29)
[2024-07-28] MEDS: Propranolol 10 MG TAB 20 MG PO (21:40)
[2024-07-29] MEDS: Acetaminophen 500 MG TAB PO ×2 (00:08→04:15)
[2024-07-29 03:21] VITALS: BP 118/80; PULSE 76; RESP 19; TEMP 37.4; O2SAT 94
[2024-07-29 07:05] LABS: Abs Immature Grans 0.02 10^3/uL (0.0-0.06); Absolute Basophil Count 0.05 10^3/uL (0.0-0.2); Absolute Eosinophil Count 0.29 10^3/uL (0.0-0.7); Absolute Lymphocyte Count 1.74 10^3/uL (1.2-3.4); Absolute Monocyte Count 0.63 10^3/uL (0.1-0.8); Absolute Neutrophil Count 4.05 10^3/uL (1.2-6.7); Basophils % 0.7 %; Eosinophils % 4.3 %; HCT 47.2 % (40.0-50.0); Immature Grans % 0.3 %; Lymphocytes % 25.7 %; MCH 29.4 pg (27.0-33.0); MCHC 33.9 % (32.0-36.0); MCV 87 fL (80-95); MPV 11.3 fL (8.0-11.0); Monocytes % 9.3 %; Neutrophils % 59.7 %; Platelet Count 191 10^3/uL (130-400); RBC 5.45 10^6/uL (4.36-5.78); RDW 13.4 % (11.8-14.1); RDW-SD 42.2 fL; WBC 6.78 10^3/uL (4.4-10.8)
[2024-07-29 07:19] LABS: Anion Gap 7.3 mmol/L (3-11); BUN 12 mg/dL (7-18); CO2 28.7 mmol/L (21.0-32.0); CREATININE 0.8 mg/dL (0.70-1.30); Calcium 9.4 mg/dL (8.5-10.1); Chloride 101 mmol/L (98-107); Estimated GFR 100.69 (mL/min/1.73m2); Glucose 165 mg/dL (74-106); Magnesium 1.7 mg/dL (1.8-2.4); Potassium 4.4 mmol/L (3.5-5.1); Sodium 137 mmol/L (136-145)
[2024-07-29 07:51] VITALS: BP 127/73; PULSE 82; RESP 16; TEMP 36.8; O2SAT 93
[2024-07-29] MEDS: DULoxetine 30 MG CAP PO (08:43)
[2024-07-29] MEDS: Aspirin E.C. 81 MG TABEC PO (08:43)
[2024-07-29] MEDS: Insulin Aspart 300 UNITS/3 ML PEN SC ×2 (08:43→11:59)
[2024-07-29] MEDS: Empaglifozin 25 MG TAB PO (08:43)
[2024-07-29] MEDS: Apixaban 5 MG TAB PO (08:43)
[2024-07-29] MEDS: Propranolol 10 MG TAB 20 MG PO ×2 (08:43→14:21)
[2024-07-29] MEDS: Gabapentin 300 MG CAP PO (08:43)
[2024-07-29] MEDS: Cyanocobalamin 500 MCG TAB 1000 MCG PO (08:43)
[2024-07-29] MEDS: Normal Saline Flush 10 ML SYR IVP (08:44)
--- NOTE | 2024-07-29 09:59 | PDOC.CMIN ---
Date of service: 07/29/24 Time of Service: 09:59 Care Management Initial Assmt Initial Assessment Reason for Hospitalization: TIA Functional Status/Living Situation Patient Presentation: Jose Raul was sitting up in a chair fully dressed when CM met with him. He informed CM that he is being discharged. He was admitted with a TIA but all of his symptoms had resolved by the time he was admitted to /S. He had an ECHO, MRI and CT scan which were all reassuring. He will be discharged home with no new services. 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 ) Instrumental Activities of Daily Living (ADLs): Independent Medications Medication Management: No Issues/Barriers identified Advance Directives Advance Directives: Do you have an Advance Directive: N 11/02/12 15:25 AD On File at [facility]: N 10/31/12 13:55 Date Asked 07/28/24 07/28/24 11:24 AD Date Reviewed COLST On File at [facility] COLST Date Scanned Code Status Resuscitation Status Full Code Portal Pt does not currently have a portal and education provided: No Insurance Coverage/Financial Issues Insurance: Medicaid Care Team Visit Care Team Role Provider Type Shonda Hand Primary Care Provider NURSE PRACTITIONER Reyna Cerda RDN, [facility] Other Providers UTILITIES OPERATOR Carmencita Herrera Other Providers UTILITIES OPERATOR Mary Martinez Other Providers OTHER Floyd Ng RDN Other Providers UTILITIES OPERATOR Jackie Espino MD Emergency Provider [facility] STAFF PHYSICIAN Aries Sheehan MD Admit Provider [facility] STAFF PHYSICIAN Attending Provider Discharge Potential Discharge Needs: PCP F/U Appt Anticipated Barriers to Discharge: None Identified Patient/Family Education Needs: Review discharge instructions, discuss Ask Me Three Transportation: Private vehicle Plan: Jose Raul will be discharged home with no new services. He will follow up with his PCP and plan of care and transport with a friend. Social Determinants of Health Screening Social Determinants of Health last assessed: 07/29/24 Will the Patient Participate in the Screening?: Yes Do you worry about having a steady place to live?: no Problems where you live: other In the past 12 months, have you had to go without electric, gas, oil or water in your home?: no Have you or anyone in your house had to go without enough food to eat?: no Has lack of transportation kept you from medical appointments or from doing things needed for daily living?: no Has anyone in your life made you feel unsafe or unsupported?: no How hard is it for you to pay for the very basics like food, housing, medical care, and heating? Would you say it is:: Not hard at all Do you want help finding or keeping work or a job?: I do not need or want help If for any reason you need help with day-to-day activities such as bathing, preparing meals, shopping, managing finances, etc., do you get the help you need?: I don?t need any help How often do you feel lonely or isolated from those around you?: Never Do you speak a language other than Jamaican at home?: No Does the patient want assistance with any of the above?: No Social Determinants of Health Comments(SDOH Details): Water and septic frozen. Health Related Social Needs Health related social needs: inadequate housing (Z59.1) [facility] All Active Problems (Updated 07/28/24 @ 13:42 by Carol Barbour APRN) Hypertension (Chronic) Discharge planning issues (Acute) Contraindication to deep vein thrombosis (DVT) prophylaxis (Acute) Diabetes mellitus type 2, noninsulin dependent (Acute) Brain TIA (Acute) Aneurysm, carotid artery, internal (Acute) Paroxysmal atrial fibrillation (Acute) Obstructive sleep apnea of adult (Acute) Vitamin B12 deficiency (Acute) Memory loss (Acute) Polycythemia (Acute) Acute right MCA stroke (Acute) Acute left-sided weakness (Acute) Left hemiplegia (Acute) Major depressive disorder (Chronic) Rosacea (Acute) Local superficial swelling, mass or lump (Acute) Fatigue (Acute) Forgetfulness (Acute) Hyperlipemia (Chronic) Skin lesions (Acute) Face Spondylolisthesis of lumbar region (Chronic 11/16/14) Premature atrial contractions (Chronic 05/17/15) Obstructive sleep apnea syndrome (Chronic) sleeps in recliner Essential hypertension (Chronic 06/01/13) Diabetic peripheral neuropathy associated with type 2 diabetes mellitus (Chronic 10/15/14) Diabetes mellitus (Chronic 10/31/12) Medical History Subdural hematoma, post-traumatic Colitis Kidney stones Diarrhea (08/19/12) Microscopic colitis first diagnosed 1994 Bursitis of left shoulder (04/16/17) Surgical History History of appendectomy Status post inguinal hernia repair Repair of inguinal hernia Appendectomy Family History Mother , AGE 78 Diabetes Neoplasm Father , AGE 92 Diabetes Sister No problems noted. Brother No problems noted. Brother No problems noted. Son No problems noted. Daughter No problems noted. 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 Pets and animals: Yes Pets and animals: cat(s) Sexually active: No Do you think of yourself as: straight/heterosexual Current gender identity: male What is your relationship status?: How often do you talk on the phone with friends or family?: twice per week How often do you get together with friends or relatives?: never How often do you attend zoroastrian or gnosticist services?: decline to answer Do you belong to any clubs or organized social groups?: no Panel score (0-1 are the most socially isolated patients): 1 NHANES result reviewed/action taken: No What type of physical activity do you participate in: none Duration: 15-30 minutes/day Frequency: daily Mally/Mandaen: Amish Agree to transfusion: No Seatbelt use: always Drive intox or ride w/intox driver medic: No Working smoke detector in home: Yes Carbon monox detector in home: Yes Firearms in home: Yes Firearms unloaded and locked: Yes Do you feel safe at home: Yes Do you feel safe in your relationship?: Yes Would you like helpful sources: No
--- NOTE | 2024-07-29 10:56 | PT.INIE ---
PT Notes Visit Reasons: TIA (cardiology) Inpatient Physical Therapy Evaluation Date: 07/29/2024 Referring Doctor: Carol Barbour PT Orders: PT CONSULT: Safety consult for discharge Precautions: Telemetry in place IV access left upper extremity Patient Profile/Admitting Diagnosis: Pt is a 59 yo male presented to the ED with tingling in his LUE, weakness LUE and visual impairment left eye. CTA of neck (-). [place] [facility] [place] differential dx of migraine vs TIA. While in ED symptoms began to resolve . MRI showed no acute findings. He underwent Watchman [place]23/[place] [facility] Pt admitted for further medical management and PT Consult placed.Pt had an ECHO performed prior to PT session. PMHX: Hypertension (Chronic) Discharge planning issues (Acute) Contraindication to deep vein thrombosis (DVT) prophylaxis (Acute) Diabetes mellitus type 2, noninsulin dependent (Acute) Brain TIA (Acute) Aneurysm, carotid artery, internal (Acute) Paroxysmal atrial fibrillation (Acute) Obstructive sleep apnea of adult (Acute) Vitamin B12 deficiency (Acute) Memory loss (Acute) Polycythemia (Acute) Acute right MCA stroke (Acute) Acute left-sided weakness (Acute) Left hemiplegia (Acute) Major depressive disorder (Chronic) Rosacea (Acute) Local superficial swelling, mass or lump (Acute) Fatigue (Acute) Forgetfulness (Acute) Hyperlipemia (Chronic) Skin lesions (Acute) FaceSpondylolisthesis of lumbar region (Chronic 11/16/14) Premature atrial contractions (Chronic 05/17/15) Obstructive sleep apnea syndrome (Chronic) sleeps in reclinerEssential hypertension (Chronic 06/01/13) Diabetic peripheral neuropathy associated with type 2 diabetes mellitus (Chronic 10/15/14) Diabetes mellitus (Chronic 10/31/12) Medical History Subdural hematoma, post-traumatic Colitis Kidney stones Diarrhea (08/19/12) Microscopic colitis first diagnosed 1995 Bursitis of left shoulder (04/16/17) Surgical History History of appendectomy Status post inguinal hernia repair Repair of inguinal hernia Appendectomy Social History/Home Situation: Patient resides with spouse in two-story home with 13 steps to enter with a rail. Patient reports independent ambulation, ADLs, driving. He states he sleeps in recliner with CPAP. He reports his has some physical deficits which he needs to help her at times. He assists with cooking. He is the only member of his household who drives. Equipment Owned/DME: Patient reports stair lift within home, multiple grab bars in bathroom near toilet and tub/shower, tub seat, CPAP Subjective: Patient reports he feels much better than he did when he came in yesterday with resolution of all symptoms except numbness and tingling left thumb and index finger. Patient reports he is able to hold his left arm up now as compared to yesterday when he was unable to raise it to shoulder height. Objective: [] General Observation: Male semireclined in bed talking on phone with telemetry in place. Mental Status: Alert and oriented x 4 cooperative, motivated to return home agreeable to participate Pain: denies Vital Signs:monitored via telemetry throughout ROM: Right Upper Extremity: WNL Left Upper Extremity:WNL except amputation of index DIP Right Lower Extremity: WNL Left Lower Extremity: WNL Strength: Right Upper Extremity: 5/5 grasp strong Left Upper Extremity: shoulder flexion: 4- /5, shoulder abduction: 4- /5 ; elbow flexion: 4-/5; elbow extension:4- /5; hand grasp: strong but less than right Right Lower Extremity: 5/5 Left Lower Extremity: Hip flexion: 4 /5; hip abduction: 4 /5; hip extension:4 /5; knee extension: 4 /5; knee flexion: 4/5 ankle DF: 4/5 ; ankle PF: 4/5 Sensation: intact BLE , left hand light touch and deep pressure diminished to thumb and index finger Bed Mobility/Transfers: Bed Mobility : independent with HOB at 30 degrees. (Pt sleeps in recliner) Transfers:Independent all surfaces Floor to/from stand independent with use of chair via half kneeling Gait: Independent without device 300 feet x 2 level surfaces , no LOB, Pt demonstrates ER BLE to increase LENARD . Stairs: modified independent 13 steps with 1 rail reciprocal ascending step to descending Balance: [] Static Sitting: Normal Dynamic Sitting: Normal Static Standing: Normal Dynamic Standing: Normal Special Tests: PRINCE 56/56 Mobility Limitations Standardized Measure [facility] AM-PAC 6 clicks Basic Mobility Inpatient Short Form: Raw Score: 24 CMS Score: 0 % deficit Informed Consent/Education: Patient instructed in purpose of PT consult and plan of care. Assessment: Patient is a 59 year old male referred to physical therapy services with the diagnosis of TIA. Pt has now had resolution of initial deficits of impaired vision, and inability to raise left UE . Pt does have left UE strength deficit compared to right . He has h/o left hemiparesis from previous CVA. Pt continues to note parasthesias to left thumb and index finger which he has had for many years. He is independent with all functional mobility including rising from floor without assistance. Pt scored 56/ 56 on PRINCE Balance Scale. Skilled PT services are not indicated at this time Patient is assessed as a Moderate 02143 complexity based on the following: History:Pt is a 59 yo male with complex past medical history and comorbidities Examination: Demonstrates limitation/ abilities as stated above Presentation: evolving/ stable Decision Making: moderate Goals: N/A evaluation only Plan of Care/Treatment Plan: PT evaluation only DISCHARGE RECOMMENDATIONS: [X] Home with no services [] Home with services [specify] [] Home with outpatient PT [] [] SNF for continued rehabilitation [] [] [employer] [facility] [] [] SNF versus LTC based on ability to participate and progress [] TREATMENT CODE/TIME: 35381,23763 / [id number], [id number]
[2024-07-29 11:27] VITALS: BP 123/75; PULSE 85; RESP 14; TEMP 36.7
--- NOTE | 2024-07-29 12:36 | W.NUTRFU ---
Date of service: 07/29/24 Time of Service: 12:36 Nutrition Note NOTE: received nutrition consult regarding diabetes education/mgt Pt is 59yo male admitted and treated for brain TIA. PMH sifnificant for DMII with neuropathy, HLD, HTN. His A1C was noted at 5.9% last year and now has jumped up to 9.4% as of yesterday. TGL's also wnl this time last year and now 264. Total protein and albumin labs depressed yesterday at 6.3, and 3.1 respectively Has been tolerating his diet well and reports no current concerns outside of the immediate concern with his elevated numbers. We discussed diet briefly but spent most of out time getting a dexcom CGM on him and paired with his phone - this was successful and patient agreed to appt in two weeks when CGM times out to go over report with education and recommendations. I spoke with his PCP office today and they will send referral. Highlighted simple/refined starches and added sugars need to be modified. He drinks juice regularly - tries to look at labels and get ones with lower percentage but tends to drink lemonade often for kidneys. Suggested he avoid juice and can use real lemon juice diluted in water if he finds it beneficial. From our discussion, his diet could use some tuning up and we will spend time on reading labels. We discussed Whole grain versus whole wheat or wheat on consumer packaging and how this can be misleading. Flagged myself to call in 2 days to set up outpatient visit per our discussion. Time Spent in Nutritional Counseling and Treatment: 15 minutes
[2024-07-29 14:19] VITALS: BP 110/75; PULSE 87; RESP 17; TEMP 36.5; O2SAT 95
--- NOTE | 2024-07-29 14:51 | W.PM.DS.N ---
Date of service: 07/29/24 Time of Service: 14:52 DS: Diagnosis Discharge Diagnosis (1) Brain TIA: Status: Acute (2) Aneurysm, carotid artery, internal: Status: Acute (3) Paroxysmal atrial fibrillation: Status: Acute (4) Obstructive sleep apnea of adult: Status: Acute (5) Hyperlipemia: Status: Chronic (6) Diabetes mellitus type 2, noninsulin dependent: Status: Acute (7) Hypertension: Status: Chronic (8) Contraindication to deep vein thrombosis (DVT) prophylaxis: Status: Acute (9) Discharge planning issues: Status: Acute Discharge Plan Disposition Patient Disposition: Home Condition: Stable Discharge Details Reason For Visit: TIA Admit Date/Time: 07/28/24 13:05 Admit Provider: Aries Sheehan Attending Provider: Aries Sheehan Primary Care Provider: Shonda Hand Hospital Course Hospital Course: This 59 years old male patient with a past medical history of CVA, internal carotid aneurysm, subdural hemorrhage with hematoma status post trauma, atrial fibrillation on Eliquis, type 2 diabetes and hyperlipidemia presented to the ED at [facility] for evaluation of sudden onset of left-sided vision change and left upper extremity weakness. On arrival to the ED the patient was hemodynamically stable. The patient reported that vision changes resembling scintillating dots subsided after 15 minutes with the patient returning progressively to normal. Left upper extremity weakness had improved at the time of presentation with resulting NIH stroke scale of 1 as per ED provider. Patient recently completed Watchman procedure at [facility] on [place]23/[place]24. Emergency room workup was significant for a negative head and neck CT with recommendation for MRI. Imaging also showing symmetrical bifrontal atrophy with slightly extruded CFS spaces anterior to the temporal lobes in the bilateral middle cranial fossa with clinical correlation for frontotemporal dementia recommended. . Blood work was unremarkable except for magnesium at 1.4 which was replaced. EKG showed sinus rhythm at 95without signs of occlusive disease and without ectopies. [facility] teleneurology was consulted with recommendation for MRI, aspirin load, admission to telemetry. The patient was admitted to the hospitalist service to the medical surgical floor with telemetry for evaluation management of TIA/stroke. MRI showed no acute abnormalities and again old right posterior parietal infarct. Based on previous echo finding in 2023, and follow-up DREAD the patient had a confirmed small PFO.On arrival to the floor, the patient reported resolution of all symptoms but ongoing tingling of the left hand and more to the thumb and index finger. The tingling started on his presentation with similar symptoms in May 2024 and never completely subsided. Patient reported initial loss of vision this a.m. around 10 subsided after 15 minutes with subsequent whooshing sensation in his head followed by left upper extremity weakness with dizziness nausea. Patient mention history of vertigo and stated that this was different from the vertigo sensation. Reporting bumping the back of his head last week without loss of consciousness and still having some tenderness on palpation. An echocardiogram was completed status post watchman, thus limited echo was completed with preliminary LVEF of 56%. No clot seen in transit upon independent review of images. Official report is still pending. Lipid panel showed triglycerides at 264 with previous level at 110 and goal being less than 150, LDL at 90 with goal less than 70 and HDL at 36; the patient has been receiving maximum dose of high intensity statin. Hemoglobin A1c was found to be 9.4 with previous at 5.9. Will initiate Lovaza as the patient has a high ASCVD risk; ongoing lipid panel monitoring recommended outpatient. A prescription was sent for CMP and bleeding time with critical to be reported to primary care practitioner. Dietary consult was initiated with recommendations for outpatient follow-up. The patient will need to follow-up with neurology and his primary care practitioner upon discharge. With no further recurrence of symptoms overnight and telemetry remaining in sinus rhythm without ectopy the patient will be discharged home without need for services. Discussed with Dr. Sheehan Home Meds and New Rx's Prescriptions: New omega-3 acid ethyl esters [Lovaza] 1 gram capsule 2 cap PO BID Qty: 120 0RF Continued acetaminophen 500 mg capsule 500 mg PO Q4H PRN mecobalamin (vitamin B12) 1,000 mcg tablet,chewable 1,000 mcg PO DAILY Qty: 90 3RF Patient Comments: Takes 1000 mcg in AM and 1000 mcg at HS (DME) blood-glucose meter [Advanced Glucose Meter] Misc See Rx Instructions .ROUTE .MEDSUPPLY Qty: 1 0RF Rx Instructions: As directed (DME) Advanced Gluc Meter Test Strip Strip See Rx Instructions .ROUTE .MEDSUPPLY Qty: 100 4RF Rx Instructions: Twice daily metronidazole 0.75 % cream 1 applic topical BID Qty: 45 2RF (DME) lancets [OneTouch Delica Lancets] 33 gauge misc See Dose Instructions .ROUTE DAILY Qty: 100 4RF Dose Instruction: One each daily Rx Instructions: One each daily Jardiance 25 mg tablet 25 mg PO QAM Qty: 90 3RF lisinopril 40 mg tablet 40 mg PO QAM Qty: 90 3RF atorvastatin 80 mg tablet 80 mg PO QHS Qty: 90 3RF dulaglutide 3 mg/0.5 mL pen injector 3 mg subcut QWEEK Qty: 2 5RF apixaban 5 mg tablet 5 mg PO BID Qty: 180 3RF aspirin 81 mg Tablet,Delayed Release (Dr/Ec) 81 mg PO DAILY Qty: 30 0RF duloxetine 30 mg capsule,delayed release(DR/EC) 30 mg PO DAILY Patient Comments: TAKE ONE CAPSULE BY MOUTH EVERY DAY gabapentin 300 mg capsule 300 mg PO BID Patient Comments: TAKE ONE CAPSULE BY MOUTH TWICE A DAY propranolol 10 mg tablet 20 mg PO TID Patient Comments: TAKE TWO TABLETS BY MOUTH THREE TIMES A DAY Discharge Instructions Referrals: Floyd Ng RDN [CONTAINER REPAIRER] - (OPT f/u needed A1C 9.4 triglycerides 264) Jackie Andino MD [ [facility] STAFF PHYSICIAN] - (Your information has been sent to the office, they should call you, but feel free to call them as well. ) Shonda Hand [Primary Care Provider] - 08/06/24 1:00 pm () Activity:: Activity as Tolerated Equipment/Supplies:: No Equipment Needed Diet:: Heart healthy diabetic's Discharge Orders Discharge Orders: Discharge Order (Routine); Ordered 07/29/24 Ordered By: Carol Barbour Other Ambulatory Orders: Comprehensive Metabolic Panel (Routine) Timeframe: 20240805 Facility: [facility] - Location: Laboratory Outpatient - [facility] Ordered By: Carol Barbour PTT Activated (Routine) Timeframe: [id number] Facility: [facility] - Location: Laboratory Outpatient - [facility] Ordered By: Carol Barbour DS: Summary Time Spent with Patient providing and/or coordinating discharge services: Greater than 30 minutes Status at Discharge Functional status at discharge: independent ambulation Overall status at discharge: patient is progressing back to baseline Mental Status: mental status grossly normal Speech and Movement: speech and movement normal Mood: congruent mood Affect: normal affect Quality:SDOH Health Related Social Needs: Health related social needs inadequate housing (Z59.1), housing instability, housed, with risk of homelessness (Z59.811) Exam Narrative Exam Narrative: Constitutional The patient is sitting in chair w/o acute distress HENMT: Facial structures with normal appearance, symmetrical naso-labial - folds Eyes: Well aligned, intact ROM Neck: No JVD Neuro:alert and oriented X4, No neurological focal deficit Resp:Clear lung bilaterally Cardio: Telemetry :sinus rhythm SR, S1, S2, no murmur, positive pulses to all 4 extremities GI: Abdomen is large- not distended, soft and non tender, bowel sounds are present Back/spine/Pelvis: No back tenderness, normal alignment Extremities: strength 5/5 to bilateral lower and upper extremities Psych: RASS 0, congruent mood and normal affect. Psych Mental Status: mental status grossly normal Speech and Movement: speech and movement normal Mood: congruent mood Affect: normal affect DS: Data Vitals/I&O Vitals and I&O: Vital Signs Temperature 36.7 C 07/29/24 11:27 Temperature Source Temporal Artery Scan 07/29/24 11:27 Pulse 87 07/29/24 14:19 Pulse Rhythm Regular 07/28/24 15:21 Pulse 82 07/28/24 14:51 Respiratory Rate 14 07/29/24 11:27 Respiratory Effort Normal, Non-Labored 07/28/24 15:21 Respiratory Depth Normal 07/28/24 15:21 Respiratory Pattern Normal 07/28/24 15:21 Blood Pressure 110/75 07/29/24 14:19 Blood Pressure Mean 87 07/28/24 14:50 Pulse Oximetry 93 07/29/24 07:51 Oxygen Delivery Method Room Air 07/29/24 11:27 Oxygen Flow Rate 0 07/29/24 11:27 Pain Level 0 07/29/24 11:27 Comment MAP: 87 07/29/24 14:19 Intake & Output 07/28/24 07/29/24 07/29/24 23:59 11:59 23:59 Intake Total 360 / 720 360 / 720 Balance 360 / 720 360 / 720 Weight 88.405 kg Intake: IV Oral 360 / 720 360 / 720 Other: Urine Color Yellow Urine Appearance Clear Clear Urine Odor None Comment pT reports he has voided independently. Data Completed and Pending Labs on day of discharge: Labs from last 24 hours 07/29/24 07/28/24 06:10 14:52 WBC 6.78 RBC 5.45 Hgb 16.0 Hct 47.2 MCV 87 MCH 29.4 MCHC 33.9 RDW 13.4 Plt Count 191 MPV 11.3 H Immature Gran % 0.3 Neutrophils % 59.7 Lymphocytes % 25.7 Monocytes % 9.3 Eosinophils % 4.3 Basophils % 0.7 Nucleated RBC % 0.0 Absolute Neutrophils 4.05 Absolute Lymphocytes 1.74 Absolute Monocytes 0.63 Absolute Eosinophils 0.29 Absolute Basophils 0.05 Sodium 137 Potassium 4.4 Chloride 101 Carbon Dioxide 28.7 Anion Gap 7.3 BUN 12 Creatinine 0.8 Est GFR (CKD-EPI 2020) 100.69 Glucose 165 H Calcium 9.4 Magnesium 1.7 L Troponin I 27 PFSH All Active Problems (Updated 07/28/24 @ 13:42 by Carol Barbour APRN) Hypertension (Chronic) Discharge planning issues (Acute) Contraindication to deep vein thrombosis (DVT) prophylaxis (Acute) Diabetes mellitus type 2, noninsulin dependent (Acute) Brain TIA (Acute) Aneurysm, carotid artery, internal (Acute) Paroxysmal atrial fibrillation (Acute) Obstructive sleep apnea of adult (Acute) Vitamin B12 deficiency (Acute) Memory loss (Acute) Polycythemia (Acute) Acute right MCA stroke (Acute) Acute left-sided weakness (Acute) Left hemiplegia (Acute) Major depressive disorder (Chronic) Rosacea (Acute) Local superficial swelling, mass or lump (Acute) Fatigue (Acute) Forgetfulness (Acute) Hyperlipemia (Chronic) Skin lesions (Acute) Face Spondylolisthesis of lumbar region (Chronic 11/16/14) Premature atrial contractions (Chronic 05/17/15) Obstructive sleep apnea syndrome (Chronic) sleeps in recliner Essential hypertension (Chronic 06/01/13) Diabetic peripheral neuropathy associated with type 2 diabetes mellitus (Chronic 10/15/14) Diabetes mellitus (Chronic 10/31/12) Medical History Subdural hematoma, post-traumatic Colitis Kidney stones Diarrhea (08/19/12) Microscopic colitis first diagnosed 1994 Bursitis of left shoulder (04/16/17) Surgical History History of appendectomy Status post inguinal hernia repair Repair of inguinal hernia Appendectomy Family History Mother , AGE 78 Diabetes Neoplasm Father , AGE 92 Diabetes Sister No problems noted. Brother No problems noted. Brother No problems noted. Son No problems noted. Daughter No problems noted. 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 Pets and animals: Yes Pets and animals: cat(s) Sexually active: No Do you think of yourself as: straight/heterosexual Current gender identity: male What is your relationship status?: How often do you talk on the phone with friends or family?: twice per week How often do you get together with friends or relatives?: never How often do you attend baptism or quaker services?: decline to answer Do you belong to any clubs or organized social groups?: no Panel score (0-1 are the most socially isolated patients): 1 NHANES result reviewed/action taken: No What type of physical activity do you participate in: none Duration: 15-30 minutes/day Frequency: daily Mally/Episcopal: Adventism Agree to transfusion: No Seatbelt use: always Drive intox or ride w/intox transfer driver: No Working smoke detector in home: Yes Carbon monox detector in home: Yes Firearms in home: Yes Firearms unloaded and locked: Yes Do you feel safe at home: Yes Do you feel safe in your relationship?: Yes Would you like helpful sources: No Time Spent with Patient Time Spent with Patient: 70-84 minutes4 Time was spent: preparing to see the patient(eg.review tests), obtaining and/or reviewing separately otained hiistory, ordering medications,tests, procedures, referring, communicating with other health health care administrator, indepentently interpreting results, counseling the patient and care coordination
--- NOTE | 2024-07-29 18:27 | PDOC.CMDIS ---
Date of service: 07/29/24 Time of Service: 18:27 LACE Index Scoring Tool Questions: Length of Stay (in days): 1 Was the patient admitted via the E.D.?: Yes Comorbidities: Cerebrovascular Disease, Diabetes w/o Complication and Chronic Pulmonary Disease E.D. Visits: 3 Answers: Total Score: 12 Risk of Readmission: High Risk Care Management Discharge Plan Reason for Hospitalization: TIA Discharge Plan: Jose Raul will be discharged home with no new services. He will follow up with his community providers and plan of care and transport with a friend. Patient/Family Education Needs: Review discharge instructions, limitations and discuss Ask Me Three. SDOH Health Related Social Needs: Health related social needs inadequate housing (Z59.1)
== END 2024-07-29 15:54 | disposition home or self-care (01) | DRG 69 ==
LOC: ER 13:31 → MS 15:10
PROVIDERS: Nurse Practitioner Acute Care; Admitting Provider Family Medicine; Emergency Provider Emergency Medicine; PCP Nurse Practitioner Family; Visit Provider Family Medicine
DX: G45.9 Transient cerebral ischemic attack, unspecified (principal); Q21.12 Patent foramen ovale; I67.1 Cerebral aneurysm, nonruptured; I48.0 Paroxysmal atrial fibrillation; G47.33 Obstructive sleep apnea (adult) (pediatric); E78.2 Mixed hyperlipidemia; I10 Essential (primary) hypertension; Z79.1 Long term (current) use of non-steroidal anti-inflammatories (NSAID); Z95.818 Presence of other cardiac implants and grafts; Z86.73 Personal history of transient ischemic attack (TIA), and cerebral infarction without residual deficits; R41.3 Other amnesia; E53.8 Deficiency of other specified B group vitamins; F32.9 Major depressive disorder, single episode, unspecified; D75.1 Secondary polycythemia; E11.42 Type 2 diabetes mellitus with diabetic polyneuropathy; R20.2 Paresthesia of skin; H53.8 Other visual disturbances
CPT/HCPCS: 00123; 36415; 36416; 70496; 70498; 80048; 80053; 80061; 82962; 93005; 93308; 96365; 97162; 97530; 99291; 70551; 83036; 83735; 84484; 85025; 85610; 93010; 99223; 99239; J1815; J3475

== ENCOUNTER 2024-07-31 14:05 | Outpatient (CLI) | payer MEDICAID, SELFPAY ==
[2024-07-31 14:18] LABS: PTT Activated 27.9 sec (20.6-30.2)
[2024-07-31 15:11] LABS: ALT 52 U/L (16-63); AST 23 U/L (15-37); Albumin 3.7 g/dL (3.4-5.0); Alkaline Phosphatase 58 U/L (46-116); Anion Gap 8.4 mmol/L (3-11); BUN 34 mg/dL (7-18); Bilirubin, Total 0.57 mg/dL (0.2-1.0); CO2 28.6 mmol/L (21.0-32.0); CREATININE 1.3 mg/dL (0.70-1.30); Calcium 9.4 mg/dL (8.5-10.1); Chloride 103 mmol/L (98-107); Glucose 236 mg/dL (74-106); Potassium 4.4 mmol/L (3.5-5.1); Sodium 140 mmol/L (136-145); Total Protein 7.3 g/dL (6.4-8.2)
== END 2024-07-31 14:06 | disposition home or self-care (01) ==
PROVIDERS: PCP Nurse Practitioner Family; Visit Provider Nurse Practitioner Acute Care
DX: I48.0 Paroxysmal atrial fibrillation (principal); E78.5 Hyperlipidemia, unspecified
CPT/HCPCS: 36415; 80053; 85730

== ENCOUNTER 2024-11-04 13:22 | Outpatient (CLI) | payer MEDICAID, SELFPAY ==
[2024-11-04 13:46] LABS: Hemoglobin A1C 9.2 % (<5.7)
== END 2024-11-04 13:23 | disposition home or self-care (01) ==
LOC: LBO 13:22
PROVIDERS: PCP Nurse Practitioner Family; Visit Provider Nurse Practitioner Family
DX: E11.9 Type 2 diabetes mellitus without complications (principal)
CPT/HCPCS: 36415; 83036

== ENCOUNTER 2025-02-09 09:49 | Outpatient (CLI) | payer MEDICAID, SELFPAY ==
[2025-02-09 09:48] LABS: ESR 5 mm/hr (0-20)
[2025-02-09 10:56] LABS: C-Reactive Protein < 0.50 mg/dL (<or=0.5)
[2025-02-10 10:43] LABS: Lyme Ab w Rflx to Lyme Confirm Negative (Negative)
== END 2025-02-09 09:50 | disposition home or self-care (01) ==
LOC: LBO 09:50
PROVIDERS: PCP Nurse Practitioner Family; Visit Provider Nurse Practitioner Family
DX: R68.89 Other general symptoms and signs (principal)
CPT/HCPCS: 36415; 85652; 86038; 86140; 86618

== ENCOUNTER 2025-04-16 14:08 | Outpatient (CLI) | payer MEDICAID, SELFPAY ==
[2025-04-16 12:02] LABS: ESR 9 mm/hr (0-20)
[2025-04-16 12:21] LABS: Hemoglobin A1C 8.5 % (<5.7)
[2025-04-16 12:37] LABS: COMMENT (LAB VIEW ONLY) 58.64 mg/dL; Microalb ug/mg Crea 45.4 ug/mg Cr
[2025-04-16 12:46] LABS: ALT 76 U/L (16-63); AST 27 U/L (15-37); Albumin 3.8 g/dL (3.4-5.0); Alkaline Phosphatase 52 U/L (46-116); Anion Gap 8.7 mmol/L (3-11); BUN 27 mg/dL (7-18); Bilirubin, Total 0.4 mg/dL (0.2-1.0); CO2 27.3 mmol/L (21.0-32.0); Calcium 9.4 mg/dL (8.5-10.1); Chloride 107 mmol/L (98-107); Estimated GFR 75.90 (mL/min/1.73m2); Glucose 162 mg/dL (74-106); Potassium 4.8 mmol/L (3.5-5.1); Sodium 143 mmol/L (136-145); Total Protein 7.5 g/dL (6.4-8.2)
[2025-04-16 12:48] LABS: C-Reactive Protein < 0.50 mg/dL (<or=0.5)
[2025-04-19 09:52] LABS: Lyme Ab w Rflx to Lyme Confirm Negative (Negative)
== END 2025-04-16 14:09 | disposition home or self-care (01) ==
LOC: LBO 14:08
PROVIDERS: PCP Nurse Practitioner Family; Visit Provider Nurse Practitioner Family
DX: E11.40 Type 2 diabetes mellitus with diabetic neuropathy, unspecified (principal)
CPT/HCPCS: 36415; 80053; 85652; 82043; 82570; 83036; 86140; 86618